=== PATIENT | male | born 1925 | race Caucasian/White ===

== ENCOUNTER 2017-01-27 13:41 | Inpatient (IN) ==
--- NOTE | 2017-01-27 14:11 | Emergency Department Report ---
General Adult HPI - General Chief complaint: Arrhythmia/Palpitations Stated complaint: Dick-40 Time Seen by Provider: 01/27/17 13:50 Source: patient, EMS Mode of arrival: EMS Limitations: no limitations - History of Present Illness HPI narrative: 89-year-old male presents to the emergency department via EMS with a chief complaint of bradycardia and bigeminal rhythm noted on cardiac rn following a questionable syncopal event versus mechanical fall into his car while attempting to get into the car. Patient denies any injury or trauma. Patient denies any pain or discomfort. Patient is well known to cardiology and Dr. Meehan. Patient was transported to [facility] via EMS. Patient was originally noted to be slightly hypotensive with a blood pressure in the 80s systolically with the bradycardia. IV fluid bolus was provided and the patient's blood pressure and heart rate both increased. Patient's heart rate comes up into the 66-72 bpm range and his blood pressure improved to approximately 100 systolically. Onset of symptoms was prior to arrival to the emergency department today. Patient denies any other complaints or associated symptoms. Symptoms have been persistent in nature with improvement as noted above. - Related Data Home Medications Medication Instructions Recorded Confirmed Amiodarone HCl 200 mg PO DAILY #0 07/31/15 01/27/17 Tamsulosin HCl 0.4 mg PO HS #0 07/31/15 01/27/17 Finasteride 5 mg PO DAILY #0 09/21/15 01/27/17 Multivitamin [Multi-Vitamin Daily] 1 tab PO DAILY #0 10/20/15 01/27/17 Carvedilol 3.125 mg PO BIDWM #0 04/14/16 01/27/17 Aspirin [Adult Low Dose Aspirin EC] 81 mg PO DAILY 01/27/17 01/27/17 Diphenhydra/Phenyleph/Acetamin 2 tab PO Q4H PRN 01/27/17 01/27/17 [Allergy Plus-Sinus Riggins Caplet] Ferrous Sulfate [Iron] 325 mg PO DAILY 01/27/17 01/27/17 Lisinopril [Prinivil] 5 mg PO DAILY 01/27/17 01/27/17 Nitroglycerin [Nitrostat] 0.4 mg SL Q5MIN3 PRN 01/27/17 01/27/17 Simvastatin [Zocor] 40 mg PO HS 01/27/17 01/27/17 Allergies Allergy/AdvReac Type Severity Reaction Status Date / Time fosinopril Allergy Unknown Verified 01/27/17 15:02 Sulfa (Sulfonamide Allergy Unknown HOARSENESS Verified 01/27/17 15:02 Antibiotics) Review of Systems Constitutional: Denies: fever, chills Eyes: Denies: eye pain, vision change ENT: Denies: ear pain, throat pain Cardiovascular: Denies: chest pain, palpitations Respiratory: Denies: cough, dyspnea Gastrointestinal: Denies: abdominal pain, nausea, vomiting, diarrhea Genitourinary: Denies: urgency, dysuria Musculoskeletal: Denies: back pain, arthralgia Integumentary: Denies: erythema, rash Neurological: Denies: headache, numbness Psychiatric: Denies: anxiety, depression Endocrine: Denies: fatigue, heat or cold intolerance Hematological/Lymphatic: Denies: easy bleeding, easy bruising Allergic/Immunologic: Denies: facial swelling, urticaria PFSH Patient Stated Medical History Cardiac Arrhythmia Yes Hypertension Yes Myocardial Infarction Yes Hx Renal Disease Yes Cardiac arrest in remote past. Surgical History: Valve replacement, CABG Family History: Reviewed and Non-contributory. - Social History Smoking status: Never smoker Substance use type: does not use Alcohol intake frequency: does not drink Physical Exam - Limitations Limitations: no limitations - General General appearance: alert, in no apparent distress - Normal Exams: Head:: Normocephalic without trauma Eyes:: Pupils are PERRLA w/ EOMI, No scleral icterus, irritation, or foreign bodies noted ENMT:: No facial trauma, nasal exudates, pharyngeal erythema, or exudates are noted Dental: No fractured, loose, or missing teeth noted Neck:: Full range of motion, without adenopathy, JVD, bruits or thyromegaly Chest/Respirations:: Clear all suarez, with good airflow, and symmetry bilaterally Cardiovascular:: Regular rate and rhythm, Pulses 2+ all extremities, capillary refill, <2 seconds all extremities Abdomen:: Bowel sounds positive, soft, non-tender, non-distended, no hepatosplenomegaly, masses or bruits noted Lymphatic:: No lymphadenopathy, or lymphedema noted Musculoskeletal:: No tenderness, or deformity noted, good range of motion, all extremities Integumentary:: No rashes, hives, or bruising noted, hair and nails, without abnormality Neurological:: Patient is alert, and oriented, cranial nerves, motor/sensory/ cerebellar, exams w/o gross deficits, to observation Psychiatric:: Patient exhibits, appropriate attention, emotion and affect Course Vital Signs Temperature 97.9 F 01/27/17 13:45 Pulse Rate 68 01/27/17 13:45 Respiratory Rate 22 01/27/17 13:45 Blood Pressure 99/55 01/27/17 13:45 Pulse Oximetry 93 01/27/17 13:45 Temperature 97.5 F 01/28/17 12:00 Pulse Rate 68 01/28/17 12:00 Respiratory Rate 24 01/28/17 12:00 Blood Pressure 135/73 01/28/17 12:00 Pulse Oximetry 99 01/28/17 12:00 Medical Decision Making - MDM Narrative Medical decision making narrative: Labs / imaging were discussed in detail with the patient and family and questions are answered. 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 Meehan comes to the ED to evaluate the patient after arrival to the ED. Upon arrival to the emergency department pacer pads were placed at bedside along with atropine. Patient is noted to have frequent PVCs on telemetry/EKG. Patient's chest x-ray shows slight fluid overload pattern. Pneumonia is not suspected due to the patient being afebrile, no productive cough, and normal white count. Discussion is had with Dr. Meehan and diuresis of the patient will be handled by Cardiology. 324 mg of aspirin by mouth times one were given in the emergency Department. Heparin drip will be initiated and monitored by the cardiology service as the patient is admitted to CCU to the service of the hospitalist and troponin is positive. Patient was discussed with Dr. Tobar and admitted to his service in improved condition. No further orders from accepting or consulting physicians who were in agreement with the current plan of management. Patient and family are in agreement with the current plan of management. Patient is admitted to the hospital in improved condition. - Lab Data Result diagrams: 01/28/17 12:50 01/28/17 04:11 Lab Results 01/27/17 Range/Units 13:24 D-Dimer 2646 H (0-230) NG/ML - EKG Data EKG #1 EKG results narrative: Sinus rhythm with first-degree AV block. Right bundle branch block. 72 bpm. Frequent PVCs. No STEMI. Reviewed with Dr. Meehan of cardiology at bedside who agrees with interpretation. Critical Care Time Critical Care Time: Yes Total Critical Care Time: 47 Attestation: 47 minutes of critical care time was assessed to the patient who was admitted to the hospital with a positive troponin. Patient was admitted to the ICU. Patient required complex medical decision-making, repeated assessment at the bedside, and had a potential for decompensation. Critical care time was spent treating the patient, and documenting the medical record, discussing the patient plan of care with family and specialists, and making telephone calls on the patient's past. Disposition Clinical Impression: Elevated troponin Disposition: 02 To [facility] Acute Care Condition: Improved Time of Disposition: 15:00 (Admit: Dr. Tobar. ) - Seen By: physician
--- NOTE | 2017-01-27 14:20 | XRay Report ---
Indication: Bradycardia PROCEDURE: XR chest 1V: Encounter: Initial Comparison: January 25, 2017 Findings: Prior sternotomy and cardiac valve replacement. Prior CABG. Bilateral shoulder replacements. Continued small effusions with lower lobe airspace disease that may be slightly worsened on the right. No pneumothorax. Cardiac silhouette remains moderately enlarged. Mediastinal contours are stable with a tortuous ectatic thoracic aorta. Impression: Continued findings of CHF with possible superimposed right lower lobe pneumonia or aspiration. .
[2017-01-27] MEDS ORDERED: ASPIRIN 81 MG CHEWABLE TABLET PO ONE (15:02)
[2017-01-27] MEDS ORDERED: NITROGLYCERIN 0.4 MG SUBLINGUAL TABLET SL PRN (16:40)
[2017-01-27] MEDS ORDERED: AMIODARONE 200 MG TABLET PO SCH (16:45)
--- NOTE | 2017-01-27 16:48 | History & Physical Report ---
History of Present Illness Date: 01/27/17 Chief complaint: Had a fall HPI: Pt was at a in which he drank a bit too much coffee, then when he was going to get back on his car, he felt a bit clumsy and fell backwards with no head trauma or LOC. Paramedics were called. Pt was apparently found to have an abnormal rhythm and breathing and was brought to the ED. At the ED initially pt had very frequent PVC's in a bigemini pattern, he was given IVF on route and currently he is not having frequent ectopy. Pt states he is feeling fine. He is on O2, he states he does not have COPD and is not on home O2. A sample was obtained to check TnI this was processed here at 14:16 and was a bit high @ 0.151. Pt states he discussed his current situation with Dr Meehan and he agreed to stay and be observed in the ICU. Pt denies current CP, or SOB. He denies any PND, orthopnea, nocturia. Pt has extensive cardiac history including being S/P CABG (30 years ago), he recalls having a stent and had about 1 year ago a vascular procedure to replace his Aortic Valve. He denies having syncope , and still drives. Review of Systems Comprehensive ROS: completed and no additional positive findings except those as stated PFSH Patient Stated Medical History Cardiac Arrhythmia Yes Hypertension Yes Myocardial Infarction Yes Hx Renal Disease Yes - Social History Smoking status: Former smoker Substance use type: does not use Alcohol intake frequency: does not drink Current residence: Apartment/Private Home Medications Home Medications Medication Instructions Recorded Confirmed Type Amiodarone HCl 200 mg PO DAILY #0 07/31/15 01/27/17 History Tamsulosin HCl 0.4 mg PO HS #0 07/31/15 01/27/17 History Finasteride 5 mg PO DAILY #0 09/21/15 01/27/17 History Multivitamin [Multi-Vitamin Daily] 1 tab PO DAILY #0 10/20/15 01/27/17 History Carvedilol 3.125 mg PO BIDWM #0 04/14/16 01/27/17 History Aspirin [Adult Low Dose Aspirin EC] 81 mg PO DAILY 01/27/17 01/27/17 History Diphenhydra/Phenyleph/Acetamin 2 tab PO Q4H PRN 01/27/17 01/27/17 History [Allergy Plus-Sinus Riggins Caplet] Ferrous Sulfate [Iron] 325 mg PO DAILY 01/27/17 01/27/17 History Lisinopril [Prinivil] 5 mg PO DAILY 01/27/17 01/27/17 History Nitroglycerin [Nitrostat] 0.4 mg SL Q5MIN3 PRN 01/27/17 01/27/17 History Simvastatin [Zocor] 40 mg PO HS 01/27/17 01/27/17 History Allergies Allergy/AdvReac Type Severity Reaction Status Date / Time fosinopril Allergy Unknown Verified 01/27/17 15:02 Sulfa (Sulfonamide Allergy Unknown HOARSENESS Verified 01/27/17 15:02 Antibiotics) Exam Vital Signs: Temperature 97.9 F 01/27/17 13:45 Pulse Rate 60 01/27/17 15:22 Respiratory Rate 20 01/27/17 15:22 Blood Pressure 108/61 01/27/17 15:22 Pulse Oximetry 98 01/27/17 15:22 Height/Weight/BMI: Height 5 ft 8 in Weight 72.575 kg - Constitutional Present: no acute distress, thin - Routine HEENT Exam Head: Present: normocephalic, atraumatic Eye: Present: EOMI, PERRL - Routine Neck Exam Present: supple - Routine Respiratory Exam Present: CTA bilaterally - Routine Cardiovascular Exam Present: RRR Comments: With frequent ectopy. Distant heart sounds. Midline scar from old CABG. - Routine Abdominal Exam Present: soft, normoactive bowel sounds, non distended, non tender - Routine Extremities Exam Absent: cyanosis, clubbing, edema - Routine Neurological Exam Present: alert, oriented X3, CN II-XII intact - Routine Psychiatric Exam Present: normal affect, cooperative Results - Labs CBC & Chem 7: 01/27/17 Unknown 01/27/17 Unknown Assessment and Plan DVT Prophylaxis: SCD's GI Prophylaxis: other Resuscitation Status: Full Code Assessment and Plan: CXR '...................................... PROCEDURE: XR chest 1V: Encounter: Initial Comparison: January 25, 2017 Findings: Prior sternotomy and cardiac valve replacement. Prior CABG. Bilateral shoulder replacements. Continued small effusions with lower lobe airspace disease that may be slightly worsened on the right. No pneumothorax. Cardiac silhouette remains moderately enlarged. Mediastinal contours are stable with a tortuous ectatic thoracic aorta. Impression: Continued findings of CHF with possible superimposed right lower lobe pneumonia or aspiration. ..................................................." SUMMARY - This is an 89 YO male that had a fall today. He presents with DUSTY, probably with dehydration and elevated TnI. Initially his telemetry showed frequent ectopy (Pt is on Amiodarone), that is now improved. His CXR suggests volume overload. He could be having a type II elevation of his TnI, will follow up serially. 1) CARDIOVASCULAR ASSESMENT A) CAD - S/P CABG WITH MILD ELEVATION OF THE TNI (Type I vs Type II). Also mild elevation of the TnI is seen in CKD. - R/O ACS - Admit to the ICU - Nitrates, BB rate control. - ASA - Consult cardiology - Check a D-Dimer if high - check a V/Q scan. - Check TnI @ 20:00 and at 4:00AM B) CHF ? Per CXR volume overload is suggested, renal function sugggests pt is dry unless this is chronic . - Check FENA now. - Will not be aggresive with fluids at this time. C) S/P AVR D) Pt gave H.O Sudden cardiac (Was successfully resucitated) 2) CKD with possible superimposed DUSTY. - Elevated BUN/Cr but ratio is normal. - Will observe serially. - Hold ACEI. 3) HYPERNATREMIA, PROBABLY HYPOVOLEMIC. - Suggests dehydration, pt was given fluid bolus via the ED - Will recheck in the AM - PT should be able to correct this on his own. 4) ANEMIA, Could be of chronic illness, but will check studies due to high MCV. 5) Leukocytosis - Could be due to acute stress - PNA ? No clinical findings to suggest, will follow serially. 6) CODE STATUS - FULL Prevention Heparin and PPI (IV) Hospital Course Summary Disclaimer: The visit summary below is not to be considered part of the above Progress Note.
[2017-01-27] MEDS ORDERED: PANTOPRAZOLE 40 MG INJECTION IVP ONE (17:15)
[2017-01-27] MEDS ORDERED: HEPARIN 5,000unit/ml 1ml INJECTION IV SCH (17:15)
[2017-01-27 17:44] VITALS: BMI 20.8
[2017-01-27] MEDS: CARVEDILOL 3.125 MG TABLET PO SCH (18:41)
[2017-01-27] MEDS ORDERED: HEPARIN - PHARMACY CONSULT MC ONE (18:46)
[2017-01-27] MEDS ORDERED: FUROSEMIDE 100 MG/10 ML INJECTION IVP ONE (18:50)
[2017-01-27] MEDS ORDERED: HEPARIN SUB-Q 5,000 UNITS/0.5 ML INJECTION SQ SCH (19:00)
--- NOTE | 2017-01-27 19:13 | Cardiology Consult Note ---
History of Present Illness Consult date: 01/27/17 <Kira Silverman 01/27/17 19:28> Requesting physician: Ran Tobar <Kira Silverman 01/27/17 19:28> Consult reason: congestive heart failure <Kira Silverman 01/27/17 19:28> Chief complaint: Fall <Kira Silverman 01/27/17 19:28> History of present illness: Yon is a 89 year old male who is well known to Dr. Meehan with a history of CAD, CABG, Aortic stenosis, Cardiomyopathy, HTN, DSLD, and PVD. On 09/21/2015, he underwent a heart [place] at [facility] [place] at which time he had PTCA of the obtuse marginal through the vein graft to the obtuse marginal. On 10/20/2015 he had PCI and stent to the vein graft to the posterior descending artery (PDA). Today he was at a , when he was going to get back on his car, he fell backwards with no head trauma or LOC. EMS arrived and he was found to have an abnormal heart rhythm and breathing and was brought to the ED. In the ED, he had very frequent PVC's in a bigemini pattern, he was given IVF on route. Initial Troponin is 0.151. Dr. Meehan examined the patient and he agreed to stay and be observed in the ICU. He denied recent illness, fever, chills, cough, sore throat, chest pain, pressure or tightness, or dyspnea. He denies any PND, orthopnea, nocturia. He denies having syncope, and still drives. <AndraKira Michel 01/27/17 19:28> Review of Systems - Constitutional Constitutional: Absent: chills, fatigue, fever(s) <Kira Silverman 01/27/17 19:28> - EENMT Eyes: Absent: blurry vision <AndraKira Michel 01/27/17 19:28> Balance: Absent: vertigo <AndraKira Michel 01/27/17 19:28> Mouth/Throat: Absent: sore throat <AndraKira Michel 01/27/17 19:28> - Cardiovascular Cardiovascular: Absent: chest pain, palpitations, syncope, dyspnea on exertion, orthopnea <Kira Silverman 01/27/17 19:28> Rhythm: Absent: abnormal rhythm <AndraKira byers 01/27/17 19:28> Vascular: Absent: pedal edema <AndraKira byers 01/27/17 19:28> - Respiratory Respiratory: Absent: cough, dyspnea <AndraKira 01/27/17 19:28> - Gastrointestinal Gastrointestinal: Absent: constipation, diarrhea, nausea, vomiting <Andra Kira 01/27/17 19:28> - Genitourinary Genitourinary: Absent: dysuria <AndraKira 01/27/17 19:28> - Integumentary/Breasts Integumentary: Absent: rash <AndraKira 01/27/17 19:28> - Neurological Neurological: Absent: dizziness, frequent falls <AndraKira 01/27/17 19: 28> [facility] Patient Stated Medical History Cardiac Arrhythmia Yes Hypertension Yes Myocardial Infarction Yes Hx Renal Disease Yes <Moncho Meehan - 02/03/17 13:54> Patient Stated Medical History Cardiac Arrhythmia Yes Hypertension Yes Myocardial Infarction Yes Hx Renal Disease Yes <AndraKira 01/27/17 19:28> Surgical History: Cardiac: cardiac bypass, cardiac cath. Joint: hip, knee, shoulder <AndraKira 01/27/17 19:28> Family History: [place] DM <AndraKira 01/27/17 19:28> - Social History Smoking status: Former smoker <AndraKira 01/27/17 19:28> Substance use type: does not use <AndraKira 01/27/17 19:28> Alcohol intake frequency: does not drink <AndraKira 01/27/17 19:28> Housing: apartment <AndraKira 01/27/17 19:28> Current occupational status: retired <AndraKira byers 01/27/17 19:28> Current residence: Apartment/Private Home <AndraKira byers 01/27/17 19:28> Medications Home Medications Medication Instructions Recorded Confirmed Type Amiodarone HCl 200 mg PO DAILY #0 03/18/16 09/15/17 History Tamsulosin HCl 0.4 mg PO HS #0 07/31/15 01/27/17 History Finasteride 5 mg PO DAILY #0 09/21/15 01/27/17 History Multivitamin [Multi-Vitamin Daily] 1 tab PO DAILY #0 10/20/15 01/27/17 History Carvedilol 3.125 mg PO BIDWM #0 04/14/16 01/27/17 History Aspirin [Adult Low Dose Aspirin EC] 81 mg PO DAILY 01/27/17 01/27/17 History Ferrous Sulfate [Iron] 325 mg PO DAILY 01/27/17 01/27/17 History Nitroglycerin [Nitrostat] 0.4 mg SL Q5MIN3 PRN 01/27/17 01/27/17 History Simvastatin [Zocor] 40 mg PO HS 01/27/17 01/27/17 History <Moncho Meehan - 02/03/17 13:54> Allergies Allergy/AdvReac Type Severity Reaction Status Date / Time fosinopril Allergy Unknown Verified 01/27/17 15:02 Sulfa (Sulfonamide Allergy Unknown HOARSENESS Verified 01/27/17 15:02 Antibiotics) <Moncho Meehan - 02/03/17 13:54> Exam Vital signs: Temperature 96.6 F L 02/03/17 07:47 Pulse Rate 61 02/03/17 07:47 Respiratory Rate 17 02/03/17 07:47 Blood Pressure 122/65 02/03/17 07:47 Pulse Oximetry 93 02/03/17 07:47 <Moncho Meehan - 02/03/17 13:54> Temperature 98.5 F 01/27/17 17:51 Pulse Rate 64 01/27/17 18:30 Respiratory Rate 27 H 01/27/17 18:30 Blood Pressure 118/66 01/27/17 18:30 Pulse Oximetry 91 01/27/17 18:30 <Kira Silverman - 01/27/17 19:28> - Constitutional no acute distress, well nourished, cooperative <Kira Silverman - 01/27/17 19: 28> - Routine HEENT Exam Head: Present: normocephalic <Kira Silverman 01/27/17 19:28> ENT: Present: mucous membranes moist <Kira Silverman [facility] 01/27/17 19:28> - Routine Neck Exam Absent: JVD, carotid bruit <Kira Silverman [facility] 01/27/17 19:28> - Routine Chest/Breast/Axilla Exam Chest wall: Absent: tenderness <AndraKira byers [facility] 01/27/17 19:28> - Routine Respiratory Exam Present: CTA bilaterally. Absent: rales, wheezes <Kira Silverman [facility] 01/27/17 19:28> - Routine Cardiovascular Exam Present: murmur (III/), irregular rhythm <Kira Silverman [facility] 01/27/17 19:28> - Routine Abdominal Exam Present: soft, normoactive bowel sounds <Kira Silverman 01/27/17 19:28> - Routine Extremities Exam Present: no edema <AndraKira byers 01/27/17 19:28> - Routine Skin Exam Present: intact, dry, warm <Kira Silverman 01/27/17 19:28> - Routine Neurological Exam Present: alert, oriented X3 <AndraKira byers [facility] 01/27/17 19:28> - Routine Psychiatric Exam Present: normal affect, normal thought process <AndraKira byers [facility] 01/27/17 19: 28> Results 02/03/17 04:54 02/03/17 04:54 <Moncho Meehan - 02/03/17 13:54> CBC 02/03/17 Range/Units 04:54 WBC 5.4 (4.5-11.0) T/MM3 RBC 3.05 L (4.50-5.90) M/MM3 Hgb 10.6 L (13.5-17.5) GM/DL Hct 31.5 L (41-53) % Plt Count 55 L (130-400) T/MM3 Comprehensive Metabolic Panel 02/03/17 Range/Units 04:54 Sodium 142 (134-144) MEQ/L Potassium 4.7 (3.6-5) MEQ/L Chloride 102 (98-107) MEQ/L Carbon Dioxide 29 (22-30) MEQ/L BUN 63.0 H* (9-20) MG/DL Creatinine 2.6 H (0.8-1.5) MG/DL Glucose 94 (75-110) MG/DL Calcium 9.0 (8.4-10.2) MG/DL Intake and Output 02/02/17 02/03/17 02/03/17 22:59 06:59 14:59 Intake Total 100 / 100 200 / 200 240 / 240 Output Total 700 / 700 775 / 775 600 / 600 Balance -600 / -600 -575 / -575 -360 / -360 Intake: Oral 100 / 100 200 / 200 240 / 240 Output: Urine 700 / 700 775 / 775 600 / 600 Other: Urine Appearance Clear Clear Clear Urine Color Yellow Yellow Pale Yellow Urine Odor Normal Normal # Voids 1 <Moncho Meehan - 02/03/17 13:54> Cardiac Enzymes 01/27/17 Range/Units Unknown AST 37 (17-59) U/L Troponin I 0.151 H (0-0.12) ng/ml CBC 01/27/17 Range/Units Unknown WBC 7.9 (4.5-11.0) T/MM3 RBC 3.14 L (4.50-5.90) M/MM3 Hgb 10.8 L (13.5-17.5) GM/DL Hct 33.9 L (41-53) % Plt Count 114 L (130-400) T/MM3 Neut # 6.6 (1.8-7.7) T/MM3 Lymph # 0.8 L (1-4.8) T/MM3 [place] # 0.5 (0-0.8) T/MM3 Eos # 0.0 (0-0.5) T/MM3 Baso # 0.0 (0-0.2) T/MM3 Comprehensive Metabolic Panel 01/27/17 Range/Units Unknown Sodium 149 H (134-144) MEQ/L Potassium 4.5 (3.6-5) MEQ/L Chloride 112 H (98-107) MEQ/L Carbon Dioxide 24 (22-30) MEQ/L BUN 49.0 H (9-20) MG/DL Creatinine 2.7 H (0.8-1.5) MG/DL Glucose 102 (75-110) MG/DL Calcium 9.0 (8.4-10.2) MG/DL AST 37 (17-59) U/L ALT 42 (21-72) U/L Alkaline Phosphatase 57 (38-126) U/L Total Protein 6.4 (6.3-8.2) G/DL Albumin 3.6 (3.5-5.0) G/DL Intake and Output 01/27/17 01/27/17 01/27/17 06:59 14:59 22:59 Other: Weight 145 lb 8.081 oz Patient Weight 01/28/17 06:59 Weight 145 lb 8.081 oz Abnormal Lab Results 01/27/17 01/27/17 01/27/17 13:24 Unknown Unknown WBC 7.9 RBC 3.14 L Hgb 10.8 L Hct 33.9 L MCV 108.0 H MCH 34.4 H MCHC 31.9 RDW Std Deviation 55.4 H Plt Count 114 L MPV 11.2 Immature Gran % (Auto) 0.5 Neut % (Auto) 83.3 H Lymph % (Auto) 9.6 L [place] % (Auto) 6.2 Eos % (Auto) 0.1 Baso % (Auto) 0.3 Neut # 6.6 Lymph # 0.8 L [place] # 0.5 Eos # 0.0 Baso # 0.0 Abs Immat Gran (auto) 0.04 H Absolute Retic Percent Retic Immature Retic Fraction Retic Hgb Content CHr D-Dimer 2646 H Turbidity < 20 Sodium 149 H Potassium 4.5 Chloride 112 H Carbon Dioxide 24 Anion Gap 13 BUN 49.0 H Creatinine 2.7 H GFR Calculation 22 BUN/Creatinine Ratio 18 Glucose 102 Calculated Osmolality 299 H Calcium 9.0 Total Bilirubin 0.80 Icterus Index < 2 AST 37 ALT 42 Alkaline Phosphatase 57 Troponin I 0.151 H Total Protein 6.4 Albumin 3.6 Globulin 2.8 Albumin/Globulin Ratio 1.3 Specimen Hemolysis < 15 01/27/17 Unknown WBC RBC Hgb Hct MCV MCH MCHC RDW Std Deviation Plt Count MPV Immature Gran % (Auto) Neut % (Auto) Lymph % (Auto) [place] % (Auto) Eos % (Auto) Baso % (Auto) Neut # Lymph # [place] # Eos # Baso # Abs Immat Gran (auto) Absolute Retic 0.0756 Percent Retic 2.4 H Immature Retic Fraction 12.9 Retic Hgb Content CHr 33.8 D-Dimer Turbidity Sodium Potassium Chloride Carbon Dioxide Anion Gap BUN Creatinine GFR Calculation BUN/Creatinine Ratio Glucose Calculated Osmolality Calcium Total Bilirubin Icterus Index AST ALT Alkaline Phosphatase Troponin I Total Protein Albumin Globulin Albumin/Globulin Ratio Specimen Hemolysis <Kira Silverman - 01/27/17 19:28> - Imaging and Cardiology EKG results: image reviewed <Kira Silverman - 01/27/17 19:28> Imaging & Cardiology Narrative: Date of Exam: 01/27/17 Ordering Provider: Agapito Rascon DO Type of Exam(s): XR chest 1V Reason for Exam(s): Bradycardia Indication: Bradycardia PROCEDURE: XR chest 1V: Encounter: Initial Comparison: January 25, 2017 Findings: Prior sternotomy and cardiac valve replacement. Prior CABG. Bilateral shoulder replacements. Continued small effusions with lower lobe airspace disease that may be slightly worsened on the right. No pneumothorax. Cardiac silhouette remains moderately enlarged. Mediastinal contours are stable with a tortuous ectatic thoracic aorta. Impression: Continued findings of CHF with possible superimposed right lower lobe pneumonia or aspiration. 01/27/17 19:19 <Kira Silverman - 01/27/17 19:28> EKG interpretations - Dysrhythmias Sinus rhythms and dysrhythmias: sinus rhythm <Kira Silverman - 01/27/17 19:28> Ventricular dysrhythmias: ventricular premature complexes <Kira Silverman - 19:28> - Blocks, axis, hypertrophy, ST abn AV and intraventricular conduction: 1 AV block, right bundle branch block (fixed /intermittent, complete/incomplete) <Kira Silverman - 01/27/17 19:28> Repolarization changes or abnormalities: nonspecific abnormality, ST segment, and/or T wave <Kira Silverman - 01/27/17 19:28> Assessment and Plan - Attestation Attestation Narrative: 02/03/17 13:54 Recommendation After examining the patient I agree with the above assessment. I am involved in the formulation of the patient's plan of care. <Moncho Meehan - 02/03/17 13:54> - Assessment and Plan (1) Atherosclerotic heart disease of [place] coronary artery without angina pectoris Status: Acute (2) Elevated troponin Status: Resolved (3) CKD (chronic kidney disease) Status: Acute (4) Cardiomyopathy Status: Acute (5) Essential (primary) hypertension Status: Acute (6) Mixed hyperlipidemia Status: Acute (7) Dyspnea, unspecified Status: Acute (8) Ventricular premature complex Status: Chronic <Moncho Meehan - 02/03/17 13:54> (1) Dyspnea, unspecified (2) Atherosclerotic heart disease of [place] coronary artery without angina pectoris Status: Acute (3) Elevated troponin Status: Acute Could be due to hypotensive episode, chronic kidney disease or ACS. Trend serial troponins. Heparin drip per pharmacy protocol. (4) CKD (chronic kidney disease) Status: Acute (5) Cardiomyopathy Status: Acute Continue home Coreg (6) Essential (primary) hypertension Status: Acute continue Lisinopril (7) Mixed hyperlipidemia Status: Acute Takes Simvastatin, PCP manages <Kira Silverman 01/30/17 17:57> Hospital Course Summary Disclaimer: The visit summary below is not to be considered part of the above Progress Note. <Moncho Meehan - 02/03/17 13:54> The visit summary below is not to be considered part of the above Progress Note. <Kira Silverman 01/27/17 19:28> Sepsis Assessment - Evaluation Sepsis screening result: No Definite Risk <Kira Silverman 01/27/17 19:28>
[2017-01-27] MEDS: AMIODARONE 900 MG in NS 500ml 500 ML IV SCH (19:18)
--- NOTE | 2017-01-27 19:23 | Pharmacy Consult ---
Pharmacy Consult-Heparin - Laboratory Information Heparin Plt Count 114 T/MM3 (130-400) L 01/27/17 Unknown - Consult Information Heparin drip per pharmacy protocol 5000 units of Heparin SQ given less than 1 hour prior to Heparin drip orders. No Bolus ordered due to SQ Heparin. Start Heparin drip at 800 units/hr (20 ml/hr ) goal PTT range- 50-75 sec. Pharmacy will monitor and adjust as needed. Thank you, Randi Gill [facility]
[2017-01-27] MEDS: HEPARIN DRIP 20,000 UNIT/500 ML BAG IV SCH (19:26)
[2017-01-27] MEDS ORDERED: SALINE 0.65% NASAL SPRAY 44 ML BOTTLE EA NOSTRIL PRN (19:51)
[2017-01-27] MEDS: TAMSULOSIN 0.4 MG CAPSULE PO SCH (20:07)
[2017-01-27] MEDS: SIMVASTATIN 40 MG TABLET PO SCH (20:07)
--- NOTE | 2017-01-28 06:38 | Pharmacy Consult ---
Pharmacy Consult-Heparin - Laboratory Information Heparin Plt Count 77 T/MM3 (130-400) L 01/28/17 04:11 APTT 62.9 SEC (24-36) H 01/28/17 04:11 - Consult Information We will continue heparin drip at current rate of 20mL per hour. Ordered 2nd PTT at 1200 today and adjust if needed. Platelet count was noted at 77 T/MM3 with last lab. Thanks
[2017-01-28] MEDS: ASPIRIN *EC* 81 MG TABLET PO SCH (08:18)
[2017-01-28] MEDS: FINASTERIDE 5 MG TABLET PO SCH (08:18)
[2017-01-28] MEDS: FERROUS SULFATE 324 MG TABLET PO SCH (08:18)
[2017-01-28] MEDS: CARVEDILOL 3.125 MG TABLET PO SCH ×2 (08:18→18:11)
[2017-01-28] MEDS ORDERED: LISINOPRIL 5 MG TABLET PO SCH (09:00)
--- NOTE | 2017-01-28 10:37 | Progress Note ---
Subjective: Pt states he is feeling fine, he did not sleep well last night, otherwise appears to be doing fairly well. Noted Heparin drip and Amiodarone drip. Objective Vital signs: Temperature 97.6 F 01/27/17 20:15 Pulse Rate 67 01/28/17 08:00 Respiratory Rate 18 01/28/17 06:00 Blood Pressure 150/74 H 01/28/17 06:00 Pulse Oximetry 93 01/28/17 06:00 Height/Weight/BMI: Height 5 ft 10 in Weight 66.3 kg Body Mass Index 20.8 - Constitutional Present: no acute distress - Routine HEENT Exam Head: Present: normocephalic, atraumatic Eye: Present: EOMI, PERRL - Routine Respiratory Exam Present: CTA bilaterally - Routine Cardiovascular Exam Present: irregular rhythm - Routine Abdominal Exam Present: soft, non distended, non tender - Routine Extremities Exam Absent: cyanosis, clubbing, edema - Routine Neurological Exam Present: alert, oriented X3, CN II-XII intact - Routine Psychiatric Exam Present: normal affect, cooperative Results - Labs CBC & Chem 7: 01/28/17 04:11 01/28/17 04:11 Assessment and Plan (1) Elevated troponin Current visit: Yes Status: Acute 01/28/17 10:33 Could be due to CHF, as it remains "Flat" or due to CKD. (2) Thrombocytopenia Current visit: Yes Status: Acute DVT Prophylaxis: Heparin drip GI Prophylaxis: other Resuscitation Status: Full Code Assessment and Plan: SUMMARY - This is an 89 YO male that had a fall today, then was brought to the ED by the paramedics. Pt had marked ectopy (Frequent PVC's). He presents with DUSTY, probably with dehydration and elevated TnI. Initially his telemetry showed frequent ectopy, this has now improved (pt is at the ICU on Amiodarone drip). His CXR on admission suggested volume overload. His platelets fell precipitously from yesterday (114K -> 77K); will recheck at 12:30 today (01/28) . 1) CARDIOVASCULAR ASSESMENT A) CAD - S/P CABG WITH MILD ELEVATION OF THE TNI (Type I vs Type II). His TnI is flat suggesting a Type II elevation (CHF +/- CKD) - Continue close observation in the ICU. - Nitrates, BB rate control. - ASA - Check a V/Q scan now, since D-Dimer did not R/O a PE. B) CHF ? Per CXR volume overload is suggested, renal function suggests pt is dry unless this is chronic . - FENA above 1%; reliability is questionable if pt received lasix before the sample was taken. C) S/P AVR D) Sudden cardiac (Was successfully resucitated) 2) CKD with possible superimposed DUSTY. FENA on admission was 1.6%, pt was on Lasix. Would be able to tell better if we could do a fractional excretion of urea, but that test is not done here. - BUN/Cr (01/28) = 50/2.5 - FENA (01/27) = 1.6% - Continue holding ACEI. - Phosphorus is high - pt on Zocor - will check CPK. 3) HYPERNATREMIA, PROBABLY HYPOVOLEMIC; IMPROVING. - Na is 146 (01/28) - PT should be able to correct this on his own. 4) HEMATOLOGICAL ASSESMENET A) ANEMIA, Could be of chronic illness, but will check studies due to high MCV. B) Thrombocytopenia, worse. - PLT on admission - 114 K; today 77K, will recheck at 12:30 C) Leukocytosis - Could be due to acute stress - PNA ? No clinical findings to suggest, infiltrates most likely due to failurel. 5) CODE STATUS - FULL Prevention PPI (IV) Pt is on therapetutic Heparin. - Time spent with patient 25 - 35 minutes Sepsis Assessment - Evaluation Sepsis screening result: No Definite Risk Hospital Course Summary Disclaimer: The visit summary below is not to be considered part of the above Progress Note.
--- NOTE | 2017-01-28 11:26 | Cardiology Progress Note ---
Subjective Principal diagnosis: CAD, s/p CABG, PCI; Severe , s/p TAVR; Ischemic Cardiomyopathy (improved) Interval history: Mr Sepulveda, is feeling well this am. PVC's have significantly improved. He is on Amiodarone infusion, and on IV Heparin gtt. Troponins remained flat. He is sitting in chair comfortably, doesn't appear in respiratory distress at rest. Chart review revealed; Patient has long standing CAD, underwent CABG long time ago, in 2015 underwent PTCA of [place] PDA via SVG to PDA in 10/2015. He at that time had severely reduced LV function (LVEF 30%); and severe aortic stenosis. He then underwent Transfemoral Transcatheter Aortic Valve Replacement (Left TF- TAVR), using a 26mm Gibson-3 bioprosthesis on 12/2015. He did well after TAVR, his LV function improved. His one year follow-up echo on 12/2016, showed normal LV function. He was seen in Valve clinic at [facility], and was doing well at that time. Reports for last week or two developed significant dyspnea with minimal exertion, he saw Dr Meehan in clinic on 01/25/17, was advised to undergo Adenosine MPI, scheduled in 2-3 weeks. Exam Vital signs: Temperature 97.8 F 01/28/17 10:00 Pulse Rate 52 L 01/28/17 10:00 Respiratory Rate 24 01/28/17 10:00 Blood Pressure 135/57 01/28/17 10:00 Pulse Oximetry 92 01/28/17 10:00 - Constitutional no acute distress, thin, cooperative - Routine Neck Exam Present: supple, JVD, normal carotid upstroke - Routine Chest/Breast/Axilla Exam Chest wall: Absent: tenderness Axillae: Absent: lymphadenopathy - Routine Respiratory Exam Present: crackles Comments: occasional left basal crackles - Routine Cardiovascular Exam Present: RRR, S1, murmur, S3 Comments: mid-systolic murmur over aortic region - Routine Abdominal Exam Present: soft, non distended, non tender - Routine Extremities Exam Present: no edema - Routine Neurological Exam Present: alert, oriented X3 Progress Note-A&P - Time Spent With Patient Total time spent is greater than 50% in coordination of care (as documented) at patient's floor/unit and/or counseling patient: greater than 35 minutes (1) Atherosclerotic heart disease of [place] coronary artery without angina pectoris Status: Acute Current Visit: Yes (2) Elevated troponin Status: Acute Current Visit: Yes (3) CKD (chronic kidney disease) Status: Acute Current Visit: Yes (4) Cardiomyopathy Status: Acute Current Visit: Yes (5) Essential (primary) hypertension Status: Acute Current Visit: Yes (6) Mixed hyperlipidemia Status: Acute Current Visit: Yes - Assessment and Plan 1. Syncope: frequent ectopy noted on telemetry Speaking with him, is appears to be a mechanical fall, rather than a true syncopal event. But given significant ectopy, we will treat with intravenous amiodarone ( ectopy has improved), and then resume home amiodarone Monitor on telemetry 2. Elevated troponins: Remained flat, in setting of DUSTY, likely due to delayed clearance rather than acute coronary syndrome EKG largely unchanged from before (baseline RBBB with ST-T changes) Patient reports no symptoms We can stop heparin gtt now from ACS stand-point, but if pulmonary embolism is suspected may be reasonable to continue until diagnosis is made or rejected 3. CAD, s/p CABG & PCI Continue ASA May be reasonable to hold Statin in setting of DUSTY Continue Carvedilol 4. Hx Severe , s/p TAVR Repeat TTE, to assess valve function and LV function and filling pressures 5. DUSTY on CKD: Baseline Creat 1.5-1.8 Hold lisinopril Appears near euvolemic at this time, will hold off on further diuresis 6. Progressively worsening dyspnea: Unclear etiology at this point, will need further work-up Will repeat TTE, to assess valve function and LV function and filling pressures Agree with VQ Scan to rule out PE He will likely need a coronary evaluation, but due to DUSTY, can be delayed Will need PFTs once respiratory status improves Sepsis Assessment - Evaluation Sepsis screening result: No Definite Risk Hospital Course Summary Disclaimer: The visit summary below is not to be considered part of the above Progress Note.
--- NOTE | 2017-01-28 15:49 | Pharmacy Consult ---
Pharmacy Consult-Heparin - Laboratory Information Heparin Plt Count 96 T/MM3 (130-400) L 01/28/17 12:50 APTT 62.1 SEC (24-36) H 01/28/17 12:50 - Consult Information Heparin protocol day 2 goal PTT range= 50-75 PTT = 62.1 sec is within goal range. Continue Heparin drip at 800 unit/hr ( 20 ml/hr). next PTT with am labs. Pharmacy will monitor and adjust as needed. Thank you for the dosing protocol, Randi Gill RPH
[2017-01-28] MEDS: AMIODARONE 200 MG TABLET PO SCH (20:00)
[2017-01-28] MEDS: HEPARIN DRIP 20,000 UNIT/500 ML BAG IV SCH (20:00)
[2017-01-28] MEDS: AMIODARONE 900 MG in NS 500ml 500 ML IV SCH (21:08)
[2017-01-28] MEDS: TAMSULOSIN 0.4 MG CAPSULE PO SCH (21:30)
[2017-01-28] MEDS: SIMVASTATIN 40 MG TABLET PO SCH (21:30)
[2017-01-28] MEDS: CALCIUM CARBONATE Chewable 750mg TABLET PO PRN (21:31)
--- NOTE | 2017-01-29 08:23 | Pharmacy Consult ---
Pharmacy Consult-Heparin - Laboratory Information Heparin Plt Count 87 T/MM3 (130-400) L 01/29/17 03:50 APTT 56.2 SEC (24-36) H 01/29/17 03:50 - Consult Information HEPARIN CONSULT (Recurring): PTT = 56.2 Sec. Platelet count = 77 T/mm3. Will continue Heparin Drip at 800 units/hr (20 ml/hr). Will recheck PTT and adjust regimen as needed. Thank you.
[2017-01-29] MEDS: AMIODARONE 200 MG TABLET PO SCH (09:11)
[2017-01-29] MEDS: ASPIRIN *EC* 81 MG TABLET PO SCH (09:11)
[2017-01-29] MEDS: CARVEDILOL 3.125 MG TABLET PO SCH ×2 (09:24→17:02)
[2017-01-29] MEDS: FINASTERIDE 5 MG TABLET PO SCH (09:25)
[2017-01-29] MEDS: FERROUS SULFATE 324 MG TABLET PO SCH (09:25)
--- NOTE | 2017-01-29 11:41 | Progress Note ---
Subjective: Mr. Sepulveda complains of exertional dyspnea walking very short distances. He is not short of breath at rest and denies cough, pleuritic pain, or chest pain. He reports having chronic nocturnal nasal congestion and that using oxygen helped last night. No hypoxia was reported however patient was described as being somewhat labored prior to initiation of oxygen. He additionally described gas pains which were not relieved with Tums and continues to report epigastric "acid" pain at night for which she uses [employer] intermittently at home. He complains of generalized weakness and difficulty sleeping. He denied fevers or chills and reports no pain other than the epigastric nocturnal discomfort. Objective Vital signs: Temperature 97.4 F 01/29/17 10:00 Pulse Rate 58 L 01/29/17 11:00 Respiratory Rate 18 01/29/17 11:00 Blood Pressure 132/63 01/29/17 11:00 Pulse Oximetry 94 - RA 01/29/17 11:00 EXAM General-NAD, alert HEENT-PER, conjunctiva clear, sclera anicteric, oropharynx clear Lungs-respirations nonlabored, decreased airflow throughout-especially at the bases; breath sounds clear Cardiac-regular rhythm with frequent ectopy, S1-S2 Abd-soft, nontender, decreased bowel sounds Ext-without edema Skin-significant bruising on the forearms bilaterally, no generalized rash Neuro-MAEW Psych-calm, cooperative - Height/Weight/BMI: Height 1.78 m Weight 66.3 kg Body Mass Index 20.8 Results - Labs CBC & Chem 7: 01/29/17 03:50 01/29/17 03:50 Labs: PTT 56.2 seconds - ECG Data Tracing #1 I reviewed this ECG and interpreted as documented below: (EKG yesterday morning reviewed-right bundle branch block with secondary T-wave abnormalities, sinus bradycardia with first-degree block) Assessment and Plan (1) Near syncope Current visit: Yes Status: Acute (2) Elevated troponin Current visit: Yes Status: Acute (3) Thrombocytopenia Current visit: Yes Status: Acute DVT Prophylaxis: Heparin drip GI Prophylaxis: Pepcid Resuscitation Status: Full Code Assessment and Plan: SUMMARY - This is an 89 YO male that had a fall today, then was brought to the ED by the paramedics. Pt had marked ectopy (Frequent PVC's). He presents with DUSTY, probably with dehydration and elevated TnI. Initially his telemetry showed frequent ectopy, this has now improved (pt is at the ICU on Amiodarone drip). His CXR on admission suggested volume overload. His platelets fell precipitously from yesterday (114K -> 77K); will recheck at 12:30 today (01/28) . 1) CARDIOVASCULAR ASSESMENT A) CAD - S/P CABG WITH MILD ELEVATION OF THE TNI (Type I vs Type II). His TnI is flat suggesting a Type II elevation (CHF +/- CKD) - Continue close observation in the ICU. - Nitrates, BB rate control. - ASA - Check a V/Q scan now, since D-Dimer did not R/O a PE. B) CHF ? Per CXR volume overload is suggested, renal function suggests pt is dry unless this is chronic . C) S/P AVR (TAVR Dec 2015) D) h/o sudden cardiac (Was successfully resucitated) 2) DUSTY/CKD, stage 3 . FENA on admission was 1.6%, pt was on Lasix. Would be able to tell better if we could do a fractional excretion of urea, but that test is not done here. - BUN/Cr (01/28) = 50/2.5 - FENA (01/27) = 1.6% - baseline Cr 1.4-1.6 2-10/28; 2.4-2.5 04/29 - Continue holding ACEI. - Phosphorus is high -consistent with chronic kidney disease. 3) HYPERNATREMIA, PROBABLY HYPOVOLEMIC; IMPROVING. - Na is 146 (01/28) - PT should be able to correct this on his own. 4) HEMATOLOGICAL ASSESMENT A) ANEMIA, [id number]/folic acid pending; in conjunction with thrombocytopenia suggestive of underlying marrow dysfunction although reticulocyte count elevated. B) Thrombocytopenia, worse. - PLT on admission - 114 K; today 77K, will recheck at 12:30 C) Leukocytosis - Could be due to acute stress - PNA ? No clinical findings to suggest, infiltrates most likely due to failurel. 5) EPIGASTRIC DISCOMFORT - probable indigestion, Pepcid initiated daily at bedtime; Tums when necessary 6) EXERTIONAL DYSPNEA, probable CHF 7) HTN, well controlled 8) ISCHEMIC CARDIOMYOPATHY 9) WEAKNESS, GENERALIZED- with near syncope on admission 01/29/17-continues to have frequent PVCs, generalized weakness, and nocturnal epigastric discomfort. Stable to transfer out of ICU to complete evaluation for near syncope. Continue heparin drip pending VQ scan in the morning (d-dimer significantly elevated on admission). Repeat chest x-ray today-initial films suggested volume overload/CHF although exam was not compatible with same. Renal function raised question of acute kidney injury on admission and renal function has improved slowly during hospitalization without IV fluids (although the patient's been on IV amiodarone and IV heparin). Fluid balance is essentially even from admission. Needs PT/OT evaluations. Echocardiogram pending; check BNP with a.m. labs (patient reports diuretic discontinued recently). Supplemental history provided by nursing, telemetry strips reviewed by myself; chest x-ray ordered and prior x-ray reviewed by myself. EKG is reviewed by myself. Laboratory data reviewed and compared to past data. CODE STATUS - FULL Prevention: Pepcid 20 mg daily at bedtime Pt is on therapetutic Heparin. Sepsis Assessment - Evaluation Sepsis screening result: No Definite Risk Hospital Course Summary Disclaimer: The visit summary below is not to be considered part of the above Progress Note. Hospital Course: 01/29/17-continues to have frequent PVCs, generalized weakness, and nocturnal epigastric discomfort. Stable to transfer out of ICU to complete evaluation for near syncope. Continue heparin drip pending VQ scan in the morning (d-dimer significantly elevated on admission). Repeat chest x-ray today-initial films suggested volume overload/CHF although exam was not compatible with same. Renal function raised question of acute kidney injury on admission and renal function has improved slowly during hospitalization without IV fluids (although the patient's been on IV amiodarone and IV heparin). Fluid balance is essentially even from admission. Needs PT/OT evaluations. Echocardiogram pending; check BNP with a.m. labs (patient reports diuretic discontinued recently). Supplemental history provided by nursing, telemetry strips reviewed by myself; chest x-ray ordered and prior x-ray reviewed by myself. EKG is reviewed by myself. Laboratory data reviewed and compared to past data.
[2017-01-29] MEDS: SIMVASTATIN 40 MG TABLET PO SCH (20:13)
[2017-01-29] MEDS: FAMOTIDINE 20 MG TABLET PO SCH (20:13)
[2017-01-29] MEDS: TAMSULOSIN 0.4 MG CAPSULE PO SCH (20:13)
[2017-01-29] MEDS: HEPARIN DRIP 20,000 UNIT/500 ML BAG IV SCH (23:27)
--- NOTE | 2017-01-30 06:34 | Pharmacy Consult ---
Pharmacy Consult-Heparin - Laboratory Information Heparin Plt Count 87 T/MM3 (130-400) L 01/30/17 04:41 APTT 59.3 SEC (24-36) H 01/30/17 06:03 - Consult Information Will continue heparin drip at 20 mls/hr = 800 units/hr. (platelets at 87 T/mm3) Thank you.
[2017-01-30] MEDS ORDERED: SALINE FLUSH 10ml SYRINGE ONE (08:02)
--- NOTE | 2017-01-30 08:31 | XRay Report ---
Indication: exertional dyspnea Procedure: XR chest 2V: Encounter: Initial Comparison: 01/27/2017, 01/25/2017 Technique: PA and lateral radiographs of the chest were obtained. Findings: Lungs and airways: Low lung volumes. Bibasilar airspace opacities. Stable pulmonary vasculature. Pleura: Small bilateral pleural effusions. No pneumothorax. Heart and mediastinum: The cardiomediastinal silhouette and great vessels appear unchanged with redemonstration of aortic atherosclerosis and postoperative changes of CABG and valve replacement. Osseous structures and soft tissues: No acute osseous abnormality is seen. Postoperative changes of median sternotomy and bilateral shoulder arthroplasty. Impression: Persistent small bilateral pleural effusions with associated bibasilar airspace opacities likely related to relaxation atelectasis. .
[2017-01-30] MEDS: ASPIRIN *EC* 81 MG TABLET PO SCH (08:38)
[2017-01-30] MEDS: AMIODARONE 200 MG TABLET PO SCH (08:38)
[2017-01-30] MEDS: FERROUS SULFATE 324 MG TABLET PO SCH (08:38)
[2017-01-30] MEDS: FINASTERIDE 5 MG TABLET PO SCH (08:38)
[2017-01-30] MEDS: CARVEDILOL 3.125 MG TABLET PO SCH ×2 (08:38→18:13)
--- NOTE | 2017-01-30 09:45 | Nuclear Medicine Report ---
EXAM: Ventilation-Perfusion Scintigraphy. DATE: 01/30/2017 8:00 AM Encounter: Initial INDICATIONS: Shortness of breath for four days, evaluate for pulmonary embolism COMPARISON: Chest radiographs 01/29/2017, pulmonary CT angiogram 06/12/2015 RADIOPHARMACEUTICAL: 6.5 mCi Xe-133 gas by inhalation and 43 mCi Tc-99m MAA IV. FINDINGS: The Xe-133 ventilation images demonstrate heterogeneous distribution of activity. The perfusion images also demonstrate heterogeneous distribution of activity bilaterally which appears matched to the ventilation images with no segmental ventilation/perfusion mismatches appreciated. IMPRESSION: Low probability for acute pulmonary embolism. .
[2017-01-30] MEDS ORDERED: AMIODARONE 150mg/3ml INJECTION IV ONE (13:10)
[2017-01-30] MEDS ORDERED: AMIODARONE 150 MG in NS 100 ML IV ONE (13:15)
[2017-01-30] MEDS ORDERED: NS FLUSH BAG 500ml IV PRN (13:49)
--- NOTE | 2017-01-30 15:05 | Progress Note ---
Subjective: Pt is doing well today, has no complaints. Denies CP, SOB. Has a good appetite and overall is feeling well. Had a NSVT episode ( 9 beats) at 4:47AM. Objective Vital signs: Temperature 96.4 F L 01/30/17 11:39 Pulse Rate 57 L 01/30/17 14:20 Respiratory Rate 28 H 01/30/17 11:39 Blood Pressure 95/53 01/30/17 14:20 Pulse Oximetry 92 01/30/17 13:50 Cardiac Ectopy: Frequent PVC's Height/Weight/BMI: Height 5 ft 10 in Weight 79 kg Body Mass Index 20.8 Comments: Episode of NSVT early this AM. - Constitutional Present: no acute distress - Routine HEENT Exam Head: Present: normocephalic, atraumatic Eye: Present: EOMI, PERRL - Routine Respiratory Exam Present: CTA bilaterally - Routine Cardiovascular Exam Present: irregular rhythm - Routine Abdominal Exam Present: soft, non tender, distended - Routine Extremities Exam Absent: cyanosis, clubbing, edema - Routine Neurological Exam Present: alert, oriented X3, CN II-XII intact - Routine Psychiatric Exam Present: normal affect, cooperative Results - Labs CBC & Chem 7: 01/30/17 04:41 01/30/17 04:41 Assessment and Plan (1) Elevated troponin Current visit: Yes Status: Acute 01/28/17 10:33 Could be due to CHF, as it remains "Flat" or due to CKD. (2) Thrombocytopenia Current visit: Yes Status: Acute (3) Near syncope Current visit: Yes Status: Acute DVT Prophylaxis: SCD's GI Prophylaxis: Pepcid Resuscitation Status: Full Code Assessment and Plan: SUMMARY - This is an 89 YO male that had a fall on the day of admisison, then was brought to the ED by the paramedics. Pt had marked ectopy (Frequent PVC's) at the ED. He also presented with DUSTY, probably with dehydration and elevated TnI. He was admitted to the ICU and placed on Amiodarone drip, with improvement of his ectopy. His CXR on admission suggested volume overload. He continues to have episodes of NSVT - last one today (01/30) at 4:47AM 1) CARDIOVASCULAR ASSESSMENT - A) CAD - S/P CABG WITH MILD ELEVATION OF THE TNI (Type I vs Type II). His TnI is flat suggesting a Type II elevation (CHF +/- CKD) - Continues to have marked ectopy - Nitrates, BB rate control. - ASA - Stop heparin drip since V/Q scan was low probability B) S/P AVR (TAVR Dec 2015) C) h/o sudden cardiac (Was successfully resucitated) with ongoing episodes of NSVT. Echocardiogram was done today, results pending. D) HTN - Well controlled. 2) DUSTY/CKD, stage 3 . FENA on admission was 1.6%, pt was on Lasix. Will check a renal U/S to R/O obstruction component. - BUN/Cr = 51/2.1 3) HYPERNATREMIA, RESOLVED (NA 140 TODAY) 4) HEMATOLOGICAL ASSESMENT A) ANEMIA, WITH MACROCYTOSIS - B12 AND FOLATE NORMAL. B) Thrombocytopenia, stable. Trend not consistent with HIT - Heparin stopped V/Q scan normal. C) Leukocytosis; resolved. 5) EPIGASTRIC DISCOMFORT - probable indigestion, Pepcid initiated daily at bedtime; Tums when necessary CODE STATUS - FULL Prevention: - Pepcid 20 mg daily at bedtime - Change to SCD's - Time spent with patient 25 - 35 minutes Sepsis Assessment - Evaluation Sepsis screening result: No Definite Risk Hospital Course Summary Disclaimer: The visit summary below is not to be considered part of the above Progress Note. Hospital Course: 01/29/17-continues to have frequent PVCs, generalized weakness, and nocturnal epigastric discomfort. Stable to transfer out of ICU to complete evaluation for near syncope. Continue heparin drip pending VQ scan in the morning (d-dimer significantly elevated on admission). Repeat chest x-ray today-initial films suggested volume overload/CHF although exam was not compatible with same. Renal function raised question of acute kidney injury on admission and renal function has improved slowly during hospitalization without IV fluids (although the patient's been on IV amiodarone and IV heparin). Fluid balance is essentially even from admission. Needs PT/OT evaluations. Echocardiogram pending; check BNP with a.m. labs (patient reports diuretic discontinued recently). Supplemental history provided by nursing, telemetry strips reviewed by myself; chest x-ray ordered and prior x-ray reviewed by myself. EKG is reviewed by myself. Laboratory data reviewed and compared to past data.
--- NOTE | 2017-01-30 15:07 | Cardiology Progress Note ---
Subjective Principal diagnosis: CAD, s/p CABG, PCI; Severe , s/p TAVR; Ischemic Cardiomyopathy (improved) <Kira Silverman 01/30/17 15:07> Interval history: Wale is seen in follow up for arrhythmia and CHF. He c/o SOA which is persistent although oxygenation is adequate on room air.. He denies chest pain or pressure, palpitations, dizziness or lightheadedness. <Kira Silverman 01/30/17 15:42> Exam Vital signs: Temperature 96.6 F L 02/03/17 07:47 Pulse Rate 61 02/03/17 07:47 Respiratory Rate 17 02/03/17 07:47 Blood Pressure 122/65 02/03/17 07:47 Pulse Oximetry 93 02/03/17 07:47 <[email or web address] - 02/03/17 13:58> Temperature 96.4 F L 01/30/17 11:39 Pulse Rate 57 L 01/30/17 14:20 Respiratory Rate 28 H 01/30/17 11:39 Blood Pressure 95/53 01/30/17 14:20 Pulse Oximetry 92 01/30/17 13:50 <Kira Silverman 01/30/17 15:07> - Constitutional mild distress, well nourished, well developed, cooperative <Kira Silverman 01/30/17 15:42> - Routine HEENT Exam Head: Present: normocephalic <Kira Silverman 01/30/17 15:42> ENT: Present: mucous membranes moist <Kira Silverman 01/30/17 15:42> - Routine Neck Exam Present: JVD. Absent: carotid bruit <Kira Silverman 01/30/17 15:42> - Routine Chest/Breast/Axilla Exam Chest wall: Absent: tenderness <Kira Silverman 01/30/17 15:42> - Routine Respiratory Exam Present: CTA bilaterally. Absent: rales, wheezes <Kira Silverman 01/30/17 15:42> - Routine Cardiovascular Exam Present: murmur (III/), irregular rhythm, JVD <AndraKira Michel 01/30/17 15: 42> - Routine Abdominal Exam Present: soft, normoactive bowel sounds <Kira Silverman - 01/30/17 15:42> - Routine Extremities Exam Present: no edema <Kira Silverman - 01/30/17 15:42> - Routine Skin Exam Present: intact, dry, warm <Kira Silverman - 01/30/17 15:42> - Routine Neurological Exam Present: alert, oriented X3 <Kira Silverman - 01/30/17 15:42> - Routine Psychiatric Exam Present: normal affect, normal thought process <Kira Silverman - 01/30/17 15: 42> - Additional findings Additional findings: Laboratory Results - last 48 hr 01/27/17 01/29/17 01/29/17 Unknown 03:50 03:50 WBC 6.1 RBC 3.08 L Hgb 10.4 L Hct 32.9 L MCV 106.8 H MCH 33.8 MCHC 31.6 RDW Std Deviation 54.5 H Plt Count 87 L MPV 11.0 Immature Gran % (Auto) Neut % (Auto) Lymph % (Auto) [place] % (Auto) Eos % (Auto) Baso % (Auto) Neut # Lymph # [place] # Eos # Baso # Abs Immat Gran (auto) APTT Turbidity < 20 Sodium 143 Potassium 4.3 Chloride 108 H Carbon Dioxide 27 Anion Gap 8 BUN 52.0 H* Creatinine 2.3 H D GFR Calculation 27 BUN/Creatinine Ratio 23 Glucose 99 Calculated Osmolality 289 H Calcium 8.8 Phosphorus Magnesium Ferritin 132 Icterus Index < 2 B-Natriuretic Peptide Albumin Vitamin B12 941 H Folate 19.8 Specimen Hemolysis < 15 01/29/17 01/30/17 01/30/17 03:50 04:41 04:41 WBC 5.4 RBC 3.05 L Hgb 10.3 L Hct 32.4 L MCV 106.2 H MCH 33.8 MCHC 31.8 RDW Std Deviation 54.0 H Plt Count 87 L MPV 11.1 Immature Gran % (Auto) 0.2 Neut % (Auto) 71.8 H Lymph % (Auto) 16.7 L [place] % (Auto) 8.5 Eos % (Auto) 2.6 Baso % (Auto) 0.2 Neut # 3.9 Lymph # 0.9 L [place] # 0.5 Eos # 0.1 Baso # 0.0 Abs Immat Gran (auto) 0.01 APTT 56.2 H Turbidity < 20 Sodium 140 Potassium 4.7 Chloride 107 Carbon Dioxide 25 Anion Gap 8 BUN 51.0 H* Creatinine 2.1 H D GFR Calculation 30 BUN/Creatinine Ratio 24 Glucose 88 Calculated Osmolality 282 H Calcium 8.7 Phosphorus 4.1 Magnesium 2.1 Ferritin Icterus Index < 2 B-Natriuretic Peptide 09885 H Albumin 3.3 L Vitamin B12 Folate Specimen Hemolysis 16 01/30/17 06:03 WBC RBC Hgb Hct MCV MCH MCHC RDW Std Deviation Plt Count MPV Immature Gran % (Auto) Neut % (Auto) Lymph % (Auto) [place] % (Auto) Eos % (Auto) Baso % (Auto) Neut # Lymph # [place] # Eos # Baso # Abs Immat Gran (auto) APTT 59.3 H Turbidity Sodium Potassium Chloride Carbon Dioxide Anion Gap BUN Creatinine GFR Calculation BUN/Creatinine Ratio Glucose Calculated Osmolality Calcium Phosphorus Magnesium Ferritin Icterus Index B-Natriuretic Peptide Albumin Vitamin B12 Folate Specimen Hemolysis Amiodarone HCl (Pacerone) 200 mg PO DAILY [facility] Last Admin: 01/30/17 08:38 Dose: 200 mg Aspirin (Ecotrin) 81 mg PO DAILY [facility] Last Admin: 01/30/17 08:38 Dose: 81 mg Calcium Carbonate (Tums Extra Strength) 750 mg PO PRN PRN PRN Reason: Dyspepsia Last Admin: 01/28/17 21:31 Dose: 750 mg Carvedilol (Coreg) 3.125 mg PO BIDWM [facility] Last Admin: 01/30/17 08:38 Dose: 3.125 mg Famotidine (Pepcid) 20 mg PO HS [facility] Last Admin: 01/29/17 20:13 Dose: 20 mg Ferrous Sulfate (Feosol) 324 mg PO WB [facility] Last Admin: 01/30/17 08:38 Dose: 324 mg Finasteride (Proscar) 5 mg PO DAILY [facility] Last Admin: 01/30/17 08:38 Dose: 5 mg Heparin Sodium (Porcine) (Heparin Sq) 5,000 units SQ Q8HR [facility] Nitroglycerin (Nitrostat) 0.4 mg SL Q5MIN3 PRN PRN Reason: Chest pain Simvastatin (Zocor) 40 mg PO HS [facility] Last Admin: 01/29/17 20:13 Dose: 40 mg Sodium Chloride (Iv Flush) 10 - 80 ml IVF PRN PRN PRN Reason: Flushing Sodium Chloride ([place] Nasal Moisturizing [place]) 1 spray EA NOSTRIL PRN PRN PRN Reason: Congestion Sodium Chloride (Normal Saline) 500 ml IV PRN PRN Last Admin: 01/30/17 13:51 Dose: 500 ml Tamsulosin HCl (Flomax) 0.4 mg PO HS [facility] Last Admin: 01/29/17 20:13 Dose: 0.4 mg Date of Exam: 01/30/17 Ordering Provider: Ran Tobar MD Type of Exam(s): NM pul vent and perfuse Reason for Exam(s): R/O PE EXAM: Ventilation-Perfusion Scintigraphy. DATE: 01/30/2017 8:00 AM Encounter: Initial INDICATIONS: Shortness of breath for four days, evaluate for pulmonary embolism COMPARISON: Chest radiographs 01/29/2017, pulmonary CT angiogram 06/12/2015 RADIOPHARMACEUTICAL: 6.5 mCi Xe-133 gas by inhalation and 43 mCi Tc-99m MAA IV. FINDINGS: The Xe-133 ventilation images demonstrate heterogeneous distribution of activity. The perfusion images also demonstrate heterogeneous distribution of activity bilaterally which appears matched to the ventilation images with no segmental ventilation/perfusion mismatches appreciated. IMPRESSION: Low probability for acute pulmonary embolism. <Kira Silverman - 01/30/17 15:07> Assessment and Plan - Assessment and Plan (1) Atherosclerotic heart disease of [place] coronary artery without angina pectoris Status: Acute (2) Elevated troponin Status: Resolved (3) CKD (chronic kidney disease) Status: Acute (4) Cardiomyopathy Status: Acute (5) Essential (primary) hypertension Status: Acute (6) Mixed hyperlipidemia Status: Acute (7) Dyspnea, unspecified Status: Acute (8) Ventricular premature complex Status: Chronic <Moncho Meehan - 02/03/17 13:58> (1) Dyspnea, unspecified Status: Acute Plan right heart cath tomorrow to determine volume status (2) Atherosclerotic heart disease of [place] coronary artery without angina pectoris Status: Acute (3) Elevated troponin Status: Resolved (4) CKD (chronic kidney disease) Status: Acute (5) Cardiomyopathy Status: Acute (6) Essential (primary) hypertension Status: Acute (7) Mixed hyperlipidemia Status: Acute <Kira Silverman - 02/01/17 09:03> - Attestation Attestation Narrative: 02/03/17 13:58 Recommendation After examining the patient I agree with the above assessment. I am involved in the formulation of the patient's plan of care. <Moncho Meehan - 02/03/17 13:58> Sepsis Assessment - Evaluation Sepsis screening result: No Definite Risk <Kira Silverman - 01/30/17 15:07> Hospital Course Summary Disclaimer: The visit summary below is not to be considered part of the above Progress Note. <Moncho Meehan - 02/03/17 13:58> The visit summary below is not to be considered part of the above Progress Note. <Kira Silverman - 01/30/17 15:07> Hospital Course: 01/29/17-continues to have frequent PVCs, generalized weakness, and nocturnal epigastric discomfort. Stable to transfer out of ICU to complete evaluation for near syncope. Continue heparin drip pending VQ scan in the morning (d-dimer significantly elevated on admission). Repeat chest x-ray today-initial films suggested volume overload/CHF although exam was not compatible with same. Renal function raised question of acute kidney injury on admission and renal function has improved slowly during hospitalization without IV fluids (although the patient's been on IV amiodarone and IV heparin). Fluid balance is essentially even from admission. Needs PT/OT evaluations. Echocardiogram pending; check BNP with a.m. labs (patient reports diuretic discontinued recently). Supplemental history provided by nursing, telemetry strips reviewed by myself; chest x-ray ordered and prior x-ray reviewed by myself. EKG is reviewed by myself. Laboratory data reviewed and compared to past data. 01/30/17 18:03 Progressively worsening dyspnea: Unclear etiology at this point, will need further work-up EF 40% on echo, was 55% on echo at the end of December VQ Scan negative for PE, Heparin switched to DVT prophylaxis He will likely need a coronary evaluation, but due to DUSTY, can be delayed Will need PFTs once respiratory status improves. Plan right heart cath tomorrow to determine volume status. <Kira Silverman - 02/01/17 09:04> Addendum entered and electronically signed by Kira Silverman APRN 02/01/17 09: 14: Ventricular premature depolarization show be included in this patient's active problem list. He was started on Flecainide 50mg po BID for antiarrhythmic therapy with EKG to follow up in the morning.
--- NOTE | 2017-01-30 15:53 | Ultrasound Report ---
EXAM: US renal BI DATE: 01/30/2017 12:00 AM ENCOUNTER: Initial INDICATION: Evaluate for Hydronephrosis COMPARISON: None available. TECHNIQUE: Real-time hagan scale ultrasound images of the kidneys and urinary bladder were obtained. FINDINGS: The right kidney measures 10.9 x 4.7 x 4.0 cm. There is no right sided mass, calculus or hydronephrosis. The left kidney measures 8.9 x 4.1 x 4.3 cm. There is no left sided mass, calculus or hydronephrosis. Simple/benign appearing bilateral cysts noted. Normal bilateral ureteral jets are present. The bladder appears grossly normal. IMPRESSION: 1. No hydronephrosis appreciated bilaterally. 2. Benign/simple appearing bilateral cysts. .
[2017-01-30] MEDS: FLECAINIDE 50 MG TABLET PO SCH ×2 (16:27→20:46)
[2017-01-30] MEDS: HEPARIN SUB-Q 5,000 UNITS/0.5 ML INJECTION SQ SCH (17:20)
[2017-01-30] MEDS: TAMSULOSIN 0.4 MG CAPSULE PO SCH (20:46)
[2017-01-30] MEDS: FAMOTIDINE 20 MG TABLET PO SCH (20:46)
[2017-01-30] MEDS: SIMVASTATIN 40 MG TABLET PO SCH (20:46)
[2017-01-30] MEDS: CALCIUM CARBONATE Chewable 750mg TABLET PO PRN (22:41)
[2017-01-31] MEDS: HEPARIN SUB-Q 5,000 UNITS/0.5 ML INJECTION SQ SCH ×3 (00:36→18:20)
[2017-01-31] MEDS ORDERED: LIDOCAINE 1% (10mg/ml) 30ml SDV INJ ONE (07:22)
[2017-01-31] MEDS ORDERED: HEPARIN 1,000 UNITS/500 ML PREMIX (*CVL ONLY*) IV ONE (07:22)
--- NOTE | 2017-01-31 08:23 | Echocardiogram ---
DATE OF PROCEDURE January 30, [address] Ran Tobar This is a two-dimensional echo with spectral Doppler, color-flow and M-mode. It was obtained in a patient with dyspnea. Left atrium is dilated. Left ventricle end-diastolic dimension is normal. Left ventricle wall thickness is normal. LV systolic function is reduced with global hypokinesia with ejection fraction of about 30-35%. Right atrium is dilated. Right ventricle is normal. Aortic root dimension is mildly increased. Mitral valve annulus shows calcification. Mitral valve leaflets are sclerotic with no stenosis. Moderate mitral regurgitation is present. Aortic valve appears to be a bioprosthetic valve which is well seated. Transaortic velocities are 2.66 m/sec with a peak gradient of 28 and mean gradient of 16. Aortic valve area is calculated at 0.9 cm2. There is no perivalvular insufficiency. Tricuspid valve shows mild tricuspid regurgitation with moderate pulmonary hypertension with estimated pulmonary artery systolic pressure of 45-50. Pulmonary valve shows mild pulmonary insufficiency. There is no pericardial effusion. Flow is noted across the interatrial septum suggestive of atrioseptal defect versus patent foramen ovale. IMPRESSION 1. Atrioseptal defect versus patent foramen ovale. 2. Biatrial dilation. 3. Global hypokinesia with ejection fraction of about 30-35%. 4. Aortic root dilation. 5. Mitral annulus calcification with mitral sclerosis. 6. Bioprosthetic aortic valve which is well seated with no perivalvular leak. 7. Mild tricuspid regurgitation with estimated pulmonary artery systolic pressure of 45-50. 8. Mild pulmonary insufficiency. MTDD
[2017-01-31] MEDS ORDERED: BISACODYL 10 MG SUPPOSITORY RECTALLY PRN (09:14)
[2017-01-31] MEDS ORDERED: ONDANSETRON 4 MG/2 ML INJECTION IVP PRN (09:14)
[2017-01-31] MEDS ORDERED: METOCLOPRAMIDE 10mg/2ml INJECTION IVP PRN (09:14)
[2017-01-31] MEDS ORDERED: MAG-AL + SIM ORAL LIQUID 30ml PO PRN (09:14)
[2017-01-31] MEDS ORDERED: Bisacodyl EC TAB 5 MG TABLET PO PRN (09:14)
[2017-01-31] MEDS ORDERED: HYDROCODONE/APAP 7.5 MG/325 MG TABLET PO PRN (09:14)
[2017-01-31] MEDS ORDERED: LORazepam 0.5 MG TABLET PO PRN (09:14)
[2017-01-31] MEDS ORDERED: PROMETHAZINE 25 MG INJECTION IVP PRN (09:14)
[2017-01-31] MEDS ORDERED: MORPHINE SULFATE 4 MG SYRINGE IVP PRN ×2 (09:14)
[2017-01-31] MEDS ORDERED: ACETAMINOPHEN 325 MG TABLET PO PRN (09:14)
[2017-01-31] MEDS ORDERED: ATROPINE 1 MG/ML INJECTION IVP PRN (09:14)
[2017-01-31] MEDS ORDERED: NITROGLYCERIN 0.4 MG SUBLINGUAL TABLET SL PRN (09:14)
[2017-01-31] MEDS: AMIODARONE 200 MG TABLET PO SCH (12:38)
[2017-01-31] MEDS: ASPIRIN *EC* 81 MG TABLET PO SCH (12:38)
[2017-01-31] MEDS: MEXILETINE 150 MG CAPSULE PO SCH ×3 (12:38→18:21)
[2017-01-31] MEDS: FERROUS SULFATE 324 MG TABLET PO SCH (12:38)
[2017-01-31] MEDS: CARVEDILOL 3.125 MG TABLET PO SCH ×2 (12:38→18:21)
[2017-01-31] MEDS: SALINE FLUSH 10ml SYRINGE IVF PRN ×2 (12:39→18:22)
[2017-01-31] MEDS: FINASTERIDE 5 MG TABLET PO SCH (12:39)
--- NOTE | 2017-01-31 13:34 | Cardiac Catheterization Report ---
DATE OF PROCEDURE January 31, [address] Ran Tobar The patient is a pleasant 89-year-old gentleman with history of coronary artery disease and aortic stenosis status post TAVR who was admitted with significant shortness of breath and renal insufficiency and we had a hard time determining his volume status with renal insufficiency and congestive heart failure symptoms and therefore he was referred for further evaluation of the volume status by right heart catheterization for further management with diuresis versus IV fluids. Informed consent was obtained after explaining the procedure and the potential risks to the patient who agreed to proceed with the procedure. PROCEDURE 1. Right heart catheterization. TECHNIQUE He was prepped and draped in the usual sterile techniques. Conscious sedation was performed using Versed and fentanyl. 1% lidocaine was used for local anesthesia. Venous access was obtained into the right femoral vein with placement of a 7-Tamazight venous sheath. HEMODYNAMIC DATA Hemodynamic data were obtained after advancing a [place]-Abhinav catheter through the venous system and obtaining samples and measuring the pressures. Right atrial mean pressure of 16, right ventricular pressure was 57/12 with an EDP of 18, pulmonary artery pressure was 50/25 with a mean of 34, and pulmonary capillary wedge pressure of about 39. Aortic saturation was 97% and mixed venous saturation obtained from pulmonary artery position was 54%. The patient tolerated the procedure well with no complications. IMPRESSION 1. Moderate elevation of right heart pressures with elevated pulmonary capillary wedge pressure. PLAN Will increase diuresis and continue medical management. MTDD
--- NOTE | 2017-01-31 19:15 | Progress Note ---
Subjective: Pt is feeling about the same. Had R sided heart cath today - was found to have elevated pressures - will be managed medically. Still with frequent ectopy. he states he does not have KYLAH and does not use a CPAP at home. Objective Vital signs: Temperature 95.9 F L 01/31/17 15:34 Pulse Rate 73 01/31/17 16:00 Respiratory Rate 20 01/31/17 15:34 Blood Pressure 115/60 01/31/17 15:34 Pulse Oximetry 92 01/31/17 15:34 Rhythm: Premature Ventricular Contractions Cardiac Ectopy: Frequent PVC's Height/Weight/BMI: Height 5 ft 10 in Weight 79 kg Body Mass Index 20.8 - Constitutional Present: no acute distress, well nourished - Routine HEENT Exam Head: Present: normocephalic, atraumatic Eye: Present: EOMI, PERRL - Routine Respiratory Exam Present: CTA bilaterally - Routine Cardiovascular Exam Present: irregular rhythm - Routine Abdominal Exam Present: soft, non distended, non tender - Routine Extremities Exam Absent: cyanosis, clubbing - Routine Neurological Exam Present: alert, oriented X3, CN II-XII intact - Routine Psychiatric Exam Present: normal affect, cooperative, good insight, good judgment Results - Labs CBC & Chem 7: 01/31/17 04:25 01/31/17 04:25 - ABG Interpretation ABG results: 01/30/17 01/31/17 17:10 08:46 ABG pH 7.430 ABG pCO2 39 ABG pO2 68 L ABG HCO3 26 ABG Total CO2 27.1 H ABG O2 Saturation 94.0 L ABG Base Excess 1.5 VBG pH 7.363 VBG pCO2 41.4 VBG pO2 30 L VBG HCO3 24 VBG Total CO2 25 VBG O2 Saturation 54.0 VBG Base Excess -2.0 Assessment and Plan (1) Elevated troponin Current visit: Yes Status: Resolved 01/28/17 10:33 Could be due to CHF, as it remains "Flat" or due to CKD. (2) Thrombocytopenia Current visit: Yes Status: Acute (3) Near syncope Current visit: Yes Status: Acute DVT Prophylaxis: SCD's GI Prophylaxis: other Assessment and Plan: SUMMARY - This is an 89 YO male that had a fall on the day of admission, then was brought to the ED by the paramedics. Pt had marked ectopy (Frequent PVC's) at the ED. He also presented with DUSTY, probably with dehydration and elevated TnI. He was admitted to the ICU and placed on Amiodarone drip, with improvement of his ectopy. His CXR on admission suggested volume overload. He continues to have episodes of NSVT - and ectopy. Had a R sided heart cath - that showed elevated pressures. 1) CARDIOVASCULAR ASSESSMENT - A) CAD - S/P CABG WITH MILD ELEVATION OF THE TNI (Type I vs Type II). His TnI is flat suggesting a Type II elevation (CHF +/- CKD) - Continues to have marked ectopy - Nitrates, BB rate control. - ASA B) S/P AVR (TAVR Dec 2015) C) h/o sudden cardiac (Was successfully resucitated) with ongoing episodes of NSVT. Echocardiogram was done today, results pending. - had cardiac cath today - elevated R sided pressures. D) HTN - Well controlled. 2) DUSTY/CKD, stage 3 . FENA on admission was 1.6%, pt was on Lasix. Will check a renal U/S to R/O obstruction component. - BUN/Cr = 51/2.1 3) HYPERNATREMIA, RESOLVED (NA 140 TODAY) 4) HEMATOLOGICAL ASSESMENT A) ANEMIA, WITH MACROCYTOSIS - B12 AND FOLATE NORMAL. B) Thrombocytopenia, stable. Trend not consistent with HIT - Heparin stopped V/Q scan normal. C) Leukocytosis; resolved. 5) EPIGASTRIC DISCOMFORT - probable indigestion, Pepcid initiated daily at bedtime; Tums when necessary CODE STATUS - FULL Prevention: - Pepcid 20 mg daily at bedtime - Change to [facility] Sepsis Assessment - Evaluation Sepsis screening result: No Definite Risk Hospital Course Summary Disclaimer: The visit summary below is not to be considered part of the above Progress Note. Hospital Course: 01/29/17-continues to have frequent PVCs, generalized weakness, and nocturnal epigastric discomfort. Stable to transfer out of ICU to complete evaluation for near syncope. Continue heparin drip pending VQ scan in the morning (d-dimer significantly elevated on admission). Repeat chest x-ray today-initial films suggested volume overload/CHF although exam was not compatible with same. Renal function raised question of acute kidney injury on admission and renal function has improved slowly during hospitalization without IV fluids (although the patient's been on IV amiodarone and IV heparin). Fluid balance is essentially even from admission. Needs PT/OT evaluations. Echocardiogram pending; check BNP with a.m. labs (patient reports diuretic discontinued recently). Supplemental history provided by nursing, telemetry strips reviewed by myself; chest x-ray ordered and prior x-ray reviewed by myself. EKG is reviewed by myself. Laboratory data reviewed and compared to past data. 01/30/17 18:03 Progressively worsening dyspnea: Unclear etiology at this point, will need further work-up EF 40% on echo, was 55% on echo at the end of December VQ Scan negative for PE, Heparin switched to DVT prophylaxis He will likely need a coronary evaluation, but due to DUSTY, can be delayed Will need PFTs once respiratory status improves. Plan right heart cath tomorrow.
[2017-01-31] MEDS: SIMVASTATIN 40 MG TABLET PO SCH (20:46)
[2017-01-31] MEDS: FAMOTIDINE 20 MG TABLET PO SCH (20:47)
[2017-01-31] MEDS: TAMSULOSIN 0.4 MG CAPSULE PO SCH (20:47)
[2017-02-01] MEDS: HEPARIN SUB-Q 5,000 UNITS/0.5 ML INJECTION SQ SCH ×3 (01:32→17:59)
[2017-02-01] MEDS: AMIODARONE 200 MG TABLET PO SCH (08:51)
[2017-02-01] MEDS: FINASTERIDE 5 MG TABLET PO SCH (08:51)
[2017-02-01] MEDS: ASPIRIN *EC* 81 MG TABLET PO SCH (08:52)
[2017-02-01] MEDS: CARVEDILOL 3.125 MG TABLET PO SCH ×2 (08:52→18:00)
[2017-02-01] MEDS: MEXILETINE 150 MG CAPSULE PO SCH ×3 (08:52→17:59)
[2017-02-01] MEDS: FERROUS SULFATE 324 MG TABLET PO SCH (08:52)
--- NOTE | 2017-02-01 09:08 | Cardiology Progress Note ---
Subjective Principal diagnosis: CAD, s/p CABG, PCI; Severe , s/p TAVR; Ischemic Cardiomyopathy (improved) <Kira Silverman 02/01/17 09:14> Interval history: Wale is seen in follow up for arrhythmia and CHF. He is sitting up in the recliner, when asked if his breathing is improved he states he is not sure. He denies chest pain or pressure, palpitations, dizziness or lightheadedness. <Kira Silverman 02/01/17 09:14> Exam Vital signs: Temperature 96.6 F L 02/03/17 07:47 Pulse Rate 61 02/03/17 07:47 Respiratory Rate 17 02/03/17 07:47 Blood Pressure 122/65 02/03/17 07:47 Pulse Oximetry 93 02/03/17 07:47 <Moncho Meehan - 02/03/17 14:13> Temperature 95.9 F L 02/01/17 08:38 Pulse Rate 60 02/01/17 08:38 Respiratory Rate 18 02/01/17 08:38 Blood Pressure 118/67 02/01/17 08:38 Pulse Oximetry 96 02/01/17 08:38 <Kira Silverman 02/01/17 09:14> - Constitutional no acute distress, well nourished, well developed, cooperative <Andra,Kira Michel 02/01/17 09:14> - Routine HEENT Exam Head: Present: normocephalic <AndraKira Michel 02/01/17 09:14> ENT: Present: mucous membranes moist <Andra,Kira Michel 02/01/17 09:14> - Routine Neck Exam Absent: JVD, carotid bruit <AndraKira Michel 02/01/17 09:14> - Routine Chest/Breast/Axilla Exam Chest wall: Absent: tenderness <Andra,iKra Michel 02/01/17 09:14> - Routine Respiratory Exam Present: CTA bilaterally. Absent: rales, wheezes <AndraKira Michel 02/01/17 09:14> - Routine Cardiovascular Exam Present: murmur (III/), irregular rhythm. Absent: JVD <AndraKira byers Anand 09:14> - Routine Abdominal Exam Present: soft, normoactive bowel sounds <Kira Silverman - 02/01/17 09:14> - Routine Extremities Exam Present: no edema <Kira Silverman - 02/01/17 09:14> - Routine Skin Exam Present: intact, dry, warm <Kira Silverman - 02/01/17 09:14> - Routine Neurological Exam Present: alert, oriented X3 <Kira Silverman - 02/01/17 09:14> - Routine Psychiatric Exam Present: normal affect, normal thought process <Kira Silverman - 02/01/17 09: 14> - Additional findings Additional findings: Laboratory Results - last 48 hr 01/30/17 01/31/17 01/31/17 17:10 04:25 04:25 WBC 4.7 RBC 2.92 L Hgb 9.8 L Hct 31.3 L MCV 107.2 H MCH 33.6 MCHC 31.3 RDW Std Deviation 54.4 H Plt Count 85 L MPV 11.4 Immature Gran % (Auto) 0.2 Neut % (Auto) 76.0 H Lymph % (Auto) 13.4 L [place] % (Auto) 9.1 H Eos % (Auto) 1.1 Baso % (Auto) 0.2 Neut # 3.6 Lymph # 0.6 L [place] # 0.4 Eos # 0.1 Baso # 0.0 Abs Immat Gran (auto) 0.01 ABG pH 7.430 ABG pCO2 39 ABG pO2 68 L ABG HCO3 26 ABG Total CO2 27.1 H ABG O2 Saturation 94.0 L ABG Base Excess 1.5 VBG pH VBG pCO2 VBG pO2 VBG HCO3 VBG Total CO2 VBG O2 Saturation VBG Base Excess O2 Delivery Method Room air Turbidity < 20 Sodium 140 Potassium 5.5 H Chloride 106 Carbon Dioxide 27 Anion Gap 7 BUN 61.0 H* Creatinine 2.3 H D GFR Calculation 27 BUN/Creatinine Ratio 27 H Glucose 96 Calculated Osmolality 286 H Calcium 8.8 Magnesium 2.2 Icterus Index < 2 Specimen Hemolysis < 15 01/31/17 02/01/17 02/01/17 08:46 05:25 05:25 WBC 4.9 RBC 2.98 L Hgb 10.2 L Hct 31.8 L MCV 106.7 H MCH 34.2 H MCHC 32.1 RDW Std Deviation 54.5 H Plt Count 85 L MPV 11.3 Immature Gran % (Auto) 0.2 Neut % (Auto) 75.5 H Lymph % (Auto) 13.0 L [place] % (Auto) 10.3 H Eos % (Auto) 0.8 Baso % (Auto) 0.2 Neut # 3.7 Lymph # 0.6 L [place] # 0.5 Eos # 0.0 Baso # 0.0 Abs Immat Gran (auto) 0.01 ABG pH ABG pCO2 ABG pO2 ABG HCO3 ABG Total CO2 ABG O2 Saturation ABG Base Excess VBG pH 7.363 VBG pCO2 41.4 VBG pO2 30 L VBG HCO3 24 VBG Total CO2 25 VBG O2 Saturation 54.0 VBG Base Excess -2.0 O2 Delivery Method Room air Turbidity < 20 Sodium 140 Potassium 4.4 D Chloride 103 Carbon Dioxide 28 Anion Gap 9 BUN 58.0 H* Creatinine 2.4 H GFR Calculation 26 BUN/Creatinine Ratio 24 Glucose 99 Calculated Osmolality 285 H Calcium 8.8 Magnesium Icterus Index < 2 Specimen Hemolysis < 15 Acetaminophen (Tylenol) 325 - 650 mg PO Q5H PRN PRN Reason: Pain Acetaminophen/Hydrocodone Bitart ([place] 7.5/325) 1 - 2 tab PO Q5H PRN PRN Reason: Pain Al Hydroxide/Mg Hydroxide (Maalox Plus) 30 ml PO Q3H PRN PRN Reason: Indigestion Amiodarone HCl ([place]) 200 mg PO DAILY [facility] Last Admin: 02/01/17 08:51 Dose: 200 mg Aspirin (Ecotrin) 81 mg PO DAILY [facility] Last Admin: 02/01/17 08:52 Dose: 81 mg Atropine Sulfate (Atropine) 0.5 mg IVP Q5M PRN PRN Reason: Bradycardia Bisacodyl (Dulcolax) 5 - 10 mg PO DAILY PRN PRN Reason: Constipation Bisacodyl (Dulcolax) 10 mg RECTALLY DAILY PRN PRN Reason: Constipation Bumetanide (Bumex Inj) 2 mg IVP Q8H [facility] Last Admin: 02/01/17 08:52 Dose: 2 mg Calcium Carbonate (Tums Extra Strength) 750 mg PO PRN PRN PRN Reason: Dyspepsia Last Admin: 01/30/17 22:41 Dose: 750 mg Carvedilol (Coreg) 3.125 mg PO BIDWM [facility] Last Admin: 02/01/17 08:52 Dose: 3.125 mg Famotidine (Pepcid) 20 mg PO HS [facility] Last Admin: 01/31/17 20:47 Dose: 20 mg Ferrous Sulfate (Feosol) 324 mg PO WB [facility] Last Admin: 02/01/17 08:52 Dose: 324 mg Finasteride (Proscar) 5 mg PO DAILY [facility] Last Admin: 02/01/17 08:51 Dose: 5 mg Heparin Sodium (Porcine) (Heparin Sq) 5,000 units SQ Q8HR [facility] Last Admin: 02/01/17 08:52 Dose: 5,000 units Lorazepam (Ativan) 0.5 - 1 mg PO Q4H PRN PRN Reason: Anxiety Last Admin: 01/31/17 20:46 Dose: 0.5 mg Lorazepam (Ativan Inj) 0.5 - 1 mg IVP Q4H PRN PRN Reason: Anxiety Magnesium Hydroxide (Mom) 30 ml PO DAILY PRN PRN Reason: Constipation Metoclopramide HCl (Reglan) 5 - 10 mg IVP Q6H PRN PRN Reason: Nausea &/or vomiting Mexiletine HCl (Mexitil) 150 mg PO TIDWM [facility] Last Admin: 02/01/17 08:52 Dose: 150 mg Morphine Sulfate (Morphine Sulfate Inj) 2 - 4 mg IVP Q2H PRN PRN Reason: Pain Stop: 02/01/17 09:13 Morphine Sulfate (Morphine Sulfate Inj) 2 - 4 mg IVP Q5M PRN PRN Reason: Angina Nitroglycerin (Nitrostat) 0.4 mg SL Q5MIN3 PRN PRN Reason: Chest pain Nitroglycerin (Nitrostat) 0.4 mg SL Q5MIN3 PRN PRN Reason: Angina Ondansetron HCl (Zofran) 4 mg IVP Q6H PRN PRN Reason: Nausea &/or vomiting Promethazine HCl (Phenergan Inj) 12.5 - 25 mg IVP Q6H PRN PRN Reason: Nausea &/or vomiting Simvastatin (Zocor) 40 mg PO [facility] Last Admin: 01/31/17 20:46 Dose: 40 mg Sodium Chloride (Iv Flush) 10 - 80 ml IVF PRN PRN PRN Reason: Flushing Last Admin: 01/31/17 18:22 Dose: 10 ml Sodium Chloride (Deep Sea Nasal Moisturizing [place]) 1 spray EA NOSTRIL PRN PRN PRN Reason: Congestion Sodium Chloride (Normal Saline) 500 ml IV PRN PRN Last Admin: 01/30/17 13:51 Dose: 500 ml Tamsulosin HCl (Flomax) 0.4 mg PO HS [facility] Last Admin: 01/31/17 20:47 Dose: 0.4 mg Date of Exam: 01/31/17 Type of Exam(s): CA heart cath RT DATE OF PROCEDURE January 31, [address] Ran Tobar The patient is a pleasant 89-year-old gentleman with history of coronary artery disease and aortic stenosis status post TAVR who was admitted with significant shortness of breath and renal insufficiency and we had a hard time determining his volume status with renal insufficiency and congestive heart failure symptoms and therefore he was referred for further evaluation of the volume status by right heart catheterization for further management with diuresis versus IV fluids. Informed consent was obtained after explaining the procedure and the potential risks to the patient who agreed to proceed with the procedure. PROCEDURE 1. Right heart catheterization. TECHNIQUE He was prepped and draped in the usual sterile techniques. Conscious sedation was performed using Versed and fentanyl. 1% lidocaine was used for local anesthesia. Venous access was obtained into the right femoral vein with placement of a 7-[place]ar[place] venous sheath. HEMODYNAMIC DATA Hemodynamic data were obtained after advancing a [place]-Abhinav catheter through the venous system and obtaining samples and measuring the pressures. Right atrial mean pressure of 16, right ventricular pressure was 57/12 with an EDP of 18, pulmonary artery pressure was 50/25 with a mean of 34, and pulmonary capillary wedge pressure of about 39. Aortic saturation was 97% and mixed venous saturation obtained from pulmonary artery position was 54%. The patient tolerated the procedure well with no complications. IMPRESSION 1. Moderate elevation of right heart pressures with elevated pulmonary capillary wedge pressure. PLAN Will increase diuresis and continue medical management. <Kira Silverman - 02/01/17 09:14> Assessment and Plan - Assessment and Plan (1) Atherosclerotic heart disease of [place] coronary artery without angina pectoris Status: Acute (2) Elevated troponin Status: Resolved (3) CKD (chronic kidney disease) Status: Acute (4) Cardiomyopathy Status: Acute (5) Essential (primary) hypertension Status: Acute (6) Mixed hyperlipidemia Status: Acute (7) Dyspnea, unspecified Status: Acute (8) Ventricular premature complex Status: Chronic <Moncho Meehan - 02/03/17 14:13> (1) Dyspnea, unspecified Status: Acute Continue diuresis with Bumex 2mg PO TID. Monitor electrolytes and renal. Encouraged IRU or NH for discharge due to weakness/ deconditioning. (2) Atherosclerotic heart disease of [place] coronary artery without angina pectoris Status: Acute (3) Elevated troponin Status: Resolved (4) CKD (chronic kidney disease) Status: Acute (5) Cardiomyopathy Status: Acute (6) Essential (primary) hypertension Status: Acute (7) Mixed hyperlipidemia Status: Acute (8) Ventricular premature complex Status: Chronic Continue Mexiletine 150mg po TID as ordered yesterday. Repeat EKG in the morning. <Kira Silverman - 02/02/17 16:56> - Attestation Attestation Narrative: 02/03/17 14:13 Recommendation After examining the patient I agree with the above assessment. I am involved in the formulation of the patient's plan of care. <Moncho Meehan - 02/03/17 14:13> Sepsis Assessment - Evaluation Sepsis screening result: No Definite Risk <Kira Silverman - 02/01/17 09:14> Hospital Course Summary Disclaimer: The visit summary below is not to be considered part of the above Progress Note. <Moncho Meehan - 02/03/17 14:13> The visit summary below is not to be considered part of the above Progress Note. <Kira Silverman - 02/01/17 09:14> Hospital Course: 01/29/17-continues to have frequent PVCs, generalized weakness, and nocturnal epigastric discomfort. Stable to transfer out of ICU to complete evaluation for near syncope. Continue heparin drip pending VQ scan in the morning (d-dimer significantly elevated on admission). Repeat chest x-ray today-initial films suggested volume overload/CHF although exam was not compatible with same. Renal function raised question of acute kidney injury on admission and renal function has improved slowly during hospitalization without IV fluids (although the patient's been on IV amiodarone and IV heparin). Fluid balance is essentially even from admission. Needs PT/OT evaluations. Echocardiogram pending; check BNP with a.m. labs (patient reports diuretic discontinued recently). Supplemental history provided by nursing, telemetry strips reviewed by myself; chest x-ray ordered and prior x-ray reviewed by myself. EKG is reviewed by myself. Laboratory data reviewed and compared to past data. 01/30/17 18:03 Progressively worsening dyspnea: Unclear etiology at this point, will need further work-up EF 40% on echo, was 55% on echo at the end of December VQ Scan negative for PE, Heparin switched to DVT prophylaxis He will likely need a coronary evaluation, but due to DUSTY, can be delayed Will need PFTs once respiratory status improves. Plan right heart cath tomorrow to determine volume status. 01/31/17 Right heart cath, see report. Bumex 2mg IV Q8H. Monitor electrolytes and renal. Mexiletine 150mg po TID for frequent PVCs. Repeat EKG in the morning. 02/01/17 09:12 Continue diuresis with Bumex 2mg IV Q8H as started yesterday. Monitor electrolytes and renal. Continue Mexiletine 150mg po TID as ordered yesterday. Repeat EKG in the morning. Consult PT/OT and IRU screening for discharge needs. 02/02/17 16:58 Continue diuresis with Bumex 2mg PO TID. Monitor electrolytes and renal. Encouraged IRU or NH for discharge due to weakness/ deconditioning. <Kira Silverman - 02/02/17 16:58>
--- NOTE | 2017-02-01 17:47 | Progress Note ---
Subjective: Pt states he is not feeling well today, he is very weak. Wants to have his diet advanced. Otherwise complains of being weak, and having difficulty walking today. Objective Vital signs: Temperature 95.4 F L 02/01/17 15:07 Pulse Rate 53 L 02/01/17 16:49 Respiratory Rate 18 02/01/17 15:07 Blood Pressure 106/64 02/01/17 15:07 Pulse Oximetry 99 02/01/17 15:07 Rhythm: Premature Ventricular Contractions Cardiac Ectopy: Frequent PVC's Height/Weight/BMI: Height 5 ft 10 in Weight 78 kg Body Mass Index 20.8 - Constitutional Present: mild distress, somnolent - Routine HEENT Exam Head: Present: normocephalic, atraumatic Eye: Present: EOMI, PERRL - Routine Respiratory Exam Present: CTA bilaterally - Routine Cardiovascular Exam Present: RRR, S1 - Routine Abdominal Exam Present: soft - Routine Extremities Exam Absent: cyanosis, clubbing, edema - Routine Neurological Exam Present: alert, oriented X3, CN II-XII intact - Routine Psychiatric Exam Present: normal affect, cooperative, good insight, good judgment Results - Labs CBC & Chem 7: 02/01/17 05:25 02/01/17 05:25 - ABG Interpretation ABG results: 01/30/17 01/31/17 17:10 08:46 ABG pH 7.430 ABG pCO2 39 ABG pO2 68 L ABG HCO3 26 ABG Total CO2 27.1 H ABG O2 Saturation 94.0 L ABG Base Excess 1.5 VBG pH 7.363 VBG pCO2 41.4 VBG pO2 30 L VBG HCO3 24 VBG Total CO2 25 VBG O2 Saturation 54.0 VBG Base Excess -2.0 Assessment and Plan (1) Elevated troponin Current visit: Yes Status: Resolved 01/28/17 10:33 Could be due to CHF, as it remains "Flat" or due to CKD. (2) Thrombocytopenia Current visit: Yes Status: Acute (3) Near syncope Current visit: Yes Status: Acute DVT Prophylaxis: SCD's GI Prophylaxis: other Resuscitation Status: Full Code Assessment and Plan: SUMMARY - This is an 89 YO male that had a fall on the day of admission, then was brought to the ED by the paramedics. Pt had marked ectopy (Frequent PVC's) at the ED. He also presented with DUSTY, probably with dehydration and elevated TnI. He was admitted to the ICU and placed on Amiodarone drip, with improvement of his ectopy. His CXR on admission suggested volume overload. He continues to have episodes of NSVT - and ectopy. Had a R sided heart cath - that showed elevated pressures. Pt had a nocturnal saturation study on 01/31 that did not suggest presence of KYLAH. On 02/01 he started complianing of profound weakness. 1) CARDIOVASCULAR ASSESSMENT - A) CAD - S/P CABG WITH MILD ELEVATION OF THE TNI (Type I vs Type II). His TnI is flat suggesting a Type II elevation (CHF +/- CKD) - Per Dr Meehan, pt had Mexiletine added - Nitrates, BB rate control. - ASA B) S/P AVR (TAVR Dec 2015) C) h/o sudden cardiac (Was successfully resucitated) with ongoing episodes of NSVT. Echocardiogram was done today, results pending. - had cardiac cath (01/30) - elevated R sided pressures. D) HTN - Well controlled. 2) DUSTY/CKD, stage 3 . FENA on admission was 1.6%, pt was on Lasix. Will check a renal U/S to R/O obstruction component. - BUN/Cr = 51/2.1 (9.18) now 58/2.4 on high dose Diuretics. 3) HYPERNATREMIA, RESOLVED 4) HEMATOLOGICAL ASSESMENT A) ANEMIA, WITH MACROCYTOSIS - B12 AND FOLATE NORMAL. B) Thrombocytopenia, stable. Trend not consistent with HIT (Had acute drop after heparin was strarted) Heparin stopped V/Q scan normal. C) Leukocytosis; resolved. 5) EPIGASTRIC DISCOMFORT - probable indigestion, Pepcid initiated daily at bedtime; Tums when necessary CODE STATUS - FULL Prevention: - Pepcid 20 mg daily at bedtime - SCD's Hospital Course Summary Disclaimer: The visit summary below is not to be considered part of the above Progress Note. Hospital Course: 01/29/17-continues to have frequent PVCs, generalized weakness, and nocturnal epigastric discomfort. Stable to transfer out of ICU to complete evaluation for near syncope. Continue heparin drip pending VQ scan in the morning (d-dimer significantly elevated on admission). Repeat chest x-ray today-initial films suggested volume overload/CHF although exam was not compatible with same. Renal function raised question of acute kidney injury on admission and renal function has improved slowly during hospitalization without IV fluids (although the patient's been on IV amiodarone and IV heparin). Fluid balance is essentially even from admission. Needs PT/OT evaluations. Echocardiogram pending; check BNP with a.m. labs (patient reports diuretic discontinued recently). Supplemental history provided by nursing, telemetry strips reviewed by myself; chest x-ray ordered and prior x-ray reviewed by myself. EKG is reviewed by myself. Laboratory data reviewed and compared to past data. 01/30/17 18:03 Progressively worsening dyspnea: Unclear etiology at this point, will need further work-up EF 40% on echo, was 55% on echo at the end of December VQ Scan negative for PE, Heparin switched to DVT prophylaxis He will likely need a coronary evaluation, but due to DUSTY, can be delayed Will need PFTs once respiratory status improves. Plan right heart cath tomorrow to determine volume status. 01/31/17 Right heart cath, see report. Bumex 2mg IV Q8H. Monitor electrolytes and renal. Mexiletine 150mg po TID for frequent PVCs. Repeat EKG in the morning. 02/01/17 09:12 Continue diuresis with Bumex 2mg IV Q8H as started yesterday. Monitor electrolytes and renal. Continue Mexiletine 150mg po TID as ordered yesterday. Repeat EKG in the morning. Consult PT/OT and IRU screening for discharge needs.
[2017-02-01] MEDS: FAMOTIDINE 20 MG TABLET PO SCH (21:43)
[2017-02-01] MEDS: SIMVASTATIN 40 MG TABLET PO SCH (21:43)
[2017-02-01] MEDS: SALINE FLUSH 10ml SYRINGE IVF PRN (21:43)
[2017-02-01] MEDS: TAMSULOSIN 0.4 MG CAPSULE PO SCH (21:43)
[2017-02-02] MEDS: HEPARIN SUB-Q 5,000 UNITS/0.5 ML INJECTION SQ SCH ×3 (01:41→17:27)
[2017-02-02] MEDS: SALINE FLUSH 10ml SYRINGE IVF PRN ×3 (01:43→21:45)
[2017-02-02] MEDS: CARVEDILOL 3.125 MG TABLET PO SCH ×2 (10:09→17:26)
[2017-02-02] MEDS: FERROUS SULFATE 324 MG TABLET PO SCH (10:09)
[2017-02-02] MEDS: AMIODARONE 200 MG TABLET PO SCH (10:10)
[2017-02-02] MEDS: ASPIRIN *EC* 81 MG TABLET PO SCH (10:10)
[2017-02-02] MEDS: MEXILETINE 150 MG CAPSULE PO SCH ×3 (10:11→17:28)
[2017-02-02] MEDS: FINASTERIDE 5 MG TABLET PO SCH (10:12)
--- NOTE | 2017-02-02 18:11 | Progress Note ---
Subjective: F/U: Cardiac dysthymia, DUSTY, CKD Doing fair. Breaths well at rest, but winds readily with activities. Notes some cough/congestion at times. No pain with breathing. Denies chest pressure or pain. Eating well. Stools have been moving regular, but not had stool today. Urinating well. Objective Vital signs: Temperature 95.2 F L 02/02/17 12:00 Pulse Rate 55 L 02/02/17 16:00 Respiratory Rate 20 02/02/17 14:47 Blood Pressure 99/56 02/02/17 14:47 Pulse Oximetry 92 02/02/17 14:47 Rhythm: Premature Ventricular Contractions Cardiac Ectopy: Frequent PVC's Height/Weight/BMI: Height 1.78 m Weight 78 kg Body Mass Index 20.8 - Constitutional Present: well nourished, well developed, cooperative - Routine HEENT Exam Head: Present: normocephalic, atraumatic Eye: Present: EOMI, PERRL ENT: Present: mucous membranes moist - Routine Respiratory Exam Present: decreased breath sounds. Absent: respiratory distress, rhonchi, stridor, wheezes - Routine Cardiovascular Exam Present: murmur, bradycardia - Routine Abdominal Exam Present: soft, normoactive bowel sounds, non distended, non tender - Routine Extremities Exam Present: edema (Trace LE bilaterally ). Absent: cyanosis, clubbing - Routine Musculoskeletal Exam Musculoskeletal: Present: no clubbing or cyanosis, normal strength - Routine Skin Exam Present: intact, dry, warm - Routine Neurological Exam Present: alert, CN II-XII intact, moving all extremities, vision grossly intact , hearing grossly intact. Absent: motor deficit - Routine Psychiatric Exam Present: cooperative Results - Labs CBC & Chem 7: 02/02/17 04:24 02/02/17 04:24 - ABG Interpretation ABG results: 01/30/17 01/31/17 17:10 08:46 ABG pH 7.430 ABG pCO2 39 ABG pO2 68 L ABG HCO3 26 ABG Total CO2 27.1 H ABG O2 Saturation 94.0 L ABG Base Excess 1.5 VBG pH 7.363 VBG pCO2 41.4 VBG pO2 30 L VBG HCO3 24 VBG Total CO2 25 VBG O2 Saturation 54.0 VBG Base Excess -2.0 Assessment and Plan (1) Elevated troponin Current visit: Yes Status: Resolved 01/28/17 10:33 Could be due to CHF, as it remains "Flat" or due to CKD. (2) Thrombocytopenia Current visit: Yes Status: Acute (3) Near syncope Current visit: Yes Status: Acute DVT Prophylaxis: SCD's Resuscitation Status: Full Code Assessment and Plan: Assessment Cardiac dysthymia Elevated troponin CAD Cardiomyopathy with decreased EF HTN HDL DUSTY - suspect cardiogenic due to decreased perfusion Stage III CKD Anemia of chronic disease Thrombocytopenia Hypernatremia (POA) - improved Gen debility Gait instability Plan Case discussed with Dr Meehan - working to maximize heart rate/rhythm to improve perfusion. Continue therapy to improve functional status - IRU evaluation place. Monitor lab. Hospital Course Summary Disclaimer: The visit summary below is not to be considered part of the above Progress Note. Hospital Course: 01/29/17 Continues to have frequent PVCs, generalized weakness, and nocturnal epigastric discomfort. Stable to transfer out of ICU to complete evaluation for near syncope. Continue heparin drip pending VQ scan in the morning (d-dimer significantly elevated on admission). Repeat chest x-ray today-initial films suggested volume overload/CHF although exam was not compatible with same. Renal function raised question of acute kidney injury on admission and renal function has improved slowly during hospitalization without IV fluids (although the patient's been on IV amiodarone and IV heparin). Fluid balance is essentially even from admission. Needs PT/OT evaluations. Echocardiogram pending; check BNP with a.m. labs (patient reports diuretic discontinued recently). Supplemental history provided by nursing, telemetry strips reviewed by myself; chest x-ray ordered and prior x-ray reviewed by myself. EKG is reviewed by myself. Laboratory data reviewed and compared to past data. 01/30/17 Progressively worsening dyspnea: Unclear etiology at this point, will need further work-up EF 40% on echo, was 55% on echo at the end of December VQ Scan negative for PE, Heparin switched to DVT prophylaxis He will likely need a coronary evaluation, but due to DUSTY, can be delayed Will need PFTs once respiratory status improves. Plan right heart cath tomorrow to determine volume status. 01/31/17 Right heart cath, see report. Bumex 2mg IV Q8H. Monitor electrolytes and renal. Mexiletine 150mg po TID for frequent PVCs. Repeat EKG in the morning. 02/01/17 Continue diuresis with Bumex 2mg IV Q8H as started yesterday. Monitor electrolytes and renal. Continue Mexiletine 150mg po TID as ordered yesterday. Repeat EKG in the morning. Consult PT/OT and IRU screening for discharge needs. 02/02/17 Continue diuresis with Bumex 2mg PO TID. Monitor electrolytes and renal. Encouraged IRU or NH for discharge due to weakness/ deconditioning.
[2017-02-02] MEDS ORDERED: FALL RISK - PHARMACY CONSULT MC PRN (18:50)
[2017-02-02] MEDS: TAMSULOSIN 0.4 MG CAPSULE PO SCH (21:45)
[2017-02-02] MEDS: FAMOTIDINE 20 MG TABLET PO SCH (21:45)
[2017-02-02] MEDS: BUMETANIDE 1 MG TABLET PO SCH (21:45)
[2017-02-02] MEDS: SIMVASTATIN 40 MG TABLET PO SCH (21:46)
[2017-02-03] MEDS: HEPARIN SUB-Q 5,000 UNITS/0.5 ML INJECTION SQ SCH ×2 (01:36→09:51)
[2017-02-03] MEDS: SALINE FLUSH 10ml SYRINGE IVF PRN (05:50)
[2017-02-03 07:50] VITALS: BP 122/65; PULSE 61; RESP 17; TEMP 96.6; O2SAT 93
--- NOTE | 2017-02-03 09:49 | Progress Note ---
Subjective: F/U: Cardiac dysthymia, DUSTY, CKD Doing okay this morning, getting ready to work with therapy. Breathing stable- maintains saturations on RA, winds with activities. No chest pain. Appetite stable. No F/C. Strength and stamina decreased. Objective Vital signs: Temperature 96.6 F L 02/03/17 07:47 Pulse Rate 61 02/03/17 07:47 Respiratory Rate 17 02/03/17 07:47 Blood Pressure 122/65 02/03/17 07:47 Pulse Oximetry 93 02/03/17 07:47 Rhythm: Premature Ventricular Contractions Cardiac Ectopy: Frequent PVC's Height/Weight/BMI: Height 1.78 m Weight 78 kg Body Mass Index 20.8 - Constitutional Present: no acute distress, well nourished, well developed, cooperative - Routine HEENT Exam Head: Present: normocephalic, atraumatic Eye: Present: EOMI, PERRL ENT: Present: mucous membranes moist - Routine Respiratory Exam Present: decreased breath sounds, stridor. Absent: respiratory distress, rhonchi, wheezes, crackles - Routine Cardiovascular Exam Present: irregular rhythm - Routine Abdominal Exam Present: soft, normoactive bowel sounds, non distended, non tender - Routine Extremities Exam Present: edema (+2 to BLE). Absent: cyanosis, clubbing - Routine Musculoskeletal Exam Musculoskeletal: Present: no clubbing or cyanosis. Absent: normal gait (Needs walker for assistance ) - Routine Skin Exam Present: intact, dry, warm - Routine Neurological Exam Present: alert, CN II-XII intact, moving all extremities, vision grossly intact , hearing grossly intact. Absent: motor deficit - Routine Psychiatric Exam Present: normal affect, normal thought process, cooperative. Absent: anxious, agitated Results - Labs CBC & Chem 7: 02/03/17 04:54 02/03/17 04:54 - ABG Interpretation ABG results: 01/30/17 01/31/17 17:10 08:46 ABG pH 7.430 ABG pCO2 39 ABG pO2 68 L ABG HCO3 26 ABG Total CO2 27.1 H ABG O2 Saturation 94.0 L ABG Base Excess 1.5 VBG pH 7.363 VBG pCO2 41.4 VBG pO2 30 L VBG HCO3 24 VBG Total CO2 25 VBG O2 Saturation 54.0 VBG Base Excess -2.0 Assessment and Plan (1) Elevated troponin Current visit: Yes Status: Resolved (2) Thrombocytopenia Current visit: Yes Status: Acute (3) Near syncope Current visit: Yes Status: Acute DVT Prophylaxis: SCD's, SQ Heparin Resuscitation Status: Full Code Assessment and Plan: Assessment Cardiac dysthymia Elevated troponin CAD Cardiomyopathy with decreased EF HTN HDL DUSTY - suspect cardiogenic due to decreased perfusion Stage III CKD Anemia of chronic disease Thrombocytopenia Hypernatremia (POA) - improved Gen debility Gait instability Plan IRU has accepted patient for intensive therapy to maximize functional status. Patient agreeable to IRU. Medically stable. Able to discharge him to IRU. Will need to continue to monitor his heart rate/rhythm as well as BP/Lab/ respiratory status. Stop Heparin due to thrombocytopenia Patient will establish care with Dr Hodge after discharge from IRU. See orders for details. Case discussed with CM. Time spent with patient care and discharge greater than 30 minutes. - Time spent with patient discharge greater than 30 minutes Hospital Course Summary Disclaimer: The visit summary below is not to be considered part of the above Progress Note. Hospital Course: 01/27/17 Admission SUMMARY - This is an 89 YO male that had a fall today. He presents with DUSTY, probably with dehydration and elevated TnI. Initially his telemetry showed frequent ectopy (Pt is on Amiodarone), that is now improved. His CXR suggests volume overload. He could be having a type II elevation of his TnI, will follow up serially. 1) CARDIOVASCULAR ASSESMENT A) CAD - S/P CABG WITH MILD ELEVATION OF THE TNI (Type I vs Type II). Also mild elevation of the TnI is seen in CKD. - R/O ACS - Admit to the ICU - Nitrates, BB rate control. - ASA - Consult cardiology - Check a D-Dimer if high - check a V/Q scan. - Check TnI @ 20:00 and at 4:00AM B) CHF ? Per CXR volume overload is suggested, renal function sugggests pt is dry unless this is chronic . - Check FENA now. - Will not be aggresive with fluids at this time. C) S/P AVR D) Pt gave H.O Sudden cardiac (Was successfully resucitated) 2) CKD with possible superimposed DUSTY. - Elevated BUN/Cr but ratio is normal. - Will observe serially. - Hold ACEI. 3) HYPERNATREMIA, PROBABLY HYPOVOLEMIC. - Suggests dehydration, pt was given fluid bolus via the ED - Will recheck in the AM - PT should be able to correct this on his own. 4) ANEMIA, Could be of chronic illness, but will check studies due to high MCV. 5) Leukocytosis - Could be due to acute stress - PNA ? No clinical findings to suggest, will follow serially. 6) CODE STATUS - FULL Prevention Heparin and PPI (IV) 01/28/17 1. Syncope: frequent ectopy noted on telemetry Speaking with him, is appears to be a mechanical fall, rather than a true syncopal event. But given significant ectopy, we will treat with intravenous amiodarone ( ectopy has improved), and then resume home amiodarone Monitor on telemetry 2. Elevated troponins: Remained flat, in setting of DUSTY, likely due to delayed clearance rather than acute coronary syndrome EKG largely unchanged from before (baseline RBBB with ST-T changes) Patient reports no symptoms We can stop heparin gtt now from ACS stand-point, but if pulmonary embolism is suspected may be reasonable to continue until diagnosis is made or rejected 3. CAD, s/p CABG & PCI Continue ASA May be reasonable to hold Statin in setting of DUSTY Continue Carvedilol 4. Hx Severe , s/p TAVR Repeat TTE, to assess valve function and LV function and filling pressures 5. DUSTY on CKD: Baseline Creat 1.5-1.8 Hold lisinopril Appears near euvolemic at this time, will hold off on further diuresis 6. Progressively worsening dyspnea: Unclear etiology at this point, will need further work-up Will repeat TTE, to assess valve function and LV function and filling pressures Agree with VQ Scan to rule out PE He will likely need a coronary evaluation, but due to DUSTY, can be delayed Will need PFTs once respiratory status improves 01/29/17 Continues to have frequent PVCs, generalized weakness, and nocturnal epigastric discomfort. Stable to transfer out of ICU to complete evaluation for near syncope. Continue heparin drip pending VQ scan in the morning (d-dimer significantly elevated on admission). Repeat chest x-ray today-initial films suggested volume overload/CHF although exam was not compatible with same. Renal function raised question of acute kidney injury on admission and renal function has improved slowly during hospitalization without IV fluids (although the patient's been on IV amiodarone and IV heparin). Fluid balance is essentially even from admission. Needs PT/OT evaluations. Echocardiogram pending; check BNP with a.m. labs (patient reports diuretic discontinued recently). Supplemental history provided by nursing, telemetry strips reviewed by myself; chest x-ray ordered and prior x-ray reviewed by myself. EKG is reviewed by myself. Laboratory data reviewed and compared to past data. 01/30/17 Progressively worsening dyspnea: Unclear etiology at this point, will need further work-up EF 40% on echo, was 55% on echo at the end of December VQ Scan negative for PE, Heparin switched to DVT prophylaxis He will likely need a coronary evaluation, but due to DUSTY, can be delayed Will need PFTs once respiratory status improves. Plan right heart cath tomorrow to determine volume status. 01/31/17 Right heart cath, see report. Bumex 2mg IV Q8H. Monitor electrolytes and renal. Mexiletine 150mg po TID for frequent PVCs. Repeat EKG in the morning. 02/01/17 Continue diuresis with Bumex 2mg IV Q8H as started yesterday. Monitor electrolytes and renal. Continue Mexiletine 150mg po TID as ordered yesterday. Repeat EKG in the morning. Consult PT/OT and IRU screening for discharge needs. 02/02/17 Continue diuresis with Bumex 2mg PO TID. Monitor electrolytes and renal. Encouraged IRU or NH for discharge due to weakness/ deconditioning. 02/03/17 IRU has accepted patient for intensive therapy to maximize functional status. Patient agreeable to IRU. Medically stable. Able to discharge him to IRU. Will need to continue to monitor his heart rate/rhythm as well as BP/Lab/ respiratory status. Stop Heparin due to thrombocytopenia Patient will establish care with Dr Hodge after discharge from IRU. See orders for details.
[2017-02-03] MEDS: MEXILETINE 150 MG CAPSULE PO SCH (09:50)
[2017-02-03] MEDS: BUMETANIDE 1 MG TABLET PO SCH (09:50)
[2017-02-03] MEDS: AMIODARONE 200 MG TABLET PO SCH (09:51)
[2017-02-03] MEDS: ASPIRIN *EC* 81 MG TABLET PO SCH (09:51)
[2017-02-03] MEDS: FERROUS SULFATE 324 MG TABLET PO SCH (09:51)
[2017-02-03] MEDS: FINASTERIDE 5 MG TABLET PO SCH (09:51)
[2017-02-03] MEDS: CARVEDILOL 3.125 MG TABLET PO SCH (09:51)
--- NOTE | 2017-02-03 10:03 | Discharge Summary ---
Discharge Information Date of admission: 01/27/17 16:59 Anticipated date of discharge: 02/03/17 Attending Physician: Ran Tobar MD Consults: Physician Consult Consulting Provider: Moncho Meehan Reason For Exam: ACS, CHF PT/OT - Discharge Diagnosis (1) Elevated troponin Status: Resolved (2) Thrombocytopenia Status: Acute (3) Near syncope Status: Acute Discharge Diagnosis: Discharge diagnosis Cardiac dysthymia Associated conditions and complications Elevated troponin - No evidence of AMI CAD Cardiomyopathy with decreased EF HTN HDL DUSTY - suspect cardiogenic due to decreased perfusion Stage III CKD Anemia of chronic disease Thrombocytopenia Hypernatremia (POA) - improved Gen debility Gait instability - Procedures Procedures: Date of Exam: 01/30/17 Type of Exam: US echo doppler complete Left atrium is dilated. Left ventricle end-diastolic dimension is normal. Left ventricle wall thickness is normal. LV systolic function is reduced with global hypokinesia with ejection fraction of about 30-35%. Right atrium is dilated. Right ventricle is normal. Aortic root dimension is mildly increased. Mitral valve annulus shows calcification. Mitral valve leaflets are sclerotic with no stenosis. Moderate mitral regurgitation is present. Aortic valve appears to be a bioprosthetic valve which is well seated. Transaortic velocities are 2.66 m/sec with a peak gradient of 28 and mean gradient of 16. Aortic valve area is calculated at 0.9 cm2. There is no perivalvular insufficiency. Tricuspid valve shows mild tricuspid regurgitation with moderate pulmonary hypertension with estimated pulmonary artery systolic pressure of 45-50. Pulmonary valve shows mild pulmonary insufficiency. There is no pericardial effusion. Flow is noted across the interatrial septum suggestive of atrioseptal defect versus patent foramen ovale. IMPRESSION 1. Atrioseptal defect versus patent foramen ovale. 2. Biatrial dilation. 3. Global hypokinesia with ejection fraction of about 30-35%. 4. Aortic root dilation. 5. Mitral annulus calcification with mitral sclerosis. 6. Bioprosthetic aortic valve which is well seated with no perivalvular leak. 7. Mild tricuspid regurgitation with estimated pulmonary artery systolic pressure of 45-50. 8. Mild pulmonary insufficiency. Date of Exam: 01/31/17 Type of Exam: CA heart cath RT The patient is a pleasant 89-year-old gentleman with history of coronary artery disease and aortic stenosis status post TAVR who was admitted with significant shortness of breath and renal insufficiency and we had a hard time determining his volume status with renal insufficiency and congestive heart failure symptoms and therefore he was referred for further evaluation of the volume status by right heart catheterization for further management with diuresis versus IV fluids. Informed consent was obtained after explaining the procedure and the potential risks to the patient who agreed to proceed with the procedure. PROCEDURE 1. Right heart catheterization. TECHNIQUE He was prepped and draped in the usual sterile techniques. Conscious sedation was performed using Versed and fentanyl. 1% lidocaine was used for local anesthesia. Venous access was obtained into the right femoral vein with placement of a 7-Vincentian venous sheath. HEMODYNAMIC DATA Hemodynamic data were obtained after advancing a Cocoa-Abhinav catheter through the venous system and obtaining samples and measuring the pressures. Right atrial mean pressure of 16, right ventricular pressure was 57/12 with an EDP of 18, pulmonary artery pressure was 50/25 with a mean of 34, and pulmonary capillary wedge pressure of about 39. Aortic saturation was 97% and mixed venous saturation obtained from pulmonary artery position was 54%. The patient tolerated the procedure well with no complications. IMPRESSION 1. Moderate elevation of right heart pressures with elevated pulmonary capillary wedge pressure. PLAN Will increase diuresis and continue medical management. - Laboratory Labs: Admit Lab 01/27/17 Unknown WBC 7.9 Hgb 10.8 L Hct 33.9 L MCV 108.0 H Plt Count 114 L Neut % (Auto) 83.3 H Lymph % (Auto) 9.6 L Admit Lab 01/27/17 Unknown Sodium 149 H Potassium 4.5 Chloride 112 H Carbon Dioxide 24 Anion Gap 13 BUN 49.0 H Creatinine 2.7 H GFR Calculation 22 BUN/Creatinine Ratio 18 Calculated Osmolality 299 H Total Bilirubin 0.80 AST 37 ALT 42 Alkaline Phosphatase 57 Troponin I 0.151 H Other Lab 01/27/17 Unknown Ferritin 132 Vitamin B12 941 H Folate 19.8 02/03/17 04:54 09/22/17 04:54 - Radiology Radiology: Date of Exam: 01/27/17 Type of Exam: XR chest 1V Comparison: January 25, 2017 Findings: Prior sternotomy and cardiac valve replacement. Prior CABG. Bilateral shoulder replacements. Continued small effusions with lower lobe airspace disease that may be slightly worsened on the right. No pneumothorax. Cardiac silhouette remains moderately enlarged. Mediastinal contours are stable with a tortuous ectatic thoracic aorta. Impression: Continued findings of CHF with possible superimposed right lower lobe pneumonia or aspiration. ------- Date of Exam: 01/30/17 EXAM: US renal BI FINDINGS: The right kidney measures 10.9 x 4.7 x 4.0 cm. There is no right sided mass, calculus or hydronephrosis. The left kidney measures 8.9 x 4.1 x 4.3cm. There is no left sided mass, calculus or hydronephrosis. Simple/benign appearing bilateral cysts noted. Normal bilateral ureteral jets are present. The bladder appears grossly normal. IMPRESSION: 1. No hydronephrosis appreciated bilaterally. 2. Benign/simple appearing bilateral cysts. Date of Exam: 01/30/17 EXAM: Ventilation-Perfusion Scintigraphy IMPRESSION: Low probability for acute pulmonary embolism. History of Present Illness HPI: Pt was at a in which he drank a bit too much coffee, then when he was going to get back on his car, he felt a bit clumsy and fell backwards with no head trauma or LOC. Paramedics were called. Pt was apparently found to have an abnormal rhythm and breathing and was brought to the ED. At the ED initially pt had very frequent PVC's in a bigemini pattern, he was given IVF on route and currently he is not having frequent ectopy. Pt states he is feeling fine. He is on O2, he states he does not have COPD and is not on home O2. A sample was obtained to check TnI this was processed here at 14:16 and was a bit high @ 0.151. Pt states he discussed his current situation with Dr Meehan and he agreed to stay and be observed in the ICU. Pt denies current CP, or SOB. He denies any PND, orthopnea, nocturia. Pt has extensive cardiac history including being S/P CABG (30 years ago), he recalls having a stent and had about 1 year ago a vascular procedure to replace his Aortic Valve. He denies having syncope , and still drives. For complete details of the H&P refer to that document. Objective Vital signs: Temperature 96.6 F L 02/03/17 07:47 Pulse Rate 61 02/03/17 07:47 Respiratory Rate 17 02/03/17 07:47 Blood Pressure 122/65 02/03/17 07:47 Pulse Oximetry 93 02/03/17 07:47 Rhythm: Premature Ventricular Contractions Cardiac Ectopy: Frequent PVC's Height/Weight/BMI: Height 1.78 m Weight 78 kg Body Mass Index 20.8 Hospital Course This is a general summary of the patient's hospital course. For more details refer to the complete medical record. Hospital course: 01/27/17 Admission SUMMARY - This is an 89 YO male that had a fall today. He presents with DUSTY, probably with dehydration and elevated TnI. Initially his telemetry showed frequent ectopy (Pt is on Amiodarone), that is now improved. His CXR suggests volume overload. He could be having a type II elevation of his TnI, will follow up serially. 1) CARDIOVASCULAR ASSESMENT A) CAD - S/P CABG WITH MILD ELEVATION OF THE TNI (Type I vs Type II). Also mild elevation of the TnI is seen in CKD. - R/O ACS - Admit to the ICU - Nitrates, BB rate control. - ASA - Consult cardiology - Check a D-Dimer if high - check a V/Q scan. - Check TnI @ 20:00 and at 4:00AM B) CHF ? Per CXR volume overload is suggested, renal function sugggests pt is dry unless this is chronic . - Check FENA now. - Will not be aggresive with fluids at this time. C) S/P AVR D) Pt gave H.O Sudden cardiac (Was successfully resucitated) 2) CKD with possible superimposed DUSTY. - Elevated BUN/Cr but ratio is normal. - Will observe serially. - Hold ACEI. 3) HYPERNATREMIA, PROBABLY HYPOVOLEMIC. - Suggests dehydration, pt was given fluid bolus via the ED - Will recheck in the AM - PT should be able to correct this on his own. 4) ANEMIA, Could be of chronic illness, but will check studies due to high MCV. 5) Leukocytosis - Could be due to acute stress - PNA ? No clinical findings to suggest, will follow serially. 6) CODE STATUS - FULL Prevention Heparin and PPI (IV) 01/28/17 1. Syncope: frequent ectopy noted on telemetry Speaking with him, is appears to be a mechanical fall, rather than a true syncopal event. But given significant ectopy, we will treat with intravenous amiodarone ( ectopy has improved), and then resume home amiodarone Monitor on telemetry 2. Elevated troponins: Remained flat, in setting of DUSTY, likely due to delayed clearance rather than acute coronary syndrome EKG largely unchanged from before (baseline RBBB with ST-T changes) Patient reports no symptoms We can stop heparin gtt now from ACS stand-point, but if pulmonary embolism is suspected may be reasonable to continue until diagnosis is made or rejected 3. CAD, s/p CABG & PCI Continue ASA May be reasonable to hold Statin in setting of DUSTY Continue Carvedilol 4. Hx Severe , s/p TAVR Repeat TTE, to assess valve function and LV function and filling pressures 5. DUSTY on CKD: Baseline Creat 1.5-1.8 Hold lisinopril Appears near euvolemic at this time, will hold off on further diuresis 6. Progressively worsening dyspnea: Unclear etiology at this point, will need further work-up Will repeat TTE, to assess valve function and LV function and filling pressures Agree with VQ Scan to rule out PE He will likely need a coronary evaluation, but due to DUSTY, can be delayed Will need PFTs once respiratory status improves 01/29/17 Continues to have frequent PVCs, generalized weakness, and nocturnal epigastric discomfort. Stable to transfer out of ICU to complete evaluation for near syncope. Continue heparin drip pending VQ scan in the morning (d-dimer significantly elevated on admission). Repeat chest x-ray today-initial films suggested volume overload/CHF although exam was not compatible with same. Renal function raised question of acute kidney injury on admission and renal function has improved slowly during hospitalization without IV fluids (although the patient's been on IV amiodarone and IV heparin). Fluid balance is essentially even from admission. Needs PT/OT evaluations. Echocardiogram pending; check BNP with a.m. labs (patient reports diuretic discontinued recently). Supplemental history provided by nursing, telemetry strips reviewed by myself; chest x-ray ordered and prior x-ray reviewed by myself. EKG is reviewed by myself. Laboratory data reviewed and compared to past data. 01/30/17 Progressively worsening dyspnea: Unclear etiology at this point, will need further work-up EF 40% on echo, was 55% on echo at the end of December VQ Scan negative for PE, Heparin switched to DVT prophylaxis He will likely need a coronary evaluation, but due to DUSTY, can be delayed Will need PFTs once respiratory status improves. Plan right heart cath tomorrow to determine volume status. 01/31/17 Right heart cath, see report. Bumex 2mg IV Q8H. Monitor electrolytes and renal. Mexiletine 150mg po TID for frequent PVCs. Repeat EKG in the morning. 02/01/17 Continue diuresis with Bumex 2mg IV Q8H as started yesterday. Monitor electrolytes and renal. Continue Mexiletine 150mg po TID as ordered yesterday. Repeat EKG in the morning. Consult PT/OT and IRU screening for discharge needs. 02/02/17 Continue diuresis with Bumex 2mg PO TID. Monitor electrolytes and renal. Encouraged IRU or NH for discharge due to weakness/ deconditioning. 02/03/17 IRU has accepted patient for intensive therapy to maximize functional status. Patient agreeable to IRU. Medically stable. Able to discharge him to IRU. Will need to continue to monitor his heart rate/rhythm as well as BP/Lab/ respiratory status. Stop Heparin due to thrombocytopenia Patient will establish care with Dr Hodge after discharge from IRU. See orders for details. Time spent with patient: discharge greater than 30 minutes DVT Prophylaxis: SCD's, SQ Heparin Discharge Plan - Med Rec/Dispo Referrals/Follow Up: Tacho Hodge DO [Physician] - (Follow-up appt. with Dr. Hodge on 02/23/17 at 9:30 am. Check in at 9:00 am Please bring Photo ID and insurance cards ) Prescriptions: New Famotidine [Pepcid] 20 mg PO HS tablet Mexiletine [Mexitil] 150 mg PO TIDWM capsule CALCIUM CARBONATE Chewable [Tums Extra Strength] 750 mg PO PRN PRN tab.chew PRN Reason: Dyspepsia Bumetanide Tab [Bumex Tab] 2 mg PO TID tablet Sodium Chloride [Deep Sea] 1 spray EA NOSTRIL PRN PRN spray PRN Reason: Congestion Continue Finasteride 5 mg PO DAILY #0 Multivitamin [Multi-Vitamin Daily] 1 tab PO DAILY #0 Carvedilol 3.125 mg PO BIDWM #0 Ferrous Sulfate [Iron] 325 mg PO DAILY Aspirin [Adult Low Dose Aspirin EC] 81 mg PO DAILY Amiodarone HCl 200 mg PO DAILY #0 Tamsulosin HCl 0.4 mg PO HS #0 Simvastatin [Zocor] 40 mg PO HS Nitroglycerin [Nitrostat] 0.4 mg SL [id number] PRN PRN Reason: Chest Pain Discontinued Lisinopril [Prinivil] 5 mg PO DAILY Diphenhydra/Phenyleph/Acetamin [Allergy Plus-Sinus [place]] 2 tab PO Q4H PRN PRN Reason: Prn Orders Discharge Instructions/Outpatient Orders: Final Provider Discharge Instructions Location: Determined By Patient - Disposition [facility] To [facility] - Attestation Attestation Narrative: 02/03/17 10:20 I have independently interviewed and examined patient prior to discharge. See my progress note from today for details. Medically stable for discharge to IRU.
== END 2017-02-03 11:00 | DRG 287 ==
LOC: ED 13:41 → CCU 16:59 → MED 01-29 14:58
PROVIDERS: ADMIT Internal Medicine; ATTEND Internal Medicine

== ENCOUNTER 2017-02-03 10:50 | Inpatient (IN) ==
[2017-02-03 11:30] VITALS: BMI 23.4
[2017-02-03] MEDS ORDERED: SALINE 0.65% NASAL SPRAY 44 ML BOTTLE EA NOSTRIL PRN (13:25)
[2017-02-03] MEDS ORDERED: NITROGLYCERIN 0.4 MG SUBLINGUAL TABLET SL PRN (13:25)
[2017-02-03] MEDS ORDERED: ACETAMINOPHEN 325 MG TABLET PO PRN (13:25)
[2017-02-03] MEDS ORDERED: Bisacodyl EC TAB 5 MG TABLET PO PRN (13:25)
[2017-02-03] MEDS ORDERED: BISACODYL 10 MG SUPPOSITORY RECTALLY PRN (13:25)
[2017-02-03] MEDS ORDERED: MAG-AL + SIM ORAL LIQUID 30ml PO PRN (13:25)
[2017-02-03] MEDS ORDERED: CALCIUM CARBONATE Chewable 750mg TABLET PO PRN (13:25)
[2017-02-03] MEDS ORDERED: ATROPINE 1 MG/ML INJECTION IVP PRN (13:25)
--- NOTE | 2017-02-03 14:31 | Cardiology Consult Note ---
History of Present Illness Consult date: 02/03/17 <AndraKira M - 02/03/17 14:41> Requesting physician: Manny Shahid <Kira Silverman M - 02/03/17 14:41> Consult reason: congestive heart failure <Kira Silverman - 02/03/17 14:41> Chief complaint: dyspnea <Kira Silverman - 02/03/17 14:41> History of present illness: Mr Sepulveda is a 89 year old male who is well known to Dr. Meehan who has long standing CAD, underwent CABG long time ago, in 2015 underwent PTCA of big sandy PDA via SVG to PDA in 10/2015. He at that time had severely reduced LV function (LVEF 30%); and severe aortic stenosis. He then underwent Transfemoral Transcatheter Aortic Valve Replacement (Left TF-TAVR), using a 26mm Gibson-3 bioprosthesis on 12/2015. He did well after TAVR, his LV function improved. His one year follow-up echo on 12/2016, showed normal LV function. He was seen in Valve clinic at [facility], and was doing well at that time. Reports for last week or two developed significant dyspnea with minimal exertion , he saw Dr Meehan in clinic on 01/25/17, was advised to undergo Adenosine MPI, scheduled in 2-3 weeks. Last week on Monday "Wale," fell backwards with no head trauma or LOC. EMS arrived and he was found to have an abnormal heart rhythm and breathing and was brought to the ED. In the ED, he had very frequent PVC's in a bigemini pattern, he was given IVF on route. Initial Troponin is 0.151. Dr. Meehan examined the patient and he agreed to stay and be observed in the ICU. On 01/31/17 he underwent right heart cath to determined fluid balance and treatment plan, and found to have moderate elevation of right heart pressures with elevated pulmonary capillary wedge pressure. Diuretics were increased for medical management. Today he was transferred to IRU at [facility] for further strengthening following recent illness. <AndraKira - 02/03/17 14:41> Review of Systems - Constitutional Constitutional: Absent: chills, fever(s) <AndraKira - 02/03/17 14:41> - EENMT Eyes: Absent: change in vision <Kira Silverman 02/03/17 14:41> Balance: Absent: vertigo <Kira Silverman 02/03/17 14:41> Mouth/Throat: Absent: sore throat <AndraKira byers 02/03/17 14:41> - Cardiovascular Cardiovascular: Present: dyspnea on exertion. Absent: chest pain, palpitations , syncope <Kira Silverman 02/03/17 14:41> Rhythm: Present: abnormal rhythm <AndraKira byers 02/03/17 14:41> - Respiratory Respiratory: Absent: cough, dyspnea <Kira Silverman 02/03/17 14:41> - Gastrointestinal Gastrointestinal: Absent: abdominal pain, diarrhea, nausea, vomiting <Kira Silverman 02/03/17 14:41> - Genitourinary Genitourinary: Absent: dysuria <AndraKira byers 02/03/17 14:41> - Integumentary/Breasts Integumentary: Absent: rash <Kira Silverman 02/03/17 14:41> - Neurological Neurological: Absent: dizziness <AndraKira byers 02/03/17 14:41> - Endocrine Endocrine: Absent: palpitations <Kira Silverman 02/03/17 14:41> PFS Patient Stated Medical History Dental Problems Yes: dentures Hearing Loss Yes: bilateral hearing aids Cardiac Arrhythmia Yes Hypertension Yes Myocardial Infarction Yes Constipation Yes Hx Incontinence Yes Hx Renal Disease Yes <Moncho Meehan - 02/07/17 12:48> Patient Stated Medical History Cardiac Arrhythmia Yes Hypertension Yes Myocardial Infarction Yes Hx Renal Disease Yes <Kira Silverman 02/03/17 14:41> Surgical History: Cardiac: cardiac bypass, cardiac cath. Joint: hip, knee, shoulder <Kira Silverman 02/03/17 14:41> Family History: [place] DM <AndraKira byers 02/03/17 14:41> - Social History Smoking status: Former smoker <Kira Silverman 02/03/17 14:41> Substance use type: does not use <Kira Silverman 02/03/17 14:41> Alcohol intake frequency: does not drink <Kira Silverman - 02/03/17 14:41> Housing: apartment <Kira Silverman - 02/03/17 14:41> Household members: spouse <Kira Silverman - 02/03/17 14:41> Current occupational status: retired <Kira Silverman - 02/03/17 14:41> Current residence: Apartment/Private Home <Kira Silverman - 02/03/17 14:41> Medications Home Medications Medication Instructions Recorded Confirmed Type Amiodarone HCl 200 mg PO DAILY #0 07/31/15 01/27/17 History Tamsulosin HCl 0.4 mg PO HS #0 07/31/15 01/27/17 History Finasteride 5 mg PO DAILY #0 09/21/15 01/27/17 History Multivitamin [Multi-Vitamin Daily] 1 tab PO DAILY #0 10/20/15 01/27/17 History Carvedilol 3.125 mg PO BIDWM #0 04/14/16 01/27/17 History Aspirin [Adult Low Dose Aspirin EC] 81 mg PO DAILY 01/27/17 01/27/17 History Ferrous Sulfate [Iron] 325 mg PO DAILY 01/27/17 01/27/17 History Nitroglycerin [Nitrostat] 0.4 mg SL Q5MIN3 PRN 01/27/17 01/27/17 History Simvastatin [Zocor] 40 mg PO HS 01/27/17 01/27/17 History <Moncho Meehan - 02/07/17 12:48> Allergies Allergy/AdvReac Type Severity Reaction Status Date / Time fosinopril Allergy Unknown Verified 01/27/17 15:02 Sulfa (Sulfonamide Allergy Unknown HOARSENESS Verified 01/27/17 15:02 Antibiotics) <Moncho Meehan - 02/07/17 12:48> Exam Vital signs: Temperature 98.5 F 02/07/17 08:00 Pulse Rate 57 L 02/07/17 08:00 Respiratory Rate 16 02/07/17 08:00 Blood Pressure 122/65 02/07/17 08:00 Pulse Oximetry 92 02/07/17 08:00 <Moncho Meehan - 02/07/17 12:48> Temperature 97.7 F 02/03/17 11:15 Pulse Rate 78 02/03/17 11:15 Respiratory Rate 18 02/03/17 11:15 Blood Pressure 112/60 02/03/17 11:15 Pulse Oximetry 92 02/03/17 11:15 <Kira Silverman [facility] 02/03/17 14:41> - Constitutional no acute distress, cooperative <Kira Silverman [facility] 02/03/17 14:41> - Routine HEENT Exam Head: Present: normocephalic <Kira Silverman 02/03/17 14:41> ENT: Present: mucous membranes moist <Kira Silverman 02/03/17 14:41> - Routine Neck Exam Absent: JVD, carotid bruit <Kira Silverman 02/03/17 14:41> - Routine Chest/Breast/Axilla Exam Chest wall: Absent: tenderness <Kira Silverman 02/03/17 14:41> - Routine Respiratory Exam Present: CTA bilaterally, diminished air movement <Kira Silverman 02/03/17 14:41> - Routine Cardiovascular Exam Present: murmur (III/), irregular rhythm. Absent: JVD <Kira Silverman 14:41> - Routine Abdominal Exam Present: soft, normoactive bowel sounds <Kira Silverman 02/03/17 14:41> - Routine Extremities Exam Present: edema <Kira Silverman [facility] 02/03/17 14:41> - Routine Skin Exam Present: intact, dry, warm <Kira Silverman 02/03/17 14:41> - Routine Neurological Exam Present: alert, oriented X3 <Kira Silverman [facility] 02/03/17 14:41> - Routine Psychiatric Exam Present: normal affect, normal thought process <Kira Silverman 02/03/17 14: 41> Results 02/07/17 04:24 02/07/17 04:25 <Moncho Meehan - 02/07/17 12:48> CBC 02/07/17 Range/Units 04:24 WBC 5.1 (4.5-11.0) T/MM3 RBC 2.99 L (4.50-5.90) M/MM3 Hgb 10.1 L (13.5-17.5) GM/DL Hct 31.9 L (41-53) % Plt Count 69 L (130-400) T/MM3 Neut # 4.0 (1.8-7.7) T/MM3 Lymph # 0.5 L (1-4.8) T/MM3 [place] # 0.5 (0-0.8) T/MM3 Eos # 0.0 (0-0.5) T/MM3 Baso # 0.0 (0-0.2) T/MM3 Comprehensive Metabolic Panel 02/07/17 Range/Units 04:25 Sodium 137 (134-144) MEQ/L Potassium 3.9 (3.6-5) MEQ/L Chloride 94 L (98-107) MEQ/L Carbon Dioxide 34 H (22-30) MEQ/L BUN 71.0 H* (9-20) MG/DL Creatinine 2.7 H (0.8-1.5) MG/DL Glucose 103 (75-110) MG/DL Calcium 9.0 (8.4-10.2) MG/DL Intake and Output 02/06/17 02/07/17 02/07/17 22:59 06:59 14:59 Intake Total 200 / 200 250 / 250 Output Total 450 / 450 200 / 200 Balance -250 / -250 -200 / -200 250 / 250 Intake: Oral 200 / 200 250 / 250 Output: Urine 450 / 450 200 / 200 Other: Urine Appearance Cloudy Urine Color [place] Urine Odor Strong # Voids 1 <Moncho Meehan - 02/07/17 12:48> Intake and Output 02/02/17 02/03/17 02/03/17 22:59 06:59 14:59 Other: Weight 163 lb 5.8 oz Patient Weight 02/04/17 06:59 Weight 163 lb 5.8 oz <Kira Silverman - 02/03/17 14:41> Assessment and Plan - Attestation Attestation Narrative: 02/07/17 12:48 Recommendation After examining the patient I agree with the above assessment. I am involved in the formulation of the patient's plan of care. <Moncho Meehan - 02/07/17 12:48> - Assessment and Plan (1) Atherosclerotic heart disease of big sandy coronary artery without angina pectoris Current visit: No Status: Acute (2) CKD (chronic kidney disease) Current visit: No Status: Chronic (3) Cardiomyopathy Current visit: No Status: Chronic (4) Essential (primary) hypertension Current visit: No Status: Acute (5) Mixed hyperlipidemia Current visit: No Status: Acute (6) Dyspnea, unspecified Current visit: No Status: Acute (7) 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 Status: Chronic (8) Systolic CHF, acute on chronic Current visit: Yes Status: Acute (9) Afib Current visit: Yes Status: Acute <Moncho Meehan - 02/07/17 12:48> (1) Systolic CHF, acute on chronic Current visit: Yes Status: Acute Cardiology to manage Bumex and cardiac meds. Continue to monitor kidney function /electrolytes. (2) Dyspnea, unspecified Current visit: No Status: Acute Continue diuresis with Bumex 2mg PO TID. Monitor electrolytes and renal. (3) 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 Status: Chronic Amiodarone 200mg daily and Mexiletine 150mg TID (4) Atherosclerotic heart disease of big sandy coronary artery without angina pectoris Current visit: No Status: Acute (5) Cardiomyopathy Current visit: No Status: Chronic Continue Coreg and Aspirin (6) Essential (primary) hypertension Current visit: No Status: Acute (7) Mixed hyperlipidemia Current visit: No Status: Acute Continue Simvastatin (8) CKD (chronic kidney disease) Current visit: No Status: Chronic <Kira Silverman - 02/06/17 10:12> Hospital Course Summary Disclaimer: The visit summary below is not to be considered part of the above Progress Note. <Moncho Meehan - 02/07/17 12:48> The visit summary below is not to be considered part of the above Progress Note. <Kira Silverman - 02/03/17 14:41> Hospital Course: Cardiology to manage Bumex and cardiac meds. Continue to monitor kidney function/electrolytes Continue Amiodarone 200mg daily and Mexiletine 150mg TID for frquent PVCs. Continue Coreg and Aspirin for cardiomyopathy and CAD Continue Statin therapy Thank you for the consult. We will continue to follow along with you. <Kira Silverman - 02/06/17 10:18>
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
--- NOTE | 2017-02-03 16:36 | IRU 24Hr Post Admit Eval ---
24 Hr Post Admission Physical - Relevant Changes Relevant Changes: primary cause of his debilitation and reason for admission to IRU is his congestive cardiomyopathy. Reviewed: I have reviewed the patient's information and concur with the finding and results of the pre-admission screen. Certification: I certify the patient for rehabilitation. - Patient Condition (1) Cardiomyopathy Status: Chronic Qualifiers: Cardiomyopathy type: ischemic Qualified Code(s): I25.5 - Ischemic cardiomyopathy Code(s): I42.9 - Cardiomyopathy, unspecified Classification: Present on IRF Admission, IRF Tx That Should Address Diagnosis, Diagnosis Requiring Medical Follow Up (2) Thrombocytopenia Status: Acute Code(s): D69.6 - Thrombocytopenia, unspecified Classification: Present on IRF Admission, IRF Tx That Should Address Diagnosis, Diagnosis Requiring Medical Follow Up (3) CKD (chronic kidney disease) Status: Chronic Qualifiers: Chronic kidney disease stage: stage 4 (severe) Qualified Code(s): N18.4 - Chronic kidney disease, stage 4 (severe) Code(s): N18.9 - Chronic kidney disease, unspecified Classification: Present on IRF Admission, IRF Tx That Should Address Diagnosis, Diagnosis Requiring Medical Follow Up (4) Ventricular premature complex Status: Chronic Code(s): I49.3 - Ventricular premature depolarization Classification: Present on IRF Admission, IRF Tx That Should Address Diagnosis, Diagnosis Requiring Medical Follow Up (5) Systolic CHF, acute on chronic Status: Acute Code(s): I50.23 - Acute on chronic systolic (congestive) heart failure Classification: Present on IRF Admission, IRF Tx That Should Address Diagnosis, Diagnosis Requiring Medical Follow Up - Prior Functional Status Lives With: Spouse Residence Type: Apartment/Private Home Assitive Devices: Front Wheeled Walker Prior Functional Status: Indep. at home or school, Indep. w/ all home ADL - Current Functional Status Current Level of Function: The patient is total assistance for transfers and maximal assistance for ambulation. Failed Alternative Therapy: Arrived from Acute Care Patient Requirements: The patient requires oversight by rehabilitation physician to manage their rehabilitation treatment plan and multidisciplinary approach to care that can only be provided in an IRF and requires a multidisciplinary approach to care, provided by professional PTs, OTs, STs, dieticians, RTs, rehabilitation nurses and is not available in lesser levels of care. Limitations Req: Mobility Impairment, ADL Impairment, Respiratory Impairment Physical Therapy Minutes: 90 Occupational Therapy Minutes: 90 Therapy: The patient is to receive therapy at least 5 days a week. - Complications/Comorbidities Barriers to Discharge: Weakness, Endurance, Medical Limitation - Impact of Co-morbidities on function His congestive cardiomyopathy will impact his ability to tolerate therapy. We will monitor this carefully and adjust as needed. - Plan to Avoid Complications Plan to Avoid Complications: The patient cannot receive this care in a lesser intensive setting such as Shelter or Outpatient Therapy due to the patient requiring the following : 24 hour nursing monitoring of his congestive heart failure, shortness of breath, peripheral edema as well as monitoring of his PVCs and blood pressure. He will require medical management of these conditions as well.
[2017-02-03] MEDS: CARVEDILOL 3.125 MG TABLET PO SCH (18:37)
[2017-02-03] MEDS: MEXILETINE 150 MG CAPSULE PO SCH (18:37)
[2017-02-03] MEDS: BUMETANIDE 1 MG TABLET PO SCH ×2 (18:37→21:00)
[2017-02-03] MEDS ORDERED: FALL RISK - PHARMACY CONSULT XX ONE (19:30)
[2017-02-03] MEDS: FAMOTIDINE 20 MG TABLET PO SCH (21:00)
[2017-02-03] MEDS: SIMVASTATIN 40 MG TABLET PO SCH (21:00)
[2017-02-03] MEDS: TAMSULOSIN 0.4 MG CAPSULE PO SCH (21:00)
[2017-02-03] MEDS: SALINE FLUSH 10ml SYRINGE IVF PRN (21:01)
[2017-02-04] MEDS: CARVEDILOL 3.125 MG TABLET PO SCH ×2 (08:56→17:48)
[2017-02-04] MEDS: BUMETANIDE 1 MG TABLET PO SCH ×3 (08:57→20:39)
[2017-02-04] MEDS: FERROUS SULFATE 324 MG TABLET PO SCH (08:57)
[2017-02-04] MEDS: MEXILETINE 150 MG CAPSULE PO SCH ×3 (08:57→17:48)
[2017-02-04] MEDS: AMIODARONE 200 MG TABLET PO SCH (08:58)
[2017-02-04] MEDS: ASPIRIN *EC* 81 MG TABLET PO SCH (08:58)
[2017-02-04] MEDS: FINASTERIDE 5 MG TABLET PO SCH (08:58)
--- NOTE | 2017-02-04 09:02 | Consult Note ---
<Aye Lubin - Last Filed: 02/04/17 10:51> Consult Information - Data of Consult Consult date: 02/04/17 Requesting Physician: Manny Shahid MD Primary Care Provider: currently does not have one Family Provider: sees Dr. Marcus - Consult Narrative Reason for consult: medical management of chronic health problems. History of present illness: Mr. Sepulveda is an 89-year-old male who comes to the rehabilitation unit from the acute medical floor. He was brought to the emergency department by EMS on . Patient states he had been to a and was walking back to his car and while trying to get into his car he fell. He states he was not hurt in the fall, but that he agreed to go to the emergency room because he had been so short of breath. States that even just trying to get dressed to go to the wore him out due to his shortness of breath. In the ER he was found to have frequent bigeminal PVCs and hypotension. He was admitted and seen by cardiology. He had a right heart catheterization by Dr. Meehan to determine fluid balance. His medications were adjusted and he was diuresed. He continues on Bumex, cardiology is managing this. His heparin was stopped yesterday due to thrombocytopenia. He is seen today sitting in his chair. He states overall he feels well other than if he gets up or exerts himself in any way he gets short of breath. When he rests in his chair or lying down, he is asymptomatic. He's had no chest pain , no abdominal pain, but it's been several days since his last BM. Nurses are planning on giving him MOM after therapy this afternoon. [facility] Patient Stated Medical History chronic kidney disease stage IV Thrombocytopenia (acute/new) Frequent PVCs. Aortic stenosis status post TAVR. Congestive cardiomyopathy (current ejection fraction 3035 percent) Hypertension Medical History Updates: chronic kidney disease stage IV. Thrombocytopenia ( acute/new). Frequent PVCs. Aortic stenosis status post TAVR. Congestive cardiomyopathy (current ejection fraction 3035 percent) Surgical History: Cardiac: cardiac bypass, cardiac cath. Joint: hip, knee, shoulder - Social History Smoking status: Former smoker (he smoked for 10 years less than one pack per day ) Substance use type: does not use Alcohol intake frequency: former alcohol drinker Housing: house Household members: spouse (has dementia he is her caregiver) Current occupational status: retired Current residence: Apartment/Private Home Social history: Will be establishing with Dr. Ivey [employer] is Dr. Meehan Review of Systems - Respiratory Respiratory: Present: dyspnea (only with exertion). Absent: cough - Gastrointestinal Gastrointestinal: Present: constipation Medications Home Medications Medication Instructions Recorded Confirmed Type Amiodarone HCl 200 mg PO DAILY #0 07/31/15 01/27/17 History Tamsulosin HCl 0.4 mg PO HS #0 07/31/15 01/27/17 History Finasteride 5 mg PO DAILY #0 09/21/15 01/27/17 History Multivitamin [Multi-Vitamin Daily] 1 tab PO DAILY #0 10/20/15 01/27/17 History Carvedilol 3.125 mg PO BIDWM #0 04/14/16 01/27/17 History Aspirin [Adult Low Dose Aspirin EC] 81 mg PO DAILY 01/27/17 01/27/17 History Ferrous Sulfate [Iron] 325 mg PO DAILY 01/27/17 01/27/17 History Nitroglycerin [Nitrostat] 0.4 mg SL Q5MIN3 PRN 01/27/17 01/27/17 History Simvastatin [Zocor] 40 mg PO HS 01/27/17 01/27/17 History Allergies Allergy/AdvReac Type Severity Reaction Status Date / Time fosinopril Allergy Unknown Verified 01/27/17 15:02 Sulfa (Sulfonamide Allergy Unknown HOARSENESS Verified 01/27/17 15:02 Antibiotics) Exam Vital Signs: Temperature 98.4 F 02/03/17 23:32 Pulse Rate 73 02/04/17 00:00 Respiratory Rate 18 02/03/17 23:32 Blood Pressure 111/57 02/03/17 23:32 Pulse Oximetry 90 02/03/17 23:32 Height/Weight/BMI: Height 1.78 m Weight 74.1 kg Body Mass Index 23.4 - Constitutional Present: no acute distress, well nourished, well developed - Routine HEENT Exam Head: Present: normocephalic, atraumatic Eye: Present: EOMI - Routine Neck Exam Present: supple - Routine Respiratory Exam Present: CTA bilaterally. Absent: wheezes - Routine Cardiovascular Exam Present: irregular rhythm. Absent: murmur - Routine Abdominal Exam Present: soft, normoactive bowel sounds, non distended. Absent: tenderness - Routine Extremities Exam Present: edema (1+ bilateral), normal capillary refill - Routine Skin Exam Present: dry, warm - Routine Neurological Exam Present: alert, oriented X3, moving all extremities - Routine Psychiatric Exam Present: normal affect, normal thought process, cooperative Results - Labs CBC & Chem 7: 02/04/17 05:47 02/04/17 05:47 Assessment and Plan (1) Atherosclerotic heart disease of [place] coronary artery without angina pectoris Current visit: No Status: Acute (2) Essential (primary) hypertension Current visit: No Status: Acute (3) Mixed hyperlipidemia Current visit: No Status: Acute (4) Thrombocytopenia Current visit: No Status: Acute (5) CKD (chronic kidney disease) Current visit: No Status: Chronic (6) Cardiomyopathy Current visit: No Status: Chronic (7) Systolic CHF, acute on chronic Current visit: Yes Status: Acute Assessment and Plan: Impression Acute on chronic systolic CHF DUSTY on chronic kidney disease- suspect cardiogenic due to decreased perfusion Thrombocytopenia (acute/new) Frequent PVCs. Aortic stenosis status post TAVR Congestive cardiomyopathy (current ejection fraction 3035 percent) CAD HTN HDL Anemia of chronic disease General debility PLAN: Agree with orders per attending. Cardiology to manage Bumex and cardiac meds. Continue to monitor kidney function /electrolytes. Continue to hold heparin. Monitor platelet count. SCDs for DVT prophylaxis. Continue bowel motivation Thank you for the consult. We will continue to manage patient medically, along with cardiology, throughout the patient's stay. On discharge, patient plans to schedule with Dr. Ivey. He does already have an appointment scheduled on 02/23/17 at 9:30 AM. Check in at 9 AM. Hospital Course Summary Disclaimer: The visit summary below is not to be considered part of the above Progress Note. Hospital Course: Impression Acute on chronic systolic CHF DUSTY on chronic kidney disease- suspect cardiogenic due to decreased perfusion Thrombocytopenia (acute/new) Frequent PVCs. Aortic stenosis status post TAVR Congestive cardiomyopathy (current ejection fraction 3035 percent) CAD HTN HDL Anemia of chronic disease General debility 02/04/17 - hospitalist consult Agree with orders per attending. Cardiology to manage Bumex and cardiac meds. Continue to monitor kidney function /electrolytes. Continue to hold heparin. Monitor platelet count. SCDs for DVT prophylaxis. Continue bowel motivation Thank you for the consult. We will continue to manage patient medically, along with cardiology, throughout the patient's stay. On discharge, patient plans to schedule with Dr. Ivey. He does already have an appointment scheduled on 02/23/17 at 9:30 AM. Check in at 9 AM. <Jermaine Tipton Hector - Last Filed: 02/04/17 16:44> Consult Information - Data of Consult Requesting Physician: Manny Shahid MD [facility] Patient Stated Medical History Dental Problems Yes: dentures Hearing Loss Yes: bilateral hearing aids Cardiac Arrhythmia Yes Hypertension Yes Myocardial Infarction Yes Constipation Yes Hx Incontinence Yes Hx Renal Disease Yes Exam Vital Signs: Temperature 97.5 F 02/04/17 16:00 Pulse Rate 55 L 02/04/17 16:00 Respiratory Rate 16 02/04/17 16:00 Blood Pressure 112/63 02/04/17 16:00 Pulse Oximetry 93 02/04/17 16:00 Height/Weight/BMI: Height 1.78 m Weight 74.1 kg Body Mass Index 23.4 Results - Labs CBC & Chem 7: 02/04/17 05:47 02/04/17 05:47 Assessment and Plan (1) Atherosclerotic heart disease of [place] coronary artery without angina pectoris Current visit: No Status: Acute (2) CKD (chronic kidney disease) Current visit: No Status: Chronic (3) Cardiomyopathy Current visit: No Status: Chronic (4) Essential (primary) hypertension Current visit: No Status: Acute (5) Mixed hyperlipidemia Current visit: No Status: Acute (6) Thrombocytopenia Current visit: No Status: Acute (7) Systolic CHF, acute on chronic Current visit: Yes Status: Acute Resuscitation Status: Full Code Assessment and Plan: Impression Acute on chronic systolic CHF DUSTY on chronic kidney disease- suspect cardiogenic due to decreased perfusion Thrombocytopenia (acute/new) Frequent PVCs. Aortic stenosis status post TAVR Congestive cardiomyopathy (current ejection fraction 3035 percent) CAD HTN HDL Anemia of chronic disease General debility Have independently interviewed and examined pt. Chart reviewed. Case discussed with my PA. Above care plan developed with my supervision; agree with above. Doing okay today. Legs still feel weak when up and moving. Breathing doing well- not feeling SOA or congested. No pain with breathing. No chest pain. Eating well. Tolerating therapy. Lungs: decreased CV: regular AB: soft nt/nd MSE: awake alert appropriate Plan: Agree with admission of patient to IRU to maximize functional status. Encourage therapy and activities. Will need to monitor BMP secondary to diuretic use. Medically stable for IRU floor activities. Hospital Course Summary Disclaimer: The visit summary below is not to be considered part of the above Progress Note.
[2017-02-04] MEDS: TAMSULOSIN 0.4 MG CAPSULE PO SCH (20:39)
[2017-02-04] MEDS: FAMOTIDINE 20 MG TABLET PO SCH (20:39)
[2017-02-04] MEDS: SIMVASTATIN 40 MG TABLET PO SCH (20:39)
[2017-02-05] MEDS: ASPIRIN *EC* 81 MG TABLET PO SCH (09:13)
[2017-02-05] MEDS: FERROUS SULFATE 324 MG TABLET PO SCH (09:13)
[2017-02-05] MEDS: FINASTERIDE 5 MG TABLET PO SCH (09:13)
[2017-02-05] MEDS: MEXILETINE 150 MG CAPSULE PO SCH ×3 (09:14→17:49)
[2017-02-05] MEDS: AMIODARONE 200 MG TABLET PO SCH (09:15)
[2017-02-05] MEDS: CARVEDILOL 3.125 MG TABLET PO SCH ×2 (11:42→17:50)
[2017-02-05] MEDS: BUMETANIDE 1 MG TABLET PO SCH ×2 (11:42→17:41)
--- NOTE | 2017-02-05 11:51 | IRU Plan of Care ---
[facility] Overall Plan of Care - Date Date: 02/05/17 - Patient Impairments (1) Systolic CHF, acute on chronic Code(s): I50.23 - Acute on chronic systolic (congestive) heart failure Status : Acute Classification: Present on IRF Admission, IRF Tx That Should Address Diagnosis, Diagnosis Requiring Medical Follow Up (2) Atherosclerotic heart disease of [place] coronary artery without angina pectoris Qualifiers: [place] vs. transplanted heart: [place] heart Qualified Code(s): I25.10 - Atherosclerotic heart disease of [place] coronary artery without angina pectoris Code(s): I25.10 - Atherosclerotic heart disease of [place] coronary artery without angina pectoris Status: Acute Classification: Present on IRF Admission, IRF Tx That Should Address Diagnosis, Diagnosis Requiring Medical Follow Up (3) Essential (primary) hypertension Code(s): I10 - Essential (primary) hypertension Status: Acute Classification: Present on IRF Admission, IRF Tx That Should Address Diagnosis, Diagnosis Requiring Medical Follow Up (4) Mixed hyperlipidemia Code(s): E78.2 - Mixed hyperlipidemia Status: Acute Classification: Present on IRF Admission, Diagnosis Requiring Medical Follow Up (5) Thrombocytopenia Code(s): D69.6 - Thrombocytopenia, unspecified Status: Acute Classification: Present on IRF Admission, IRF Tx That Should Address Diagnosis, Diagnosis Requiring Medical Follow Up (6) CKD (chronic kidney disease) Qualifiers: Chronic kidney disease stage: stage 4 (severe) Qualified Code(s): N18.4 - Chronic kidney disease, stage 4 (severe) Code(s): N18.9 - Chronic kidney disease, unspecified Status: Chronic Classification: Present on IRF Admission, IRF Tx That Should Address Diagnosis, Diagnosis Requiring Medical Follow Up (7) Cardiomyopathy Qualifiers: Cardiomyopathy type: ischemic Qualified Code(s): I25.5 - Ischemic cardiomyopathy Code(s): I42.9 - Cardiomyopathy, unspecified Status: Chronic Classification: Present on IRF Admission, IRF Tx That Should Address Diagnosis, Diagnosis Requiring Medical Follow Up - Relevant Changes Relevant Changes: No Reviewed: I have reviewed the patient's information and concur with the finding and results of the pre-admission screen. Certification: I certify the patient for rehabilitation. - Medical Prognosis Medical Prognosis: Good Vital Signs: Last Vital Signs Temp 97.2 F 02/05/17 09:11 Pulse 59 L 02/05/17 09:11 Resp 16 02/05/17 09:11 BP 103/52 02/05/17 09:54 Pulse Ox 95 02/05/17 09:54 - Anticipated Interventions Anticipated Interventions: The patient requires inpatient IRF care for PT, OT, and/or ST for residuals remaining from exacerbation of systolic heart failure (acute on chronic) and congestive cardiomyopathy, frequent PVC's with hypotension and thrombocytopenia resulting in muscular weakness and strength deficits. Strength Deficits: Right Lower Extremity, Left Lower Extremity - Current Functional Status Patient Requires: The patient requires oversight by rehabilitation physician to manage their rehabilitation treatment plan and multidisciplinary approach to care that can only be provided in an IRF and requires a multidisciplinary approach to care, provided by professional PTs, OTs, STs, dieticians, RTs, rehabilitation nurses and is not available in lesser levels of care. Physical Therapy Minutes: 90 Occupational Therapy Minutes: 90 Therapy: The patient is to receive therapy at least 5 days a week. - Anticipated LOS/Outcomes Anticipated Functional Outcome: It is anticipated the patient will be able to return to his home at modified independent level of functioning. Anticipated Length of Stay (days): 7 (days) Anticipated DC Destination: Home, Self Care, Home Health Service Home Safety Plan: The patient will be provided with the development of a Home Safety Plan for return to a home or home-like environment and and to ensure safety post discharge. - Plan to Avoid Complications Barriers to Attaining Goals: Weakness, Endurance, Medical Limitation Plan to Avoid Complications: The patient cannot receive this care in a lesser intensive setting such as [facility] or Outpatient Therapy due to the patient requiring the following : need for telemetry for frequent PVC's, 24 hour rehab nursing monitoring of signs and symptoms of worsening heart failure.
--- NOTE | 2017-02-05 17:52 | Cardiology Progress Note ---
Subjective Principal diagnosis: acute on chronic systolic heart failure <Sharron Littlejohnca L - 02/05/17 17:53> Interval history: Pt is up in the dinning area eating. He denies dizziness, near syncope, chest pain or palpitations. Drinking well, encouraged fluids for now to replace since he is dry today. <Sharron Littlejohnca L - 02/05/17 17:53> Exam Vital signs: Temperature 97.5 F 02/06/17 08:31 Pulse Rate 65 02/06/17 08:31 Respiratory Rate 18 02/06/17 08:31 Blood Pressure 125/65 02/06/17 08:31 Pulse Oximetry 92 02/06/17 08:31 <Moncho eMehan - 02/06/17 15:14> Temperature 97.6 F 02/05/17 17:00 Pulse Rate 109 H 02/05/17 17:00 Respiratory Rate 18 02/05/17 17:00 Blood Pressure 103/62 02/05/17 17:00 Pulse Oximetry 95 02/05/17 17:00 <Sharron Littlejohnca L - 02/05/17 17:53> - Constitutional no acute distress <Sharron Littlejohnca L - 02/05/17 17:53> - Routine HEENT Exam Head: Present: normocephalic, atraumatic <Sharron Littljeohnca L - 02/05/17 17:53> Eye: Present: PERRL <Sharron Littlejohnca L - 02/05/17 17:53> ENT: Present: mucous membranes moist <Sharron Littlejohnca L - 02/05/17 17:53> - Routine Neck Exam Absent: JVD <Sharron Littlejohnca L - 02/05/17 17:53> - Routine Cardiovascular Exam Present: murmur, irregularly irregular <RichieiSharronEvangelina L - 02/05/17 17:53> - Routine Abdominal Exam Present: soft, normoactive bowel sounds <RichieiSharronEvangelina L - 02/05/17 17:53> - Routine Extremities Exam Present: no edema <RichieiSharronEvangelina L - 02/05/17 17:53> - Routine Skin Exam Present: intact <RichieiSharronEvangelina L - 02/05/17 17:53> - Routine Neurological Exam Present: alert, oriented X3, moving all extremities <Evangelina Littlejohn - 17:53> - Routine Psychiatric Exam Present: normal affect, normal thought process, cooperative <Evangelina Littlejohn - 02/05/17 17:53> Assessment and Plan - Assessment and Plan (1) Atherosclerotic heart disease of [place] coronary artery without angina pectoris Current visit: No Status: Acute (2) CKD (chronic kidney disease) Current visit: No Status: Chronic (3) Cardiomyopathy Current visit: No Status: Chronic (4) Essential (primary) hypertension Current visit: No Status: Acute (5) Mixed hyperlipidemia Current visit: No Status: Acute (6) Dyspnea, unspecified Current visit: No Status: Acute (7) 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 Status: Chronic (8) Systolic CHF, acute on chronic Current visit: Yes Status: Acute <LuznoésandiRajMoncho - 02/06/17 15:14> (1) Atherosclerotic heart disease of [place] coronary artery without angina pectoris Current visit: No Status: Acute (2) CKD (chronic kidney disease) Current visit: No Status: Chronic (3) Cardiomyopathy Current visit: No Status: Chronic (4) Essential (primary) hypertension Current visit: No Status: Acute (5) Mixed hyperlipidemia Current visit: No Status: Acute (6) Dyspnea, unspecified Current visit: No Status: Acute (7) 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 I am involved in the formulation of the patient's plan of care. <Moncho Meehan - 02/06/17 15:14> Hospital Course Summary Disclaimer: The visit summary below is not to be considered part of the above Progress Note. <Moncho Meehan - 02/06/17 15:14> The visit summary below is not to be considered part of the above Progress Note. <Evangelina Littlejohn Jono - 02/05/17 17:53> Hospital Course: Impression Acute on chronic systolic CHF DUSTY on chronic kidney disease- suspect cardiogenic due to decreased perfusion Thrombocytopenia (acute/new) Frequent PVCs. Aortic stenosis status post TAVR Congestive cardiomyopathy (current ejection fraction 3035 percent) CAD HTN HDL Anemia of chronic disease General debility 02/04/17 - hospitalist consult Agree with orders per attending. Cardiology to manage Bumex and cardiac meds. Continue to monitor kidney function /electrolytes. Continue to hold heparin. Monitor platelet count. SCDs for DVT prophylaxis. Continue bowel motivation Thank you for the consult. We will continue to manage patient medically, along with cardiology, throughout the patient's stay. On discharge, patient plans to schedule with Dr. Ivey. He does already have an appointment scheduled on 02/23/17 at 9:30 AM. Check in at 9 AM. 02/05/17 17:49 Cardiology Hold bumex for now, push fluids. Resume bumex tomorrow at reduced dosing. Creatinine up today. Trigeminy on tele, questionable run of VT per tele. Continue coreg 3.125mg bid. Hypotensive earlier today, continue to give coreg to manage PVC's if sbp >100, discussed with nursing staff. <Evangelina Littlejohn - 02/05/17 17:53>
[2017-02-05] MEDS: TAMSULOSIN 0.4 MG CAPSULE PO SCH (20:54)
[2017-02-05] MEDS: SIMVASTATIN 40 MG TABLET PO SCH (20:54)
[2017-02-05] MEDS: FAMOTIDINE 20 MG TABLET PO SCH (20:54)
[2017-02-06] MEDS: MEXILETINE 150 MG CAPSULE PO SCH ×3 (08:33→18:06)
[2017-02-06] MEDS: FERROUS SULFATE 324 MG TABLET PO SCH (08:33)
[2017-02-06] MEDS: FINASTERIDE 5 MG TABLET PO SCH (08:35)
[2017-02-06] MEDS: AMIODARONE 200 MG TABLET PO SCH (08:35)
[2017-02-06] MEDS: CARVEDILOL 3.125 MG TABLET PO SCH ×2 (08:35→18:06)
[2017-02-06] MEDS: ASPIRIN *EC* 81 MG TABLET PO SCH (08:35)
--- NOTE | 2017-02-06 08:37 | Progress Note ---
Subjective: Mr. Sepulveda was getting ready for the day. He states that he was able to sleep without nocturia from about 10p-4a. He is still having SOA with exertion, but it 's better than what it was a week ago. He denies chest pain or palpitations. He had some nausea yesterday around noon, but that resolved by dinner last night. He denies seeing any swelling in his legs. He denies feeling dizzy. His last BM was 2 days ago - he plans on requesting MOM today. Objective Vital signs: Temperature 97.5 F 02/06/17 08:31 Pulse Rate 65 02/06/17 08:31 Respiratory Rate 18 02/06/17 08:31 Blood Pressure 125/65 02/06/17 08:31 Pulse Oximetry 92 02/06/17 08:31 Height/Weight/BMI: Height 1.78 m Weight 74.1 kg Body Mass Index 23.4 - Constitutional Present: no acute distress, well nourished, well developed - Routine HEENT Exam Head: Present: normocephalic Eye: Absent: conjunctival icterus ENT: Present: mucous membranes moist, oropharynx clear - Routine Respiratory Exam Present: CTA bilaterally, diminished air movement (slightly decreased in right base) - Routine Cardiovascular Exam Present: RRR, murmur - Routine Abdominal Exam Present: soft, normoactive bowel sounds, non distended, non tender - Routine Extremities Exam Present: edema (1+ edema to b/l shins; 2+ to medial ankles) - Routine Back/Spine/Pelvis Exam Back/Spine: Present: kyphosis - Routine Skin Exam Present: intact, dry, warm - Routine Neurological Exam Present: alert, oriented X3, CN II-XII intact, normal speech - Routine Psychiatric Exam Present: normal affect, normal thought process, cooperative Results - Labs CBC & Chem 7: 02/05/17 04:48 02/06/17 05:18 Assessment and Plan (1) DUSTY (acute kidney injury) Current visit: Yes Status: Acute (2) Atherosclerotic heart disease of [place] coronary artery without angina pectoris Current visit: No Status: Acute (3) CKD (chronic kidney disease) Current visit: No Status: Chronic (4) Cardiomyopathy Current visit: No Status: Chronic (5) Essential (primary) hypertension Current visit: No Status: Acute (6) Mixed hyperlipidemia Current visit: No Status: Acute (7) Thrombocytopenia Current visit: No Status: Acute (8) Systolic CHF, acute on chronic Current visit: Yes Status: Acute DVT Prophylaxis: SCD's GI Prophylaxis: Pepcid Resuscitation Status: Full Code Assessment and Plan: Impression Acute on chronic systolic CHF DUSTY on chronic kidney disease - suspect cardiogenic due to decreased perfusion ( baseline cr 1.5-1.8) Thrombocytopenia (acute/new) Frequent PVCs. Aortic stenosis status post TAVR Congestive cardiomyopathy (EF 30-35%) CAD HTN HDL Anemia of chronic disease General debility Plan Bumex has been dc'd - I've asked cardiology to see pt today regarding elevated BUN & Cr (ratio normal). Encourage oral fluids - may need IVF bolus. Bicarb elevated but improved from yesterday (poss effect of holding loop). BP was low yesterday (MAP low normal @ 75) - improved today. Continue Coreg and meds for rate control. Discussed with OT & nursing. Repeat BMP and CBC in am. Hospital Course Summary Disclaimer: The visit summary below is not to be considered part of the above Progress Note. Hospital Course: Impression Acute on chronic systolic CHF DUSTY on chronic kidney disease- suspect cardiogenic due to decreased perfusion Thrombocytopenia (acute/new) Frequent PVCs. Aortic stenosis status post TAVR Congestive cardiomyopathy (current ejection fraction 3035 percent) CAD HTN HDL Anemia of chronic disease General debility 02/04/17 - hospitalist consult Agree with orders per attending. Cardiology to manage Bumex and cardiac meds. Continue to monitor kidney function /electrolytes. Continue to hold heparin. Monitor platelet count. SCDs for DVT prophylaxis. Continue bowel motivation Thank you for the consult. We will continue to manage patient medically, along with cardiology, throughout the patient's stay. On discharge, patient plans to schedule with Dr. Ivey. He does already have an appointment scheduled on 02/23/17 at 9:30 AM. Check in at 9 AM. 02/05/17 17:49 Cardiology Hold bumex for now, push fluids. Resume bumex tomorrow at reduced dosing. Creatinine up today. Trigeminy on tele, questionable run of VT per tele. Continue coreg 3.125mg bid. Hypotensive earlier today, continue to give coreg to manage PVC's if sbp >100, discussed with nursing staff. 02/06/17 Bumex has been dc'd - will ask cardiology to see pt today regarding elevated BUN & Cr (ratio normal). Encourage oral fluids - may need IVF bolus. Bicarb elevated but improved from yesterday (poss effect of holding loop). BP was low yesterday (MAP low normal @ 75) - improved today. Continue Coreg and meds for rate control.
--- NOTE | 2017-02-06 12:03 | IRU Progress Note ---
- Subjective/Serverity of Illness Mr. Sepulveda is evaluated in his room in the rehabilitation unit. He states that he has been struggling with some constipation. It is now improved. He denies any dizziness or lightheadedness. He does report shortness of breath with activity. He denies any chest pain and denies laura outpatient dictations. Telemetry has been monitored. Does have frequent episodes of PVCs. Question is whether these represent V. tach versus supraventricular with aberrancy. As nearly as I can determine, these are asymptomatic. An electrocardiogram was done this morning failing to reveal acute changes. I did review the telemetry strips as well. Apart from dyspnea and his constipation he states that he is doing well. He is tolerating therapy well. There is improvement being made. Did finally have a bowel movement. Medical conditions identified are as follows: 1. Congestive cardiomyopathy with global hypokinesis and ejection fraction of 3035 percent with recent fluid excess. He is being followed by cardiology and the hospitalists. His weight is down 2 kg compared to previous. 2. Elevated troponin of uncertain significance. Denies any chest pain at present. Electrocardiogram feels to reveal acute changes. 3. Thrombocytopenia, worsening, possibly secondary to heparin versus other etiology. 4. Acute on chronic kidney disease. He has chronic kidney disease stage IV and has had an acute exacerbation likely related to the poor left ventricular contractility and diuresis. His creatinine is stable although BUN is elevated likely due to diuresis. 5. Frequent PVCs with recent hypotension in the 's. He has had some hypotension yesterday in the 90s. However otherwise his blood pressures appear to be in a good range. Exam Vital Signs: Temperature 97.5 F 02/06/17 08:31 Pulse Rate 65 02/06/17 08:31 Respiratory Rate 18 02/06/17 08:31 Blood Pressure 125/65 02/06/17 08:31 Pulse Oximetry 92 02/06/17 08:31 Height/Weight/BMI: Height 1.78 m Weight 72.1 kg Body Mass Index 23.4 Comments: The patient is awake, alert and oriented and in no acute distress. Pupils are equal. The neck is supple. Chest: Clear to auscultation bilaterally in the upper lung suarez. A few crackles in the bases. Cor: irregular rhythm with no gallop, click. Systolic murmur noted. Abd: soft with normo-active bowel sounds. There are no masses, no tenderness and no guarding. Extremities: There is perhaps 1+ edema in both lower extremities. Results IRU - Labs Labs: I reviewed other providers notes in detail as well as laboratory findings. Potassium is stable. Creatinine is stable although BUN is elevated. His weight is down a couple of kilograms. Bumex has been held. IRU A/P (1) Systolic CHF, acute on chronic Current visit: Yes Status: Acute He has no ejection fraction of around 30%. He does have shortness of breath with activity although no cough and no sputum. Has been receiving Bumex which is now held. Weight is down 2 kg. (2) Atherosclerotic heart disease of [place] coronary artery without angina pectoris Qualifiers: [place] vs. transplanted heart: [place] heart Qualified Code(s): I25.10 - Atherosclerotic heart disease of [place] coronary artery without angina pectoris Current visit: No Status: Acute Does have frequent PVCs. Whether these represent ventricular tachycardia or aberrancy is not clear. These are asymptomatic. He denies any current chest discomfort. Repeat electrocardiogram today fails to reveal acute changes. (3) Essential (primary) hypertension Current visit: No Status: Acute He was a bit hypotensive yesterday but is improved today. (4) Mixed hyperlipidemia Current visit: No Status: Acute (5) Thrombocytopenia Current visit: No Status: Acute There is no evidence of active bleeding. Platelet count is reduced at 86,000. (6) CKD (chronic kidney disease) Qualifiers: Chronic kidney disease stage: stage 4 (severe) Qualified Code(s): N18.4 - Chronic kidney disease, stage 4 (severe) Current visit: No Status: Chronic His creatinine is stable. He does have chronic kidney disease stage IV. BUN is a bit elevated likely related to his diuresis. (7) Cardiomyopathy Qualifiers: Cardiomyopathy type: ischemic Qualified Code(s): I25.5 - Ischemic cardiomyopathy Current visit: No Status: Chronic DVT Prophylaxis: SCD's Resuscitation Status: Full Code - Course Hospital Course: Manny Shahid MD: 02/06/17 12:06 Appreciate input of hospitalists and radiator tester. Does have frequent PVCs. These are fairly asymptomatic. He is on amiodarone as well as Mexitil. He denies chest pain but does report shortness of breath. He is making progress with therapy. Platelets remain low but there is no bleeding. - Interventions to Obtain Goals PT Treatment Plan: Balance/Proprioception, Functional Activities, Gait Training , Patient/Family Education, Therapeutic Exercise OT Treatment Plan: ADL (Basic Care), Balance Training, IADL, Pt./Family Education, Ther. Exercise for ADL Goals Progress/Modifications: Time spent with patient and on floor reviewing data and documentin minutes Barriers to dismissal: Cardiac status/congestive cardiomyopathy, endurance, shortness of breath. Medical decision-making: Review data regarding his PVCs. Reviewed telemetry strips. Decided to continue therapy at this time. However, we are closely monitoring for cardiac decompensation.
--- NOTE | 2017-02-06 13:05 | Cardiology Progress Note ---
Subjective Principal diagnosis: acute on chronic systolic heart failure <Kira Silverman - 02/06/17 13:06> Interval history: Wale is seen in follow up for HF and frequent PVCs. He is up in the dinning area eating. He denies dizziness, near syncope, chest pain or palpitations. Drinking well, diuresis is being held due to elevated kidney function. <Kira Silverman 02/06/17 13:06> Exam Vital signs: Temperature 98.5 F 02/07/17 08:00 Pulse Rate 57 L 02/07/17 08:00 Respiratory Rate 16 02/07/17 08:00 Blood Pressure 122/65 02/07/17 08:00 Pulse Oximetry 92 02/07/17 08:00 <ShefaliMoncho - 02/07/17 12:59> Temperature 97.5 F 02/06/17 08:31 Pulse Rate 65 02/06/17 08:31 Respiratory Rate 18 02/06/17 08:31 Blood Pressure 125/65 02/06/17 08:31 Pulse Oximetry 92 02/06/17 08:31 <Kira Silverman 02/06/17 13:06> - Constitutional well nourished, cooperative <Kira Silverman 02/06/17 13:06> - Routine HEENT Exam Head: Present: normocephalic <Kira Silverman 02/06/17 13:06> ENT: Present: mucous membranes moist <Kira Silverman 02/06/17 13:06> - Routine Neck Exam Absent: JVD, carotid bruit <Kira Silverman 02/06/17 13:06> - Routine Chest/Breast/Axilla Exam Chest wall: Absent: tenderness <Kira Silverman 02/06/17 13:06> - Routine Respiratory Exam Present: CTA bilaterally, diminished air movement <Kira Silverman 02/06/17 13:06> - Routine Cardiovascular Exam Present: murmur (II/), irregular rhythm. Absent: JVD <Kira Silverman 13:06> - Routine Abdominal Exam Present: soft, normoactive bowel sounds <Kira Silverman 02/06/17 13:06> - Routine Extremities Exam Present: edema (bilateral pedal 2+) <Kira Silverman - 02/06/17 13:06> - Routine Skin Exam Present: intact, dry, warm <Kira Silverman - 02/06/17 13:06> - Routine Neurological Exam Present: alert, oriented X3 <Kira Silverman - 02/06/17 13:06> - Routine Psychiatric Exam Present: normal affect, normal thought process <Kira Silverman - 02/06/17 13: 06> - Additional findings Additional findings: Laboratory Results - last 24 hr 02/06/17 05:18 Turbidity < 20 Sodium 140 Potassium 3.9 Chloride 94 L Carbon Dioxide 35 H Anion Gap 11 BUN 70.0 H* Creatinine 2.7 H GFR Calculation 22 BUN/Creatinine Ratio 26 Glucose 105 Calculated Osmolality 290 H Calcium 8.9 Icterus Index < 2 Specimen Hemolysis < 15 Acetaminophen (Tylenol) 325 - 650 mg PO Q5H PRN PRN Reason: Pain Al Hydroxide/Mg Hydroxide (Maalox Plus) 30 ml PO Q3H PRN PRN Reason: Indigestion Amiodarone HCl (Pacerone) 200 mg PO DAILY [facility] Last Admin: 02/06/17 08:35 Dose: 200 mg Aspirin (Ecotrin) 81 mg PO DAILY [facility] Last Admin: 02/06/17 08:35 Dose: 81 mg Atropine Sulfate (Atropine) 0.5 mg IVP Q5M PRN PRN Reason: Bradycardia Bisacodyl (Dulcolax) 5 - 10 mg PO DAILY PRN PRN Reason: Constipation Bisacodyl (Dulcolax) 10 mg RECTALLY DAILY PRN PRN Reason: Constipation Last Admin: 02/04/17 20:37 Dose: 10 mg Calcium Carbonate (Tums Extra Strength) 750 mg PO PRN PRN PRN Reason: Dyspepsia Carvedilol (Coreg) 3.125 mg PO BIDWM [facility] Last Admin: 02/06/17 08:35 Dose: 3.125 mg Famotidine (Pepcid) 20 mg PO HS [facility] Last Admin: 02/05/17 20:54 Dose: 20 mg Ferrous Sulfate (Feosol) 324 mg PO WB [facility] Last Admin: 02/06/17 08:33 Dose: 324 mg Finasteride (Proscar) 5 mg PO DAILY [facility] Last Admin: 02/06/17 08:35 Dose: 5 mg Magnesium Hydroxide (Mom) 30 ml PO DAILY PRN PRN Reason: Constipation Last Admin: 02/04/17 12:23 Dose: 30 ml Mexiletine HCl (Mexitil) 150 mg PO TIDWM [facility] Last Admin: 02/06/17 08:33 Dose: 150 mg Nitroglycerin (Nitrostat) 0.4 mg SL Q5MIN3 PRN PRN Reason: Angina Simvastatin (Zocor) 40 mg PO [facility] Last Admin: 02/05/17 20:54 Dose: 40 mg Sodium Chloride (Deep Sea Nasal Moisturizing [place]) 1 spray EA NOSTRIL PRN PRN PRN Reason: Congestion Sodium Chloride (Iv Flush) 10 - 80 ml IVF PRN PRN PRN Reason: Flushing Last Admin: 02/03/17 21:01 Dose: 10 ml Tamsulosin HCl (Flomax) 0.4 mg PO [facility] Last Admin: 02/05/17 20:54 Dose: 0.4 mg <Kira Silverman - 02/06/17 13:06> Assessment and Plan - Assessment and Plan (1) Atherosclerotic heart disease of [place] coronary artery without angina pectoris Current visit: No Status: Acute (2) CKD (chronic kidney disease) Current visit: No Status: Chronic (3) Cardiomyopathy Current visit: No Status: Chronic (4) Essential (primary) hypertension Current visit: No Status: Acute (5) Mixed hyperlipidemia Current visit: No Status: Acute (6) Dyspnea, unspecified Current visit: No Status: Acute (7) 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 Will reassess breathing and fluid status daily (2) Dyspnea, unspecified Current visit: No Status: Acute (3) 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 Status: Chronic Continues to have frequent PVCs with Mexitel and Amiodarone (4) Atherosclerotic heart disease of [place] coronary artery without angina pectoris Current visit: No Status: Acute (5) Cardiomyopathy Current visit: No Status: Chronic (6) Essential (primary) hypertension Current visit: No Status: Acute (7) Mixed hyperlipidemia Current visit: No Status: Acute (8) CKD (chronic kidney disease) Current visit: No Status: Chronic With acute increase due to diuresis. (9) Afib Current visit: Yes Status: Acute Having some AFib with aberrancy on telemetry. Continue Amiodarone and Mexitel <Kira Silverman - 02/07/17 11:15> - Attestation Attestation Narrative: 02/07/17 12:59 Recommendation After examining the patient I agree with the above assessment. I am involved in the formulation of the patient's plan of care. <Moncho Meehan - 02/07/17 12:59> Hospital Course Summary Disclaimer: The visit summary below is not to be considered part of the above Progress Note. <Moncho Meehan - 02/07/17 12:59> The visit summary below is not to be considered part of the above Progress Note. <Kira Silverman - 02/06/17 13:06> Hospital Course: Cardiology to manage Bumex and cardiac meds. Continue to monitor kidney function/electrolytes Continue Amiodarone 200mg daily and Mexiletine 150mg TID for frquent PVCs. Continue Coreg and Aspirin for cardiomyopathy and CAD Continue Statin therapy Thank you for the consult. We will continue to follow along with you. 02/06/17 Agree with holding diuretic for now. Will reassess breathing and fluid status daily Continues to have frequent PVCs with Mexitel and Amiodarone AFIB: Having some AFib with aberrancy on telemetry. Continue Amiodarone and Mexitel <Kira Silverman - 02/07/17 11:16> Addendum entered and electronically signed by Kira Silverman APRN 02/07/17 11: 27: Patient is not a candidate for anticoagulation at this time due to his anemia ( Hgb 10.1), and thrombocytopenia (platelets 69) and recent fall history.
[2017-02-06 19:52] VITALS: RESP 16
[2017-02-06] MEDS: SALINE FLUSH 10ml SYRINGE IVF PRN (19:54)
[2017-02-06] MEDS: FAMOTIDINE 20 MG TABLET PO SCH (20:01)
[2017-02-06] MEDS: SIMVASTATIN 40 MG TABLET PO SCH (20:01)
[2017-02-06] MEDS: TAMSULOSIN 0.4 MG CAPSULE PO SCH (20:01)
[2017-02-07] MEDS: AMIODARONE 200 MG TABLET PO SCH (09:17)
[2017-02-07] MEDS: MEXILETINE 150 MG CAPSULE PO SCH ×2 (09:17→11:11)
[2017-02-07] MEDS: FINASTERIDE 5 MG TABLET PO SCH (09:18)
[2017-02-07] MEDS: ASPIRIN *EC* 81 MG TABLET PO SCH (09:18)
[2017-02-07] MEDS: CARVEDILOL 3.125 MG TABLET PO SCH (09:19)
[2017-02-07] MEDS: FERROUS SULFATE 324 MG TABLET PO SCH (09:19)
[2017-02-07 09:40] VITALS: BP 122/65; PULSE 57; TEMP 98.5; O2SAT 92
--- NOTE | 2017-02-07 10:28 | IRU Progress Note ---
- Subjective/Serverity of Illness Mr. Sepulveda was evaluated in the therapy area. He does have some degree of dyspnea with ambulation although he is walking with a walker quite safely. He does get a bit lightheaded if he stands up suddenly. Has been followed by cardiology who saw him today I believe. Continues to have frequent PVCs. Questionable runs of ventricular tachycardia versus aberrancy have been noted. To the best her knowledge these are asymptomatic. He remains on amiodarone and Mexitil. He denies any chest pains. There remains some edema. With regard to therapies, he remains somewhat unsafe with a walker. He is walking with maximal assistance of 1 person. In addition, his oxygen saturations do drop with activity to the 80s. Medical conditions identified are as follows: 1. Congestive cardiomyopathy with global hypokinesis and ejection fraction of 3035 percent with recent fluid excess. Cardiology saw patient today. Remains on same medications. Diuretics have been held due to elevated creatinine. 2. Elevated troponin of uncertain significance. Denies any chest pain at present. Electrocardiogram feels to reveal acute changes. Continues to deny any chest discomfort. 3. Thrombocytopenia, worsening, possibly secondary to heparin versus other etiology. Platelets are down to 69,000. Uncertain etiology. He is not on any heparin or Lovenox at present. 4. Acute on chronic kidney disease. Has chronic kidney disease stage IV. Creatinine has been stable since diuretics have been held. 5. Frequent PVCs with recent hypotension in the 's. Continues to have frequent PVCs with occasional runs of wide complex tachycardia. Cardiology following. Exam Vital Signs: Temperature 98.5 F 02/07/17 08:00 Pulse Rate 57 L 02/07/17 08:00 Respiratory Rate 16 02/07/17 08:00 Blood Pressure 122/65 02/07/17 08:00 Pulse Oximetry 92 02/07/17 08:00 Height/Weight/BMI: Height 1.78 m Weight 72.1 kg Body Mass Index 23.4 Comments: The patient is awake, alert and oriented and in no acute distress. Somewhat hard of hearing. Pupils are equal. The neck is supple. Chest: Clear to auscultation bilaterally. Diminished breath sounds noted. Cor: RR with no gallop, click. Has systolic murmur second right interspace. Occasional ectopic beat identified. Somewhat distant heart sounds. Abd: soft with normo-active bowel sounds. There are no masses, no tenderness and no guarding. Extremities: Continues demonstrate 1+ edema. Weight is actually down a couple of kilograms. Results IRU - Labs Labs: Have reviewed labs and other providers notes. IRU A/P (1) Systolic CHF, acute on chronic Current visit: Yes Status: Acute Continues to have evidence of heart failure with peripheral edema. Weight is down a couple of kilograms however. Diuretics are currently being held. Does have some lightheadedness when he stands up suddenly before he gets his bearings. (2) Atherosclerotic heart disease of [place] coronary artery without angina pectoris Qualifiers: [place] vs. transplanted heart: [place] heart Qualified Code(s): I25.10 - Atherosclerotic heart disease of [place] coronary artery without angina pectoris Current visit: No Status: Acute Has had recent elevation of troponin. Denies chest pain. (3) Essential (primary) hypertension Current visit: No Status: Acute Blood pressures have been more well controlled recently. Last hypotensive episode recorded was a couple days ago. (4) Mixed hyperlipidemia Current visit: No Status: Acute (5) Thrombocytopenia Current visit: No Status: Acute Platelets have worsened down to 69,000. Have reviewed medications. No clear cut culprit is identified. (6) CKD (chronic kidney disease) Qualifiers: Chronic kidney disease stage: stage 4 (severe) Qualified Code(s): N18.4 - Chronic kidney disease, stage 4 (severe) Current visit: No Status: Chronic (7) Cardiomyopathy Qualifiers: Cardiomyopathy type: ischemic Qualified Code(s): I25.5 - Ischemic cardiomyopathy Current visit: No Status: Chronic DVT Prophylaxis: SCD's Resuscitation Status: Full Code - Course Hospital Course: Manny Shahid MD: 02/06/17 12:06 Appreciate input of hospitalists and environmental services specialist. Does have frequent PVCs. These are fairly asymptomatic. He is on amiodarone as well as Mexitil. He denies chest pain but does report shortness of breath. He is making progress with therapy. Platelets remain low but there is no bleeding. 02/07/17 10:30 Safety concerns exist. He is somewhat impulsive. Slow progress with therapy. Continues to have PVCs. Has some peripheral edema but weight is down a couple of pounds. - Interventions to Obtain Goals PT Treatment Plan: Balance/Proprioception, Functional Activities, Gait Training , Patient/Family Education, Therapeutic Exercise OT Treatment Plan: ADL (Basic Care), Balance Training, IADL, Pt./Family Education, Ther. Exercise for ADL Goals Progress/Modifications: Time spent with patient and on floor reviewing data and documentin minutes Barriers to dismissal: Safety concerns and impulsiveness, cardiac stability with CHF/cardiomyopathy and PVCs, lightheadedness with standing Medical decision-making: Have reviewed his overall situation with regard to safety for continuing therapy. We will continue physical therapy and occupational therapy at the present time. We will be aware of his cardiomyopathy and risk for worsening. Also aware of his hypoxemia with activity. This will need to be investigated prior to dismissal as well. Reviewing telemetry strips as well.
--- NOTE | 2017-02-07 11:20 | Cardiology Progress Note ---
Subjective Principal diagnosis: acute on chronic systolic heart failure <Kira Silverman - 02/07/17 11:26> Interval history: Wale is seen in follow up for HF and frequent PVCs. He is up in the dining area eating. He states he walked to the dining room with some PUCKETT. He denies dizziness, near syncope, chest pain or palpitations. Drinking well, diuresis is being held due to elevated kidney function. <Kira Silverman - 02/07/17 11:26> Exam Vital signs: Temperature 98.5 F 02/07/17 08:00 Pulse Rate 57 L 02/07/17 08:00 Respiratory Rate 16 02/07/17 08:00 Blood Pressure 122/65 02/07/17 08:00 Pulse Oximetry 92 02/07/17 08:00 <Moncho Meehan - 02/14/17 13:57> Temperature 98.5 F 02/07/17 08:00 Pulse Rate 57 L 02/07/17 08:00 Respiratory Rate 16 02/07/17 08:00 Blood Pressure 122/65 02/07/17 08:00 Pulse Oximetry 92 02/07/17 08:00 <Kira Silverman 02/07/17 11:26> - Constitutional no acute distress, cooperative <Kira Silverman 02/07/17 11:26> - Routine HEENT Exam Head: Present: normocephalic <Kira Silverman 02/07/17 11:26> ENT: Present: mucous membranes moist <AndraKira Michel 02/07/17 11:26> - Routine Neck Exam Absent: JVD, carotid bruit <AndraKira Michel 02/07/17 11:26> - Routine Chest/Breast/Axilla Exam Chest wall: Absent: tenderness <AndraKira Michel 02/07/17 11:26> - Routine Respiratory Exam Present: CTA bilaterally, diminished air movement <AndraKira Michel 02/07/17 11:26> - Routine Cardiovascular Exam Present: murmur (II/), irregular rhythm. Absent: JVD <AndraKira Michel 11:26> - Routine Abdominal Exam Present: soft, normoactive bowel sounds <Andra,Amy 02/07/17 11:26> - Routine Extremities Exam Present: edema (juliette LEs) <Kira Silverman - 02/07/17 11:26> - Routine Skin Exam Present: intact, dry, warm <Kira Silverman - 02/07/17 11:26> - Routine Neurological Exam Present: alert, oriented X3 <Kira Silverman - 02/07/17 11:26> - Routine Psychiatric Exam Present: normal affect, normal thought process <Kira Silverman - 02/07/17 11: 26> - Additional findings Additional findings: Laboratory Results - last 24 hr 02/07/17 02/07/17 04:24 04:25 WBC 5.1 RBC 2.99 L Hgb 10.1 L Hct 31.9 L MCV 106.7 H MCH 33.8 MCHC 31.7 RDW Std Deviation 53.9 H Plt Count 69 L MPV 11.7 Immature Gran % (Auto) 0.2 Neut % (Auto) 79.2 H Lymph % (Auto) 10.7 L [place] % (Auto) 9.3 H Eos % (Auto) 0.4 Baso % (Auto) 0.2 Neut # 4.0 Lymph # 0.5 L [place] # 0.5 Eos # 0.0 Baso # 0.0 Abs Immat Gran (auto) 0.01 Turbidity < 20 Sodium 137 Potassium 3.9 Chloride 94 L Carbon Dioxide 34 H Anion Gap 9 BUN 71.0 H* Creatinine 2.7 H GFR Calculation 22 BUN/Creatinine Ratio 26 Glucose 103 Calculated Osmolality 285 H Calcium 9.0 Icterus Index < 2 Specimen Hemolysis < 15 Acetaminophen (Tylenol) 325 - 650 mg PO Q5H PRN PRN Reason: Pain Al Hydroxide/Mg Hydroxide (Maalox Plus) 30 ml PO Q3H PRN PRN Reason: Indigestion Amiodarone HCl (Pacerone) 200 mg PO DAILY REPLACED BY [facility] Last Admin: 02/07/17 09:17 Dose: 200 mg Aspirin (Ecotrin) 81 mg PO DAILY REPLACED BY [facility] Last Admin: 02/07/17 09:18 Dose: 81 mg Atropine Sulfate (Atropine) 0.5 mg IVP Q5M PRN PRN Reason: Bradycardia Bisacodyl (Dulcolax) 5 - 10 mg PO DAILY PRN PRN Reason: Constipation Bisacodyl (Dulcolax) 10 mg RECTALLY DAILY PRN PRN Reason: Constipation Last Admin: 02/04/17 20:37 Dose: 10 mg Calcium Carbonate (Tums Extra Strength) 750 mg PO PRN PRN PRN Reason: Dyspepsia Last Admin: 02/07/17 09:17 Dose: 750 mg Carvedilol (Coreg) 3.125 mg PO BIDWM REPLACED BY [facility] Last Admin: 02/07/17 09:19 Dose: 3.125 mg Famotidine (Pepcid) 20 mg PO [facility] Last Admin: 02/06/17 20:01 Dose: 20 mg Ferrous Sulfate (Feosol) 324 mg PO [facility] Last Admin: 02/07/17 09:19 Dose: 324 mg Finasteride (Proscar) 5 mg PO DAILY REPLACED BY [facility] Last Admin: 02/07/17 09:18 Dose: 5 mg Magnesium Hydroxide (Mom) 30 ml PO DAILY PRN PRN Reason: Constipation Last Admin: 02/07/17 11:11 Dose: 30 ml Mexiletine HCl (Mexitil) 150 mg PO TIDWM REPLACED BY [facility] Last Admin: 02/07/17 11:11 Dose: 150 mg Nitroglycerin (Nitrostat) 0.4 mg SL Q5MIN3 PRN PRN Reason: Angina Simvastatin (Zocor) 40 mg PO [facility] Last Admin: 02/06/17 20:01 Dose: 40 mg Sodium Chloride (Deep Sea Nasal Moisturizing [place]) 1 spray EA NOSTRIL PRN PRN PRN Reason: Congestion Sodium Chloride (Iv Flush) 10 - 80 ml IVF PRN PRN PRN Reason: Flushing Last Admin: 02/06/17 19:54 Dose: 10 ml Tamsulosin HCl (Flomax) 0.4 mg PO [facility] Last Admin: 02/06/17 20:01 Dose: 0.4 mg <Kira Silverman - 02/07/17 11:26> Assessment and Plan - Assessment and Plan (1) Atherosclerotic heart disease of [place] coronary artery without angina pectoris Status: Acute (2) CKD (chronic kidney disease) Status: Chronic (3) Cardiomyopathy Status: Chronic (4) Essential (primary) hypertension Status: Acute (5) Mixed hyperlipidemia Status: Acute (6) Dyspnea, unspecified Status: Acute (7) Ventricular premature complex Status: Chronic (8) Systolic CHF, acute on chronic Status: Acute (9) Afib Status: Acute <Moncho Meehan - 02/14/17 13:57> (1) Systolic CHF, acute on chronic Status: Acute Continue to hold diuresis due to kidney function. Breathing okay to day, no JVD. (2) Dyspnea, unspecified Status: Acute (3) Ventricular premature complex Status: Chronic (4) Atherosclerotic heart disease of [place] coronary artery without angina pectoris Status: Acute (5) Cardiomyopathy Status: Chronic (6) Essential (primary) hypertension Status: Acute (7) Mixed hyperlipidemia Status: Acute (8) CKD (chronic kidney disease) Status: Chronic (9) Afib Status: Acute paroxysmal AFib with aberrancy. Patient is not a candidate for anticoagulation at this time due to his anemia (Hgb 10.1), and thrombocytopenia (platelets 69) and recent fall history. <Kira Silverman - 02/07/17 11:16> - Attestation Attestation Narrative: 02/14/17 13:56 Recommendation After examining the patient I agree with the above assessment. I am involved in the formulation of the patient's plan of care. <Moncho Meehan - 02/14/17 13:56> Hospital Course Summary Disclaimer: The visit summary below is not to be considered part of the above Progress Note. <Moncho Meehan - 02/14/17 13:57> The visit summary below is not to be considered part of the above Progress Note. <Kira Silverman - 02/07/17 11:26> Hospital Course: Cardiology to manage Bumex and cardiac meds. Continue to monitor kidney function/electrolytes Continue Amiodarone 200mg daily and Mexiletine 150mg TID for frquent PVCs. Continue Coreg and Aspirin for cardiomyopathy and CAD Continue Statin therapy Thank you for the consult. We will continue to follow along with you. 02/06/17 Agree with holding diuretic for now. Will reassess breathing and fluid status daily Continues to have frequent PVCs with Mexitel and Amiodarone AFIB: Having some AFib with aberrancy on telemetry. Continue Amiodarone and Mexitel 02/07/17 11:21 Continue to hold diuresis due to kidney function. Breathing okay today, no JVD. Paroxysmal AFib with aberrancy. Patient is not a candidate for anticoagulation at this time due to his anemia (Hgb 10.1), and thrombocytopenia (platelets 69) and recent fall history. Continue Mexitel and Amiodarone. <Kira Silverman - 02/07/17 11:26>
[2017-02-07] MEDS ORDERED: SODIUM BICARBONATE 8.4% (50mEq/50ml) PFS (1 amp) IVP ONE (14:00)
[2017-02-07] MEDS ORDERED: LIDOCAINE 2% (100mg/5ml) SYRINGE (PF) IVP ONE (14:00)
[2017-02-07] MEDS ORDERED: METOPROLOL 5mg/5ml INJECTION IVP ONE (14:00)
[2017-02-07] MEDS ORDERED: ATROPINE 1 MG/ML INJECTION IVP ONE (14:00)
[2017-02-07] MEDS ORDERED: [UNRECOGNIZED DRUG - OTHER] IM ONE (14:00)
[2017-02-07] MEDS ORDERED: EPINEPHRINE 1 MG/10 ML PFS IV ONE (14:00)
--- NOTE | 2017-02-07 15:00 | Progress Note ---
Progress Note: Just prior to 1:55 PM after completing some therapy, the patient was sitting in his chair. Telemetry called the nurse to report ventricular tachycardia. She went to check on him. He was leaning forward and not responsive. We went to check on the patient at that time as well. He was having agonal respirations and could not respond to us. We immediately transferred him to the bed with a backboard in place. Bryanna Gaffney RN and I initiated CPR. Chest compressions were begun at 1:55 PM. A CODE BLUE was called. Within approximately 5 minutes, emergency department physician and hospitalist physician arrived and assumed care of the resuscitative efforts. Patient's and patient's son were contacted and arrived subsequently.
--- NOTE | 2017-02-07 15:06 | Discharge Summary ---
Discharge Information Date of admission: 02/03/17 10:50 Anticipated date of discharge: 02/07/17 (Pt at 1455 hours) Attending Physician: Manny Shahid MD Consults: 02/03/17 13:25 Physician Consult [CONS] Routine Consulting Provider: Moncho Meehan Reason For Exam: ACS, CHF Ordering Provider has Notified Disability Hearing Officer: Yes Comment: MD aware 02/03/17 15:43 Physician Consult [CONS] Routine Consulting Provider: Jermaine Tipton Reason For Exam: Medical Management Ordering Provider has Notified Disability Hearing Officer: No - Discharge Diagnosis (1) Systolic CHF, acute on chronic Status: Acute Discharge Diagnosis: Systolic heart failure, acute on chronic wiht EF 30-35% (2) Atherosclerotic heart disease of [place] coronary artery without angina pectoris Status: Acute Discharge Diagnosis: ASHD (3) Essential (primary) hypertension Status: Acute Discharge Diagnosis: Benign essential hypertension (4) Mixed hyperlipidemia Status: Acute (5) Thrombocytopenia Status: Acute Discharge Diagnosis: Acute thrombocytopenia of uncertain cause, without spontaneous bleeding (6) CKD (chronic kidney disease) Status: Chronic Discharge Diagnosis: Chronic kidney disease stage IV (7) Cardiomyopathy Status: Chronic Discharge Diagnosis: Congestive ischemic cardiomyopathy - Laboratory Labs: 02/07/17 14:40 02/07/17 14:40 History of Present Illness HPI: 02/07/17 15:04 Mr. Sepulveda is an 89-year-old white male who had been playing for a home and went to his car. The roof was wet and he lost his spine nurse. He fell to the ground without known head injury nor loss of consciousness. However, ambulance was called and upon their arrival he was apparently hypotensive and with frequent PVCs. He was brought to the emergency department and admitted to the intensive care unit. He was evaluated and treated by the hospitalist service as well as cardiology ( Dr. Meehan). He was treated with a heparin drip and amiodarone he was noted to develop some thrombocytopenia without active bleeding. Because of his debilitated condition he was felt to be an appropriate candidate for acute inpatient rehabilitation before he was transferred for further treatment. Hospital Course This is a general summary of the patient's hospital course. For more details refer to the complete medical record. The patient had been stabilized in the acute care hospital. He had been treated for hypotension, fluid excess, ischemic congestive cardiomyopathy and frequent PVCs. He was followed by the hospitalist service as well as cardiology while on the inpatient rehabilitation service. He had developed some transient hypoxemia with activity. This was easily corrected with supplemental oxygen. He denied any chest pain. He was working with therapy. He was felt to be somewhat impulsive and there were safety concerns. He worked with both physical therapy and occupational therapy as well as underwent medical supervision as noted above. After therapy on the afternoon of 02/07/2017 the patient was sitting in his chair. Telemetry noted what appeared to be ventricular tachycardia. The nurse was contacted and she went to check on him. He was leaning forward in his chair and his eyes "rolled back." I went to check on the patient immediately and he was in agonal respirations. With the assistance of 2 other people, we were able to transfer him to his bed and placed a backboard under him. We could not feel pulses. He was having some occasional agonal respirations. He was not responsive. We immediately called a CODE BLUE and immediately started chest compressions at 1:55 PM. [facility] team arrived within [address] Tipton assumed management of the resuscitative efforts. Subsequently, Dr. Meehan arrived. He was given multiple medications with regard to his CODE BLUE (epinephrine, atropine, fluids). An interosseous access was placed in the right tibia. IV access was obtained in his right arm. At times pulses could be obtained but this rapidly deteriorated. Family arrived ( and son). They were counseled by Dr. Tipton and Dr. Meehan who arrived subsequently. The code blue was discontinued at 1455 hrs. with the patient being pronounced at that time. Hospital course: Cardiology to manage Bumex and cardiac meds. Continue to monitor kidney function /electrolytes Continue Amiodarone 200mg daily and Mexiletine 150mg TID for frquent PVCs. Continue Coreg and Aspirin for cardiomyopathy and CAD Continue Statin therapy Thank you for the consult. We will continue to follow along with you. 02/06/17 Agree with holding diuretic for now. Will reassess breathing and fluid status daily Continues to have frequent PVCs with Mexitel and Amiodarone AFIB: Having some AFib with aberrancy on telemetry. Continue Amiodarone and Mexitel 02/07/17 11:21 Continue to hold diuresis due to kidney function. Breathing okay today, no JVD. Paroxysmal AFib with aberrancy. Patient is not a candidate for anticoagulation at this time due to his anemia (Hgb 10.1), and thrombocytopenia (platelets 69) and recent fall history. Continue Mexitel and Amiodarone. Discharge Plan - Med Rec/Dispo Referrals/Follow Up: Tacho Hodge DO [Physician] - (Dr. David Hodge on 02/23/17 at 9:30 am. Check in at 9:00 am. Please bring Photo ID and Insurance Cards. . ) Prescriptions: No Action Finasteride 5 mg PO DAILY #0 Multivitamin [Multi-Vitamin Daily] 1 tab PO DAILY #0 Carvedilol 3.125 mg PO BIDWM #0 Ferrous Sulfate [Iron] 325 mg PO DAILY Aspirin [Adult Low Dose Aspirin EC] 81 mg PO DAILY Famotidine [Pepcid] 20 mg PO HS tablet Mexiletine [Mexitil] 150 mg PO TIDWM capsule CALCIUM CARBONATE Chewable [Tums Extra Strength] 750 mg PO PRN PRN tab.chew PRN Reason: Dyspepsia Amiodarone HCl 200 mg PO DAILY #0 Tamsulosin HCl 0.4 mg PO HS #0 Simvastatin [Zocor] 40 mg PO HS Nitroglycerin [Nitrostat] 0.4 mg SL Q5MIN3 PRN PRN Reason: Chest Pain Bumetanide Tab [Bumex Tab] 2 mg PO TID tablet Sodium Chloride [Deep Sea] 1 spray EA NOSTRIL PRN PRN spray PRN Reason: Congestion
--- NOTE | 2017-02-07 19:13 | Progress Note ---
Progress Note: CODE BLUE NOTE Code activated as patient become unresponsive. Tele report from moments prior to event was showing VTACH. IV site had been lost prior to CODE. During code, IV and IO access obtained. Vanessa Sawyer, Danuta, and Shefali did all respond to code and provided assistance. See nursing CODE summary report for medications and defibrillation given. During CODE did briefly obtain pulse and BP, but not able to sustain. and son and daughter did arrive during resuscitative effort. Patient not responding to efforts - family updated by Dr Meehan and myself about futility of continuing effort. Return to room. Asked for CPR to cease. Rhythm was asystole. Patient pronounced after about 1 hour of resuscitative effort.
== END 2017-02-07 14:55 | disposition expired | DRG 945 ==
PROVIDERS: ADMIT Internal Medicine; ATTEND Internal Medicine